=== PATIENT | female | born 1960 | race Two or more races ===

== ENCOUNTER → 2016-11-29 | Outpatient (CLI) | payer BC ==
[~2016-11-29] MED LIST: ASPI81TA4 PO; COLA50CA3 PO; GASTROGRAFIN SOLUTION 30ML (Q9963) As Ordered ONE; ISOVUE-370 76% 100ML VIAL (Q9967) As Ordered ONE; PERC7.5T12 PO
--- NOTE | 2016-11-29 17:23 | REP ---
CT abdomen and pelvis with IV contrast. History: Left lower quadrant abdominal pain. Comparison CT study: February 21, 2013. CT contrast dose: 100 ml of intravenous Isovue 370. CT findings: Preliminary digital grievance and appeals specialist radiograph demonstrates a normal bowel gas pattern and a staghorn calculus in the region of the left kidney. The lung bases are clear. There is no evidence of pleural effusion or ascites. The liver is markedly hypodense consistent with fairly advanced fatty infiltration of the liver. This is similar to the prior CT study, perhaps more pronounced. The gallbladder contains small calcified gallstones in the dependent portion. There are several calcifications in the head of the pancreas and the tail of the pancreas consistent with previous pancreatitis. This is unchanged as well. No pancreatic mass or cyst. No adrenal lesion is seen on either side. The right kidney enhances normally and is morphologically intact. No hydronephrosis or right renal calculus is seen. The left kidney shows rather marked cortical scarring and overall atrophy. It measures 9.3 cm in length. There is moderate to marked intrarenal hydronephrosis due to a staghorn calculus measuring 2.8 cm in greatest diameter. This calculus appears to be at least partially obstructing the ureteropelvic junction. There is some thickening and enhancement of the ureteral wall below the calculus in the proximal ureter. This may reflect pyelitis. There are other intrarenal calculi within the dilated intrarenal collecting system. These include a 1 cm calculus in the lower pole collecting system and several smaller calculi. These findings are similar to the prior CT study. No bladder, uterine or ovarian abnormality is seen. The patient is status post ventral hernia repair and there is a seroma cavity along the anterior abdominal wall below the level of the umbilicus. This is decreased in size when compared with the prior study from February 21, 2013. It currently measures 4.8 cm medial to lateral by 2.9 cm anterior to posterior by 6.6 cm cranial to caudal. No abdominal wall defect is seen. Impression: 1. Marked diffuse fatty infiltration of the liver. 2. Cholelithiasis. 3. Pancreatic calcifications consistent with chronic pancreatitis. 4. Atrophic, scarred left kidney containing multiple calculi including a 2.8 cm staghorn calculus partially obstructing the renal pelvis on the left. There is enhancement and slight thickening of the ureteral wall below this consistent with pyelitis. 5. Postop seroma anterior abdominal wall, decreased in size compared to the 2013 prior study. Signed by Petr Almaguer MD 11/30/2016 02:12 P
== END ==
LOC: M RAD 14:40
PROVIDERS: ATTEND Surgery
DX: K76.0 Fatty (change of) liver, not elsewhere classified (principal); K80.20 Calculus of gallbladder without cholecystitis without obstruction; N20.0 Calculus of kidney
CPT/HCPCS: 74177; Q9963; Q9967

== ENCOUNTER → 2016-12-21 | Outpatient (REF) | payer BC ==
[~2016-12-21] MED LIST changes: -GASTROGRAFIN SOLUTION 30ML (Q9963) As Ordered ONE; -ISOVUE-370 76% 100ML VIAL (Q9967) As Ordered ONE
[2016-12-21 20:36] LABS: CALCIUM OXALATE CRYSTALS LARGE; YEAST LIKE CELL URINE AUTO SMALL
== END ==
LOC: M SMT 16:55
PROVIDERS: ATTEND Nurse Practitioner Women's Health
DX: N20.0 Calculus of kidney (principal)

== ENCOUNTER → 2016-12-21 | Outpatient (CLI) | payer BC ==
[~2016-12-21] MED LIST changes: +LIDOCAINE 1% MDV 20ML VIAL As Ordered ONE
--- NOTE | 2016-12-21 15:48 | REP ---
ULTRASOUND GUIDED SEROMA DRAIN: The procedure was performed under the direct supervision of Dr. Almaguer. The patient has a history of a 4.8 x 2.9 x 6.6 cm anterior abdominal wall seroma seen on the previous CAT scan dated 12/10/2016. The risks and benefits of the procedure were explained to the patient and informed consent was obtained. The abdominal seroma was localized using ultrasound guidance. The skin was prepped and draped in a sterile fashion. 1% Xylocaine was used as a local anesthetic. Using ultrasound guidance an attempt was made to advance an 8-Bahraini SKATER APDL Catheter into the seroma, however, it could not be advanced beyond the rind of the seroma. The catheter was removed and a 5-Bahraini SKATER Centesis Catheter was inserted. 5 mL of reddish-brown fluid was withdrawn and sent to the lab. The patient tolerated the procedure well and there were no immediate complications. After the appropriate amount of monitored convalescence the patient was discharged from the department. Reviewed by STEPHANIE Antonio 12/21/2016 04:04 PEdited and Signed by Petr Almaguer MD 12/21/2016 05:16 P
== END ==
LOC: M RADPRO 08:18
PROVIDERS: ATTEND Surgery
DX: L76.34 Postprocedural seroma of skin and subcutaneous tissue following other procedure (principal); R10.814 Left lower quadrant abdominal tenderness; Z88.7 Allergy status to serum and vaccine; Z88.8 Allergy status to other drugs, medicaments and biological substances; Z79.899 Other long term (current) drug therapy

== ENCOUNTER → 2016-12-28 | Outpatient (CLI) | payer BC ==
[~2016-12-28] MED LIST changes: +FUROSEMIDE 20 MG/2 ML VIAL (J1940) As Ordered ONE; -LIDOCAINE 1% MDV 20ML VIAL As Ordered ONE
--- NOTE | 2016-12-28 15:29 | REP ---
NUCLEAR RENAL SCINTIGRAPHY WITH DIFFERENTIAL FLOW AND FUNCTION ANALYSIS AND POST-LASIX WASHOUT VENOGRAPHY: HISTORY: Staghorn calculus. Atrophic kidney. Hydronephrosis with obstruction. The patient reports left flank pain. COMPARISON: CT study, November 29, 2016. TECHNIQUE: 8.7 mCi technetium 99m MAG-3 is injected, and posterior flow and excretory phase images are acquired. Renal cortical regions of interest are drawn, and time activity curves are plotted for renal function analysis. 20 mg of intravenous Lasix is given and post-Lasix washout venography is performed bilaterally. SCINTIGRAPHIC FINDINGS: Posterior flow study shows delayed appearance of radiotracer in the atrophic left kidney. Excretory phase images show symmetric visualization of the renal collecting system bilaterally. There is, however, evidence of moderate hydronephrosis in the atrophic left kidney. The left ureter is labeled indicating that there is no evidence of complete blockage. Right ureter is labeled as well. Pre- and postvoid bladder images show persistent dilated collecting system uptake in the left kidney. Differential function analysis shows asymmetric renal cortical counts with 18% of overall renal cortical counts accumulated in the left kidney and 82% in the right kidney. [id number] activity is normal bilaterally at 3 minutes on the left and 2 minutes on the right. Time to half-max activity is normal bilaterally at 8.9 minutes on the left and 6.3 minutes on the right. Post-Lasix venography shows time to half-max Lasix activity at 13.5 minutes on the left and 12 minutes on the right. IMPRESSION: Asymmetric kidneys with atrophy and hydronephrosis on the left. Post-Lasix washout shows fairly good washout indicating lack of complete obstruction. Signed by Petr Almaguer MD 12/28/2016 05:30 P
== END ==
LOC: M RAD 09:49
PROVIDERS: ATTEND Nurse Practitioner Women's Health
DX: N20.0 Calculus of kidney (principal)
CPT/HCPCS: 78708; A9562; J1940

== ENCOUNTER → 2017-02-07 | Outpatient (CLI) | payer BC ==
[~2017-02-07] MED LIST changes: +DYMI137S; -FUROSEMIDE 20 MG/2 ML VIAL (J1940) As Ordered ONE; +GLUCPOW24 PO; +METO-398 PO; +MULTCAP11 PO; +VITAPOW41 PO
[2017-02-07 11:05] LABS: MEAN CORPUSCULAR HEMOGLOBIN 29.9 pg (27.0-33.0); MEAN CORPUSCULAR HGB CONC 33.7 g/dl (32.0-36.5); MEAN CORPUSCULAR VOLUME 88.8 fl (80.0-96.0); PLATELET COUNT, AUTOMATED 337 10^3/uL (150-450); WHITE BLOOD COUNT 7.6 10^3/uL (4.0-10.0)
--- NOTE | 2017-02-07 11:16 | REP ---
TWO VIEW CHEST: COMPARISON: 01/23/2014. There is no evidence of acute infiltrate. No pleural effusion is seen. The heart is normal in size. The mediastinal silhouette is unremarkable. The visualized osseous structures are intact. There are degenerative changes of the spine. IMPRESSION: No acute pulmonary disease. Signed by Michael Raymundo MD 02/07/2017 12:41 P
[2017-02-07 11:40] LABS: INR 0.86
[2017-02-07 12:24] LABS: ANION GAP 6 MEQ/L (8-16); BLOOD UREA NITROGEN 10 MG/DL (7-18); CALCIUM LEVEL 9.9 MG/DL (8.5-10.1); CARBON DIOXIDE LEVEL 30 MEQ/L (21-32); CHLORIDE LEVEL 101 MEQ/L (98-107); CREATININE FOR GFR 0.75 MG/DL (0.55-1.02); GLOMERULAR FILTRATION RATE > 60.0 (>51); GLUCOSE, FASTING 164 MG/DL (70-105); POTASSIUM SERUM 4.4 MEQ/L (3.5-5.1); SODIUM LEVEL 137 MEQ/L (136-145)
--- NOTE | 2017-02-07 21:13 | ECGEPIP ---
Stationary ECG Study [facility] Test Date: 2017-02-07 Pat Name: PATRICK HAYNES Department: Room: - Gender: F Perfume Compounder: [facility] : 1960 Requested By: CHAN Kirby Order Number: [id number] Reading MD: Michael Yusuf Measurements Intervals [place] Rate: 70 P: 13 WA: 163 QRS: -34 QRSD: 100 T: 3 QT: 356 QTc: 386 Interpretive Statements Normal sinus rhythm Left axis deviation Incomplete right bundle branch block Nonspecific T wave abnormality Probable pulmonary disease No significant change when compared to prior tracing of 01/23/2014 Electronically Signed On 02-07-2017 21:12:58 EST by Michael Yusuf
== END ==
LOC: M LAB 10:10
PROVIDERS: ATTEND Urology
DX: Z01.818 Encounter for other preprocedural examination (principal); N26.1 Atrophy of kidney (terminal)

== ENCOUNTER 2017-02-22 06:05 | Inpatient (IN) | payer BC ==
[~2017-02-22] VITALS: Ht 162.6 cm; Wt 85.0 kg
[2017-02-22] VITALS (7 sets, daily range): BP systolic 98–138; BP diastolic 53–78
[2017-02-22] MEDS: CIPROFLOXACIN 500 MG TAB PO SCH ×2 (06:00→17:08)
[2017-02-22] MEDS ORDERED: LIDOCAINE 1% MDV 20ML VIAL SQ PRN (06:15)
[2017-02-22] MEDS ORDERED: LR 1,000 ML IV SCH ×2 (06:15→11:30)
[2017-02-22] MEDS ORDERED: MIDAZOLAM INJ 2 MG/2 ML VIAL (J2250) As Ordered ONE (07:08)
[2017-02-22] MEDS ORDERED: fentaNYL 100 MCG/2 ML INJECTION (J3010) As Ordered ONE (07:08)
[2017-02-22] MEDS ORDERED: SCOPOLAMINE 1.5 MG TRANSDERMAL As Ordered ONE (07:13)
[2017-02-22] MEDS ORDERED: SCOPOLAMINE 1.5 MG TRANSDERMAL TOP ONE (07:30)
[2017-02-22] MEDS ORDERED: ROCURONIUM BROMIDE 50 MG/5 ML VIAL As Ordered ONE (08:20)
[2017-02-22] MEDS ORDERED: HYDROmorphone HCL 2 MG/ML 1ML VIAL (J1170) As Ordered ONE ×2 (08:32→10:37)
[2017-02-22] MEDS ORDERED: PHENYLephrine HCL 500 MCG/5 ML (100MCG/ML) SYRINGE (J2370) As Ordered ONE ×2 (08:45→10:18)
[2017-02-22] MEDS ORDERED: KETOROLAC 60 MG/2 ML VIAL (J1885) As Ordered ONE (08:45)
[2017-02-22] MEDS ORDERED: ONDANSETRON 4MG/2ML VIAL (J2405) As Ordered ONE (08:45)
[2017-02-22] MEDS ORDERED: LIDOCAINE 2% INJ 100 MG/5 ML SDV (FOR ANES.) As Ordered ONE (08:45)
[2017-02-22] MEDS ORDERED: ePHEDrine SULFATE 25 MG/5 ML(5MG/ML) SYRINGE As Ordered ONE (08:45)
[2017-02-22] MEDS ORDERED: PROPOFOL 200 MG/20 ML VIAL As Ordered ONE ×2 (08:45→10:05)
[2017-02-22] MEDS ORDERED: dexameTHASONE 4 MG/ML 1ML VIAL (J1100) As Ordered ONE (08:45)
[2017-02-22] MEDS ORDERED: SUGAMMADEX SODIUM 500 MG/5 ML VIAL (BRIDION) As Ordered ONE (10:18)
[2017-02-22] MEDS ORDERED: oxyCODONE 5MG TAB PO PRN (11:30)
[2017-02-22] MEDS ORDERED: HYDROmorphone HCL 1 MG/ML SYRINGE (J1170) IV PRN (11:30)
[2017-02-22] MEDS ORDERED: PERCOCET 5MG/325MG TAB PO PRN (11:30)
[2017-02-22] MEDS ORDERED: MORPHINE 4 MG/ML 1ML SYRINGE IV PRN (11:30)
[2017-02-22] MEDS ORDERED: fentaNYL 100 MCG/2 ML INJECTION (J3010) IV PRN (11:30)
[2017-02-22] MEDS ORDERED: ONDANSETRON 4MG/2ML VIAL (J2405) IV PRN (11:30)
[2017-02-22 11:35] LABS: MEAN CORPUSCULAR HEMOGLOBIN 30.2 pg (27.0-33.0); MEAN CORPUSCULAR HGB CONC 33.7 g/dl (32.0-36.5); MEAN CORPUSCULAR VOLUME 89.4 fl (80.0-96.0); PLATELET COUNT, AUTOMATED 246 10^3/uL (150-450); RED CELL DISTRIBUTION WIDTH 11.9 % (11.5-14.5); WHITE BLOOD COUNT 10.4 10^3/uL (4.0-10.0)
[2017-02-22 12:07] LABS: ANION GAP 5 MEQ/L (8-16); BLOOD UREA NITROGEN 15 MG/DL (7-18); CALCIUM LEVEL 8.5 MG/DL (8.5-10.1); CARBON DIOXIDE LEVEL 28 MEQ/L (21-32); CHLORIDE LEVEL 104 MEQ/L (98-107); CREATININE FOR GFR 0.83 MG/DL (0.55-1.02); GLOMERULAR FILTRATION RATE > 60.0 (>51); GLUCOSE, FASTING 250 MG/DL (70-105); POTASSIUM SERUM 4.7 MEQ/L (3.5-5.1); SODIUM LEVEL 137 MEQ/L (136-145)
[2017-02-22] MEDS: ONDANSETRON 4MG/2ML VIAL (J2405) IV PRN (13:16)
[2017-02-22] MEDS ORDERED: ACETAMINOPHEN 650MG ER TAB (TYLENOL ARTHRITIS) PO SCH (14:00)
[2017-02-22] MEDS ORDERED: ACETAMINOPHEN 325 MG TAB As Ordered ONE (14:12)
[2017-02-22] MEDS: PANTOPRAZOLE 40MG INJ (PROTONIX) (C9113) IV SCH (17:07)
[2017-02-22] MEDS: KETOROLAC 30 MG/ML VIAL (J1885) IV SCH (17:08)
[2017-02-22] MEDS: KCL 20MEQ IN D5/0.45NS 1000ML 1,000 ML IV SCH ×2 (17:09→22:24)
--- NOTE | 2017-02-22 18:39 | RO ---
DATE OF PROCEDURE: 02/22/2017 PREPROCEDURE DIAGNOSIS: Left symptomatic atrophic kidney. POSTPROCEDURE DIAGNOSIS: Left symptomatic atrophic kidney. PROCEDURE: Robotic-assisted left total nephrectomy. SURGEON: Brian Alvarado MD INSPECTOR FLOOR: Macy Valdez ANESTHESIA: General. FINDINGS: Left symptomatic atrophic kidney plus staghorn. COMPLICATIONS: None. ESTIMATED BLOOD LOSS: 10 mL. HISTORY OF THE PRESENT ILLNESS: A 56-year-old female patient who has a left atrophic kidney with a left staghorn, symptomatic. For this reason, the patient has consented for a robotic-assisted left total nephrectomy. DESCRIPTION OF PROCEDURE: In a patient under general anesthesia in decubito lateral position with the right side down and the left side up, with the patient secured to the bed with a beanbag and straps, with a Kraus catheter draining the bladder, #16-Albanian Kraus with a 10 mL balloon, we started by prepping and draping the area of concern, which included the entire genitalia and abdomen. We started by doing an incision in the midclavicular line at the level of the umbilicus, 4 cm away from the umbilicus more lateral, through this incision, transverse 2 cm incision in the skin, we opened the peritoneal cavity and introduced a 12 mm balloon trocar. Inflated the balloon trocar to 40 mL. Through this trocar, we insufflated the abdomen with CO2 at a maximum pressure of 15 and high flow. Under handheld robotic camera assistance, we placed the other trocars. One trocar subcostally in the midclavicular line, 8 cm away from the optic port, two other trocars in the left lower quadrant of the abdomen, one in the midclavicular line and the other one in the anterior axillary line. Between the midclavicular line trocar and the optic port, we placed a 15 mm medical staff assistant port for the Endo Catch. We then proceeded to dock the robot. On the left arm we used monopolar scissors, on the right arm we used bipolar PK and ProGrasp. We then proceeded to actually dissect the line of Toldt, dissect the adhesions also. We retracted the descending colon toward the midline. We dissected the gonadal vein and the ureter and with the third arm, we retracted the ureter and gonadal vein laterally. This exposed the hilum. We dissected the renal vein and the renal artery and with a GI stapler 60 mm times 2.5 mm, we secured the renal vein and artery in one staple line. We then proceeded to dissect the upper pole, dissected the adrenal away from the kidney and dissected the lateral pole with monopolar scissors. Once the kidney was completely dissected, with the Hem-o-loks, we clipped the gondal vein and also clipped the ureter times two and cut it in the middle. Once the kidney was completely mobilized, we placed it into a 15 mm Endo Catch bag. We then proceeded to secure hemostasis. There were no bleeding vessels. At that moment in time, we took the third arm out and we took out all the instruments, we undocked the robot, we took the optic port, took all the trocars out, connected the two incisions from the medical staff assistant port and the right [place] to 5 cm in length transverse incision and opened the wound and took out the kidney in an Endo Catch bag. We then closed the incision with PDS #1 starting from each angle in two layers and tying in the middle. We closed the skin incision with #4-0 Monocryls. We closed the optic port incision with #2-0 Vicryls in UR-6 needles times four the first layer, times four the second layer, we closed the skin on top of this one with #4-0 Monocryls in a running fashion, subcuticular stitches. We then placed Mastisol, Steri-Strips, Telfa and Tegaderm on top of each incision site, Kraus catheter remained in place. The patient will pass to recovery and then to the floor. Once she is tolerating a regular diet and ambulating very well, she will be discharged home. There were no complications. Left kidney was sent for permanent pathology analysis.
[2017-02-22] MEDS: METOPROLOL TART 25 MG TABLET PO SCH (21:00)
[2017-02-22] MEDS: ACETAMINOPHEN 650MG ER TAB (TYLENOL ARTHRITIS) PO SCH (21:59)
[2017-02-23] VITALS (8 sets, daily range): BP systolic 104–139; BP diastolic 57–79
[2017-02-23] MEDS: KETOROLAC 30 MG/ML VIAL (J1885) IV SCH ×3 (01:30→17:17)
[2017-02-23] MEDS: CIPROFLOXACIN 500 MG TAB PO SCH ×2 (05:38→17:17)
[2017-02-23] MEDS: ACETAMINOPHEN 650MG ER TAB (TYLENOL ARTHRITIS) PO SCH ×3 (05:38→20:52)
[2017-02-23 06:59] LABS: MEAN CORPUSCULAR HEMOGLOBIN 29.6 pg (27.0-33.0); MEAN CORPUSCULAR HGB CONC 33.1 g/dl (32.0-36.5); MEAN CORPUSCULAR VOLUME 89.4 fl (80.0-96.0); PLATELET COUNT, AUTOMATED 218 10^3/uL (150-450); RED CELL DISTRIBUTION WIDTH 12.1 % (11.5-14.5); WHITE BLOOD COUNT 7.9 10^3/uL (4.0-10.0)
[2017-02-23 07:12] LABS: ANION GAP 6 MEQ/L (8-16); BLOOD UREA NITROGEN 9 MG/DL (7-18); CALCIUM LEVEL 8.1 MG/DL (8.5-10.1); CARBON DIOXIDE LEVEL 27 MEQ/L (21-32); CHLORIDE LEVEL 107 MEQ/L (98-107); CREATININE FOR GFR 0.84 MG/DL (0.55-1.02); GLOMERULAR FILTRATION RATE > 60.0 (>51); GLUCOSE, FASTING 216 MG/DL (70-105); POTASSIUM SERUM 4.3 MEQ/L (3.5-5.1); SODIUM LEVEL 140 MEQ/L (136-145)
[2017-02-23] MEDS: KCL 20MEQ IN D5/0.45NS 1000ML 1,000 ML IV SCH ×2 (09:07→17:18)
[2017-02-23] MEDS: PANTOPRAZOLE 40MG INJ (PROTONIX) (C9113) IV SCH (09:07)
[2017-02-23] MEDS: METOPROLOL TART 25 MG TABLET PO SCH ×2 (09:09→20:53)
[2017-02-23] MEDS: ONDANSETRON 4MG/2ML VIAL (J2405) IV PRN (20:54)
[2017-02-24] MEDS: ONDANSETRON 4MG/2ML VIAL (J2405) IV PRN (02:10)
[2017-02-24] MEDS: KCL 20MEQ IN D5/0.45NS 1000ML 1,000 ML IV SCH (02:11)
[2017-02-24] MEDS: KETOROLAC 30 MG/ML VIAL (J1885) IV SCH ×2 (03:12→11:13)
[2017-02-24] MEDS: CIPROFLOXACIN 500 MG TAB PO SCH (05:43)
[2017-02-24] MEDS: ACETAMINOPHEN 650MG ER TAB (TYLENOL ARTHRITIS) PO SCH (05:43)
[2017-02-24 06:00] VITALS: BP 140/72
[2017-02-24 06:39] LABS: MEAN CORPUSCULAR HEMOGLOBIN 29.9 pg (27.0-33.0); MEAN CORPUSCULAR HGB CONC 32.9 g/dl (32.0-36.5); MEAN CORPUSCULAR VOLUME 90.8 fl (80.0-96.0); PLATELET COUNT, AUTOMATED 189 10^3/uL (150-450); RED CELL DISTRIBUTION WIDTH 12.2 % (11.5-14.5); WHITE BLOOD COUNT 7.2 10^3/uL (4.0-10.0)
[2017-02-24 06:57] LABS: ANION GAP 8 MEQ/L (8-16); BLOOD UREA NITROGEN 10 MG/DL (7-18); CALCIUM LEVEL 8.5 MG/DL (8.5-10.1); CARBON DIOXIDE LEVEL 23 MEQ/L (21-32); CHLORIDE LEVEL 108 MEQ/L (98-107); GLOMERULAR FILTRATION RATE > 60.0 (>51); GLUCOSE, FASTING 210 MG/DL (70-105); POTASSIUM SERUM 4.4 MEQ/L (3.5-5.1); SODIUM LEVEL 139 MEQ/L (136-145)
[2017-02-24 08:04] VITALS: BP 140/78
[2017-02-24 08:06] VITALS: BP 140/78
[2017-02-24] MEDS: PANTOPRAZOLE 40MG INJ (PROTONIX) (C9113) IV SCH (08:35)
[2017-02-24] MEDS: METOPROLOL TART 25 MG TABLET PO SCH (08:36)
[2017-02-24] MEDS ORDERED: TYLE650T35 PO (10:36)
[2017-02-24] MEDS ORDERED: CIPR500T3 PO (10:37)
--- NOTE | 2017-02-24 17:06 | DSES ---
DATE OF ADMISSION: 02/22/2017 DATE OF DISCHARGE: 02/24/2017 ADMISSION DIAGNOSIS: Left atrophic kidney with a staghorn. DISCHARGE DIAGNOSIS: Left atrophic kidney with a staghorn. ADMITTING SURGEON: Dr. Brian Alvarado DISCHARGING SURGEON: Dr. Brian Alvarado HISTORY OF PRESENT ILLNESS: This is a 56-year-old female patient who has left flank pain, atrophic kidney, who has had multiple recurrent stone formations. She has a staghorn now in place and her function in that kidney is very poor. For this reason, she had decided for a robotic-assisted left nephrectomy. She had this surgery on 02/22/2017. After this procedure she was admitted to the hospital. HOSPITALIZATION COURSE: The patient did very well. By postoperative day #1 she was tolerating clear liquids. Her Kraus catheter was draining clear urine. For this reason, we discontinued the Kraus catheter on postoperative day #1. By postoperative day #2 she was ambulating very well, tolerating a regular diet. Her pain was controlled with by mouth pain medication, Toradol. She was passing gas with minimal abdominal. No nausea. No vomiting. For this reason she requested to go home, and we agreed upon this. The patient will go home with the following medications: Tylenol extended release 650 mg, one tablet by mouth every 8 hours by mouth as needed for pain. She will go home with ciprofloxacin 500 mg, one tablet by mouth twice a day for 10 days. She will followup at [facility] in about a week. There were no complications during surgery or hospitalization. She may shower in 3 days. She cannot carry heavy weightlifting above 20 pounds.
== END 2017-02-24 12:35 | disposition home or self-care (01) | DRG 443 ==
LOC: M OR 06:05 → M MSPAV 16:00
PROVIDERS: ADMIT Urology; ATTEND Urology
PROC: 8E0W4CZ Robotic Assisted Procedure of Trunk Region, Percutaneous Endoscopic Approach (ICD-10-PCS; 2017-02-22)
PROC: 0TT14ZZ Resection of Left Kidney, Percutaneous Endoscopic Approach (ICD-10-PCS; principal; 2017-02-22 07:30)
DX: N20.0 Calculus of kidney (principal); N26.1 Atrophy of kidney (terminal)

== ENCOUNTER → 2017-03-15 | Outpatient (REF) | payer BC ==
[~2017-03-15] MED LIST changes: +CIPR500T3 PO; +TYLE650T35 PO
[2017-03-15 12:50] LABS: MEAN CORPUSCULAR HEMOGLOBIN 29.1 pg (27.0-33.0); MEAN CORPUSCULAR HGB CONC 32.9 g/dl (32.0-36.5); MEAN CORPUSCULAR VOLUME 88.6 fl (80.0-96.0); PLATELET COUNT, AUTOMATED 325 10^3/uL (150-450); RED CELL DISTRIBUTION WIDTH 11.9 % (11.5-14.5); WHITE BLOOD COUNT 6.8 10^3/uL (4.0-10.0)
[2017-03-15 13:45] LABS: ANION GAP 7 MEQ/L (8-16); BLOOD UREA NITROGEN 13 MG/DL (7-18); CALCIUM LEVEL 9.3 MG/DL (8.5-10.1); CARBON DIOXIDE LEVEL 30 MEQ/L (21-32); CHLORIDE LEVEL 102 MEQ/L (98-107); CREATININE FOR GFR 0.76 MG/DL (0.55-1.02); GLOMERULAR FILTRATION RATE > 60.0 (>51); GLUCOSE, FASTING 203 MG/DL (70-105); POTASSIUM SERUM 4.2 MEQ/L (3.5-5.1); SODIUM LEVEL 139 MEQ/L (136-145)
== END ==
LOC: M SFHCADAM 10:26
PROVIDERS: ATTEND Urology
DX: N26.1 Atrophy of kidney (terminal) (principal)

== ENCOUNTER 2017-03-21 00:44 | Emergency (ER) | payer BC | END 2017-03-21 03:16 | disposition left against medical advice (07) | LOC: M ED 00:44 | DX: Z71.1 Person with feared health complaint in whom no diagnosis is made (principal); Z53.21 Procedure and treatment not carried out due to patient leaving prior to being seen by health care provider ==

== ENCOUNTER → 2017-03-29 | Outpatient (REF) | payer BC ==
[2017-03-29 21:44] LABS: ANION GAP 7 MEQ/L (8-16); BLOOD UREA NITROGEN 10 MG/DL (7-18); CALCIUM LEVEL 9.3 MG/DL (8.5-10.1); CARBON DIOXIDE LEVEL 29 MEQ/L (21-32); CHLORIDE LEVEL 103 MEQ/L (98-107); CREATININE FOR GFR 0.88 MG/DL (0.55-1.02); GLOMERULAR FILTRATION RATE > 60.0 (>51); GLUCOSE, FASTING 187 MG/DL (70-105); POTASSIUM SERUM 4.3 MEQ/L (3.5-5.1); SODIUM LEVEL 139 MEQ/L (136-145)
== END ==
LOC: M SMT 19:50
DX: Z90.5 Acquired absence of kidney (principal)
CPT/HCPCS: 80048

== ENCOUNTER → 2017-04-05 | Outpatient (CLI) | payer BC ==
[~2017-04-05] MED LIST changes: -ASPI81TA4 PO; -CIPR500T3 PO; -COLA50CA3 PO; -DYMI137S; -GLUCPOW24 PO; +ISOVUE-370 76% 100ML VIAL (Q9967) As Ordered; -METO-398 PO; -MULTCAP11 PO; -PERC7.5T12 PO; -TYLE650T35 PO; -VITAPOW41 PO
== END ==
LOC: M RAD 07:46
DX: Z90.5 Acquired absence of kidney (principal); K80.00 Calculus of gallbladder with acute cholecystitis without obstruction; K44.9 Diaphragmatic hernia without obstruction or gangrene; K57.90 Diverticulosis of intestine, part unspecified, without perforation or abscess without bleeding
CPT/HCPCS: Q9967

== ENCOUNTER → 2017-07-22 | Outpatient (REF) | payer BC ==
[2017-07-22 11:42] LABS: HEMATOCRIT 45.3 % (36.0-47.0); HEMOGLOBIN 15.1 g/dl (12.0-15.5); MEAN CORPUSCULAR HEMOGLOBIN 29.7 pg (27.0-33.0); MEAN CORPUSCULAR HGB CONC 33.3 g/dl (32.0-36.5); MEAN CORPUSCULAR VOLUME 89.2 fl (80.0-96.0); PLATELET COUNT, AUTOMATED 283 10^3/uL (150-450); RED BLOOD COUNT 5.08 10^6/uL (4.00-5.40); RED CELL DISTRIBUTION WIDTH 12.2 % (11.5-14.5); WHITE BLOOD COUNT 5.2 10^3/uL (4.0-10.0)
[2017-07-22 12:03] LABS: ANION GAP 6 MEQ/L (8-16); BLOOD UREA NITROGEN 11 MG/DL (7-18); CALCIUM LEVEL 9.5 MG/DL (8.5-10.1); CARBON DIOXIDE LEVEL 29 MEQ/L (21-32); CHLORIDE LEVEL 103 MEQ/L (98-107); CREATININE FOR GFR 0.88 MG/DL (0.55-1.30); GLOMERULAR FILTRATION RATE > 60.0 (>51); GLUCOSE, FASTING 266 MG/DL (70-100); POTASSIUM SERUM 4.7 MEQ/L (3.5-5.1); SODIUM LEVEL 138 MEQ/L (136-145)
== END ==
LOC: M LAB REF 11:25
DX: N26.1 Atrophy of kidney (terminal) (principal)
CPT/HCPCS: 80048

== ENCOUNTER → 2017-12-01 | Outpatient (REF) | payer BC ==
[2017-12-01 10:33] LABS: HEMATOCRIT 49.7 % (36.0-47.0); HEMOGLOBIN 16.4 g/dl (12.0-15.5); MEAN CORPUSCULAR HEMOGLOBIN 29.9 pg (27.0-33.0); MEAN CORPUSCULAR VOLUME 90.5 fl (80.0-96.0); PLATELET COUNT, AUTOMATED 267 10^3/uL (150-450); RED BLOOD COUNT 5.49 10^6/uL (4.00-5.40); WHITE BLOOD COUNT 5.7 10^3/uL (4.0-10.0)
[2017-12-01 11:07] LABS: ESTIMATED AVERAGE GLUCOSE 263 MG/DL (60-110); HEMOGLOBIN A1c 10.8 %
[2017-12-01 11:32] LABS: ALBUMIN 3.9 GM/DL (3.2-5.2); ALBUMIN/GLOBULIN RATIO 0.95 (1.00-1.93); ALKALINE PHOSPHATASE 139 U/L (45-117); ALT/SGPT 54 U/L (12-78); ANION GAP 7 MEQ/L (8-16); AST/SGOT 20 U/L (7-37); BILIRUBIN,TOTAL 0.5 MG/DL (0.2-1.0); BLOOD UREA NITROGEN 10 MG/DL (7-18); CALCIUM LEVEL 9.1 MG/DL (8.5-10.1); CARBON DIOXIDE LEVEL 27 MEQ/L (21-32); CHLORIDE LEVEL 105 MEQ/L (98-107); CHOLESTEROL LEVEL 239 MG/DL (<200); CHOLESTEROL RISK RATIO 6.459 (<5); CREATININE FOR GFR 0.84 MG/DL (0.55-1.30); GLOMERULAR FILTRATION RATE > 60.0 (>51); GLUCOSE, FASTING 266 MG/DL (70-100); HDL CHOLESTEROL 37 MG/DL (>40); LDL CHOLESTEROL 148 MG/DL (<100); NON-HDL-C 202 MG/DL; POTASSIUM SERUM 4.4 MEQ/L (3.5-5.1); SODIUM LEVEL 139 MEQ/L (136-145); TRIGLYCERIDES LEVEL 271 MG/DL (<150)
[2017-12-01 14:37] LABS: TOTAL 25(OH) VITAMIN D 22.6 NG/ML (30.0-100.0)
== END ==
LOC: M LAB REF 10:05
DX: I10 Essential (primary) hypertension (principal); E11.9 Type 2 diabetes mellitus without complications
CPT/HCPCS: 84443

== ENCOUNTER → 2018-08-04 | Outpatient (REF) | payer BC ==
[~2018-08-04] MED LIST changes: +ASPI81TA4 PO; +CALC600T60 PO; +CIPR500T3 PO; +COLA50CA3 PO; +D 50CAP2 PO; +DYMI137S; +GLUCPOW24 PO; -ISOVUE-370 76% 100ML VIAL (Q9967) As Ordered; +METF500T13 PO; +METO1TAB32 PO; +METO200T28 PO; +MULTCAP11 PO; +NO ITAB PO; +OMEP40CA2 PO; +PERC7.5T12 PO; +QC F0.52 PO; +TYLE650T35 PO; +VITAPOW41 PO
[2018-08-04 11:54] LABS: BASO % 0.5 % (0.0-1.0); EOS # 0.1 10^3/uL (0.0-0.50); EOS % 1.2 % (0.0-3.0); HEMATOCRIT 47.1 % (36.0-47.0); HEMOGLOBIN 15.6 g/dl (12.0-15.5); LYMPH # 2.3 10^3/uL (1.5-4.5); LYMPH % 41.1 % (24.0-44.0); MEAN CORPUSCULAR HEMOGLOBIN 30.5 pg (27.0-33.0); MEAN CORPUSCULAR HGB CONC 33.1 g/dl (32.0-36.5); MONO # 0.5 10^3/uL (0.0-0.8); MONO % 7.9 % (0.0-5.0); NEUTROPHILS # 2.8 10^3/uL (1.8-7.7); NEUTROPHILS % 48.9 % (36.0-66.0); PLATELET COUNT, AUTOMATED 264 10^3/uL (150-450); RED BLOOD COUNT 5.12 10^6/uL (4.00-5.40); WHITE BLOOD COUNT 5.7 10^3/uL (4.0-10.0)
[2018-08-04 12:14] LABS: ALBUMIN 3.9 GM/DL (3.2-5.2); ALT/SGPT 112 U/L (12-78); AMYLASE 45 U/L (25-115); BILIRUBIN,DIRECT 0.1 MG/DL (0.0-0.2); BILIRUBIN,TOTAL 0.5 MG/DL (0.2-1.0); BLOOD UREA NITROGEN 11 MG/DL (7-18); CREATININE FOR GFR 0.76 MG/DL (0.55-1.30); FOLATE > 24.0 NG/ML (>5.4); GLOMERULAR FILTRATION RATE > 60.0 (>51); LIPASE 341 U/L (73-393); TOTAL PROTEIN 8.2 GM/DL (6.4-8.2); VITAMIN B12 LEVEL 841 PG/ML (247-911)
[2018-08-04 12:36] LABS: H PYLORI QUALITATIVE IgG NEGATIVE (NEGATIVE)
[2018-08-08 08:06] LABS: IgA SERUM (part of Subclasses) 364 mg/dL (87-352); TISSUE TRANSGLUTAMINASE IgA <2 U/mL (0-3)
== END ==
LOC: M LAB REF 11:26
PROVIDERS: ATTEND Internal Medicine Gastroenterology
DX: R10.815 Periumbilic abdominal tenderness (principal)

== ENCOUNTER → 2018-08-18 | Outpatient (CLI) | payer BC ==
--- NOTE | 2018-08-18 09:21 | REP ---
Right upper quadrant sonography: History: Abdomen pain and abnormal liver tests. Evaluate liver gallbladder, bile duct and pancreas. Comparison CT study April 05, 2017. Sonographic findings: Scanning through the right upper quadrant of the abdomen demonstrates multiple mobile calculi in the gallbladder lumen. The common bile duct is mildly prominent at 0.8 cm. No pericholecystic fluid or gallbladder wall thickening is seen. The liver is very echodense and poorly insonated consistent with advanced fatty infiltration. This correlates with the CT findings. The liver parenchyma is not well evaluated sonographically. Liver is felt to be enlarged. Midclavicular craniocaudal diameter is 22.4 cm by ultrasound. Limited views of the pancreas show no abnormality. There is no evidence of ascites. The right kidney is unremarkable measuring 12.1 x 8.3 x 6.5 cm. Impression: Significant fatty infiltration of the liver. The liver appears enlarged with craniocaudal dimension of 22.4 cm in the midclavicular line. Multiple small gallstones are seen in the gallbladder. The common bile duct is slightly prominent at 0.8 cm. Electronically Signed by Petr Almaguer MD 08/18/2018 03:53 P
== END ==
LOC: M RAD 06:28
PROVIDERS: ATTEND Internal Medicine Gastroenterology
DX: R10.13 Epigastric pain (principal); K76.0 Fatty (change of) liver, not elsewhere classified; K80.00 Calculus of gallbladder with acute cholecystitis without obstruction

== ENCOUNTER 2018-08-25 09:03 | Day surgery (SDC) | payer BC ==
[~2018-08-25] VITALS: Ht 162.6 cm; Wt 83.5 kg
[~2018-08-25 09:03] MED LIST changes: +NS 1,000 ML IV ONE
[2018-08-25] MEDS ORDERED: PROPOFOL 200 MG/20 ML VIAL As Ordered ONE ×2 (10:51→11:38)
[2018-08-25] MEDS ORDERED: LIDOCAINE 2% INJ 100 MG/5 ML SDV (FOR ANES.) As Ordered ONE (10:51)
[2018-08-25] MEDS ORDERED: ONDANSETRON 4MG/2ML VIAL (J2405) As Ordered ONE (11:03)
--- NOTE | 2018-08-25 12:04 | ROOR ---
Patient Name: Malu Lerma Procedure Date: 08/25/2018 11:02 AM Date of : 1960 Age: 57 Room: [facility] Gender: Female Note Status: Finalized Procedure: Upper GI endoscopy Indications: Epigastric abdominal pain, Dyspepsia Providers: Solomon Kauffman MD Referring MD: DAFNE LEON MD Requesting Provider: Medicines: Monitored Anesthesia Care Complications: No immediate complications. Procedure: Pre-Anesthesia Assessment: - Prior to the procedure, a History and Physical was performed, and patient medications and allergies were reviewed. The patient is competent. The risks and benefits of the procedure and the sedation options and risks were discussed with the patient. All questions were answered and informed consent was obtained. Patient identification and proposed procedure were verified by the physician, the nurse and the anesthesiologist in the procedure room. Mental Status Examination: alert and oriented. Airway Examination: normal oropharyngeal airway and neck mobility. Respiratory Examination: clear to auscultation. CV Examination: normal. Prophylactic Antibiotics: The patient does not require prophylactic antibiotics. Prior Anticoagulants: The patient has taken no previous anticoagulant or antiplatelet agents. ASA Grade Assessment: II - A patient with mild systemic disease. After reviewing the risks and benefits, the patient was deemed in satisfactory condition to undergo the procedure. The anesthesia plan was to use monitored anesthesia care (MAC). Immediately prior to administration of medications, the patient was re-assessed for adequacy to receive sedatives. The heart rate, respiratory rate, oxygen saturations, blood pressure, adequacy of pulmonary ventilation, and response to care were monitored throughout the procedure. The physical status of the patient was re-assessed after the procedure. The Endoscope was introduced through the mouth, and advanced to the second part of duodenum. The upper GI endoscopy was accomplished without difficulty. The patient tolerated the procedure well. Findings: The Z-line was regular and was found 40 cm from the incisors. Scattered moderate inflammation characterized by erythema, friability, granularity and linear erosions was found in the gastric body and in the gastric antrum. Biopsies were taken with a cold forceps for histology. Biopsies were taken with a cold forceps for Helicobacter pylori testing. Verification of patient identification for the specimen was done by the physician and nurse using the patient's name, date and medical record number. Estimated blood loss was minimal. The duodenal bulb and second portion of the duodenum were normal. Biopsies for histology were taken with a cold forceps for evaluation of celiac disease. A non-bleeding diverticulum was found in the third portion of the duodenum. Impression: - Z-line regular, 40 cm from the incisors. - Gastritis. Biopsied. - Normal duodenal bulb and second portion of the duodenum. Biopsied. - Non-bleeding duodenal diverticulum. Recommendation: - Patient has a contact number available for emergencies. The signs and symptoms of potential delayed complications were discussed with the patient. Return to normal activities tomorrow. Written discharge instructions were provided to the patient. - High fiber diet. - Continue present medications. - Await pathology results. - Telephone GI clinic for pathology results in 1 week. - Return to primary care physician. Solomon Kauffman MD Solomon Kauffman MD 08/25/2018 12:03:43 PM Electronically signed by Solomon Kauffman MD Number of Addenda: 0 Note Initiated On: 08/25/2018 11:02 AM Estimated Blood Loss: Estimated blood loss was minimal.
--- NOTE | 2018-08-25 12:10 | ROOR ---
Patient Name: Malu Lerma Procedure Date: 08/25/2018 11:03 AM Date of : 1960 Age: 57 Room: [facility] Gender: Female Note Status: Finalized Procedure: Colonoscopy Indications: Screening for colorectal malignant neoplasm Providers: Solomon Kauffman MD Referring MD: DAFNE LEON MD Requesting Provider: Medicines: Monitored Anesthesia Care Complications: No immediate complications. Procedure: Pre-Anesthesia Assessment: - Prior to the procedure, a History and Physical was performed, and patient medications and allergies were reviewed. The patient is competent. The risks and benefits of the procedure and the sedation options and risks were discussed with the patient. All questions were answered and informed consent was obtained. Patient identification and proposed procedure were verified by the physician, the nurse and the anesthesiologist in the procedure room. Mental Status Examination: alert and oriented. Airway Examination: normal oropharyngeal airway and neck mobility. Respiratory Examination: clear to auscultation. CV Examination: normal. Prophylactic Antibiotics: The patient does not require prophylactic antibiotics. Prior Anticoagulants: The patient has taken no previous anticoagulant or antiplatelet agents. ASA Grade Assessment: II - A patient with mild systemic disease. After reviewing the risks and benefits, the patient was deemed in satisfactory condition to undergo the procedure. The anesthesia plan was to use monitored anesthesia care (MAC). Immediately prior to administration of medications, the patient was re-assessed for adequacy to receive sedatives. The heart rate, respiratory rate, oxygen saturations, blood pressure, adequacy of pulmonary ventilation, and response to care were monitored throughout the procedure. The physical status of the patient was re-assessed after the procedure. The Colonoscope was introduced through the anus and advanced to the terminal ileum, with identification of the appendiceal orifice and IC valve. The colonoscopy was technically difficult and complex due to restricted mobility of the colon and a tortuous colon. Successful completion of the procedure was aided by changing the patient to a supine position and straightening and shortening the scope to obtain bowel loop reduction. The patient tolerated the procedure well. The quality of the bowel preparation was good. The terminal ileum, ileocecal valve, appendiceal orifice, and rectum were photographed. Scope insertion time was 8 minutes. Scope withdrawal time was 10 minutes. The total duration of the procedure was 20 minutes. Findings: The perianal and digital rectal examinations were normal. The terminal ileum appeared normal. A 8 mm polyp was found in the ileocecal valve. The polyp was sessile. The polyp was removed with a cold snare. Resection and retrieval were complete. Verification of patient identification for the specimen was done by the physician and nurse using the patient's name, date and medical record number. Estimated blood loss was minimal. Patchy mild inflammation characterized by erythema and granularity was found in the ascending colon and in the cecum. Biopsies were taken with a cold forceps for histology. Four sessile polyps were found in the recto-sigmoid colon. The polyps were 3 to 5 mm in size. These polyps were removed with a cold biopsy forceps. Resection and retrieval were complete. Multiple small and large-mouthed diverticula were found from sigmoid to transverse colon. There was narrowing of the colon in association with the diverticular opening. Erythema was seen in association with the diverticular opening. There was no evidence of diverticular bleeding. Non-bleeding external and internal hemorrhoids were found during retroflexion. The hemorrhoids were large. Impression: - The examined portion of the ileum was normal. - One 8 mm polyp at the ileocecal valve, removed with a cold snare. Resected and retrieved. - Patchy mild inflammation was found in the ascending colon and in the cecum. Biopsied. - Four 3 to 5 mm polyps at the recto-sigmoid colon, removed with a cold biopsy forceps. Resected and retrieved. - Severe diverticulosis from sigmoid to transverse colon. There was narrowing of the colon in association with the diverticular opening. Erythema was seen in association with the diverticular opening. There was no evidence of diverticular bleeding. - Non-bleeding external and internal hemorrhoids. Recommendation: - Patient has a contact number available for emergencies. The signs and symptoms of potential delayed complications were discussed with the patient. Return to normal activities tomorrow. Written discharge instructions were provided to the patient. - High fiber diet. - Continue present medications. - Await pathology results. - Repeat colonoscopy in 5-10 years for surveillance based on pathology results. - Based on the biopsy results you will receive a phone call from GI clinic in 2-3 weeks to review the pathology results AND/OR your results will be faxed to your Primary care physician. - Return to primary care physician. Solomon Kauffman MD Solomon Kauffman MD 08/25/2018 12:10:29 PM Electronically signed by Solomon Kuaffman MD Number of Addenda: 0 Note Initiated On: 08/25/2018 11:03 AM Estimated Blood Loss: Estimated blood loss was minimal.
[2018-08-25 12:20] VITALS: BP 135/72
== END 2018-08-25 12:44 | disposition home or self-care (01) ==
LOC: M OPP 09:03
PROVIDERS: ATTEND Internal Medicine Gastroenterology
DX: Z12.11 Encounter for screening for malignant neoplasm of colon (principal); K64.8 Other hemorrhoids; D12.0 Benign neoplasm of cecum; K29.70 Gastritis, unspecified, without bleeding; D12.7 Benign neoplasm of rectosigmoid junction; R10.13 Epigastric pain; K57.10 Diverticulosis of small intestine without perforation or abscess without bleeding; Z79.84 Long term (current) use of oral hypoglycemic drugs; Z79.899 Other long term (current) drug therapy; Z87.891 Personal history of nicotine dependence
CPT/HCPCS: 43239; 45380; 45385; 88305; J2405

== ENCOUNTER → 2018-09-14 | Outpatient (CLI) | payer BC ==
[~2018-09-14] MED LIST changes: -NS 1,000 ML IV ONE
--- NOTE | 2018-09-14 14:03 | REP ---
MRCP examination: Without contrast study. History: Right upper quadrant pain abnormal liver studies. MRCP protocol. Comparison sonography August 18, 2018. Comparison CT study April 05, 2017. Technique: Axial and coronal T2-weighted scans are included. MRCP exam is acquired and maximal intensity projection images are generated and viewed rotationally. MRCP findings: Hepatomegaly is again noted. No focal hepatic or splenic lesion is seen. No pancreatic ductal dilation is observed. There is a small cyst in the pancreatic head measuring 6 mm. The common bile duct measures 7.5 mm in greatest diameter on today's images. The gallbladder is rather distended measuring 13.3 cm in greatest diameter. There is a small oval-shaped filling defect in the mid common bile duct segment 5 mm in greatest diameter consistent with a nonobstructive choledocholith. This is observed on maximal intensity projection images as well as source coronal scans, page 47 out of 60 series 501. Intrahepatic bile ducts are unremarkable. No stricture is appreciated. Impression: Suspect choledocholithiasis with a single small nonobstructive mid common bile duct stone. The gallbladder is distended. The common bile duct is borderline in size. The liver is enlarged. Electronically Signed by Petr Almaguer MD 09/14/2018 02:27 P
== END ==
LOC: M RAD 07:04
PROVIDERS: ATTEND Internal Medicine Gastroenterology
DX: R10.11 Right upper quadrant pain (principal); R94.5 Abnormal results of liver function studies; K83.8 Other specified diseases of biliary tract

== ENCOUNTER 2018-10-04 11:29 | Day surgery (SDC) | payer BC ==
[~2018-10-04] VITALS: Ht 162.6 cm; Wt 83.4 kg
[~2018-10-04 11:29] MED LIST changes: +GABA-845 PO; +NS 1,000 ML IV ONE
[2018-10-04] MEDS ORDERED: SCOPOLAMINE 1MG TRANSDERMAL PATCH As Ordered ONE (12:47)
[2018-10-04] MEDS ORDERED: SCOPOLAMINE 1MG TRANSDERMAL PATCH TOP ONE (13:00)
[2018-10-04] MEDS ORDERED: ROCURONIUM BROMIDE 50 MG/5 ML VIAL As Ordered ONE (13:30)
[2018-10-04] MEDS ORDERED: PROPOFOL 200 MG/20 ML VIAL As Ordered ONE (13:30)
[2018-10-04] MEDS ORDERED: LIDOCAINE 2% INJ 100 MG/5 ML SDV (FOR ANES.) As Ordered ONE (13:30)
[2018-10-04] MEDS ORDERED: MIDAZOLAM INJ 2 MG/2 ML VIAL (J2250) As Ordered ONE (13:31)
[2018-10-04] MEDS ORDERED: fentaNYL 100 MCG/2 ML INJECTION (J3010) As Ordered ONE (13:31)
[2018-10-04] MEDS ORDERED: ISOVUE-300 61% 50ML VIAL (Q9967) As Ordered ONE (13:34)
[2018-10-04] MEDS ORDERED: PHENYLephrine HCL 500 MCG/5 ML (100MCG/ML) SYRINGE (J2370) As Ordered ONE ×2 (14:24→14:44)
[2018-10-04] MEDS ORDERED: SUGAMMADEX SODIUM 500 MG/5 ML VIAL (BRIDION) As Ordered ONE (14:31)
[2018-10-04] MEDS ORDERED: ONDANSETRON 4MG/2ML VIAL (J2405) As Ordered ONE (14:31)
[2018-10-04] MEDS ORDERED: KETOROLAC 60 MG/2 ML VIAL (J1885) As Ordered ONE (14:31)
--- NOTE | 2018-10-04 15:28 | ROOR ---
Patient Name: Malu Lerma Procedure Date: 10/04/2018 1:34 PM Date of : 1960 Age: 57 Room: [facility] Gender: Female Note Status: Finalized Procedure: ERCP Indications: Bile duct stone(s) Providers: Solomon Kauffman MD Referring MD: 1. No Referring Physician 1. No Referring Physician, Admin. Requesting Provider: Medicines: Monitored Anesthesia Care Complications: No immediate complications. Procedure: Pre-Anesthesia Assessment: - Prior to the procedure, a History and Physical was performed, and patient medications and allergies were reviewed. The patient is competent. The risks and benefits of the procedure and the sedation options and risks were discussed with the patient. All questions were answered and informed consent was obtained. Patient identification and proposed procedure were verified by the physician, the nurse and the anesthesiologist in the procedure room. Mental Status Examination: alert and oriented. Airway Examination: normal oropharyngeal airway and neck mobility. Respiratory Examination: clear to auscultation. CV Examination: normal. Prophylactic Antibiotics: The patient does not require prophylactic antibiotics. Prior Anticoagulants: The patient has taken no previous anticoagulant or antiplatelet agents. ASA Grade Assessment: III - A patient with severe systemic disease. After reviewing the risks and benefits, the patient was deemed in satisfactory condition to undergo the procedure. The anesthesia plan was to use monitored anesthesia care (MAC). Immediately prior to administration of medications, the patient was re-assessed for adequacy to receive sedatives. The heart rate, respiratory rate, oxygen saturations, blood pressure, adequacy of pulmonary ventilation, and response to care were monitored throughout the procedure. The physical status of the patient was re-assessed after the procedure. The Duodenoscope was introduced through the mouth, and advanced to the duodenum and used to inject contrast into the bile duct. The ERCP was accomplished without difficulty. The patient tolerated the procedure well. Findings: The custom tailor film was normal. The esophagus was successfully intubated under direct vision. The scope was advanced to a normal major papilla in the descending duodenum without detailed examination of the pharynx, larynx and associated structures, and upper GI tract. The upper GI tract was grossly normal. A straight Roadrunner wire was passed into the biliary tree. The short-nosed traction sphincterotome was passed over the guidewire and the bile duct was then deeply cannulated. Contrast was injected. I personally interpreted the bile duct images. Ductal flow of contrast was adequate. Image quality was adequate. Contrast extended to the entire biliary tree. The lower third of the main bile duct contained filling defect(s) thought to be a stone. Biliary sphincterotomy was made with a monofilament traction (standard) sphincterotome using ERBE electrocautery. There was no post-sphincterotomy bleeding. The biliary tree was swept with a 9 mm balloon starting at the bifurcation. Sludge was swept from the duct. Two stones were removed. No stones remained. Occlusion cholangiogram at the end of the procedure did not show any residual filling defects. Pancreatic duct was neither cannulated nor opacified. Impression: - A filling defect consistent with a stone was seen on the cholangiogram. - Choledocholithiasis was found. Complete removal was accomplished by biliary sphincterotomy and balloon extraction. - A biliary sphincterotomy was performed. - The biliary tree was swept. Recommendation: - Avoid aspirin and nonsteroidal anti-inflammatory medicines. - The patient will be observed post-procedure, until all discharge criteria are met. - Patient has a contact number available for emergencies. The signs and symptoms of potential delayed complications were discussed with the patient. Return to normal activities tomorrow. Written discharge instructions were provided to the patient. - Clear liquid diet for 1 day, then advance as tolerated to resume previous diet. - Continue present medications. - Observe patient's clinical course. - Telephone endoscopist if symptomatic today. - Refer to a surgeon as previously scheduled. - Return to GI clinic in 2 weeks. - Return to primary care physician. Solomon Kauffman MD Solomon Kauffman MD 10/04/2018 3:28:22 PM Electronically signed by Solomon Kauffman MD Number of Addenda: 0 Note Initiated On: 10/04/2018 1:34 PM Estimated Blood Loss: Estimated blood loss: none.
[2018-10-04] MEDS ORDERED: ONDANSETRON 4MG/2ML VIAL (J2405) IV PRN (16:00)
[2018-10-04] MEDS ORDERED: LR 1,000 ML IV SCH (16:00)
[2018-10-04] MEDS ORDERED: LACTATED RINGER'S 1000 ML IV ONE (16:00)
[2018-10-04] MEDS ORDERED: PERCOCET 5MG/325MG TAB PO PRN (16:00)
[2018-10-04] MEDS ORDERED: fentaNYL 100 MCG/2 ML INJECTION (J3010) IV PRN (16:00)
[2018-10-04] MEDS ORDERED: HYDROMORPHONE HCL 0.5 MG/ 0.5 ML SYRINGE (J1170 PER 1) IV PRN (16:00)
--- NOTE | 2018-10-04 16:58 | REP ---
ERCP: 41 views. History: Endoscopic retrograde cholangiogram. 1 minute 15 seconds of fluoroscopy time is reported. Findings: A sequence of 41 last image hold fluoroscopically obtained spot radiographs of the right upper quadrant document common bile duct cannulation, contrast injection, balloon catheter manipulation. Electronically Signed by Petr Almaguer MD 10/04/2018 06:49 P
[2018-10-04 17:25] VITALS: BP 146/73
[2018-10-05] MEDS ORDERED: NEUR300C PO (04:58)
[2018-10-05] MEDS ORDERED: VITMTA PO (04:58)
[2018-10-05] MEDS ORDERED: METO25TA4 PO (04:58)
== END 2018-10-04 17:31 | disposition home or self-care (01) ==
LOC: M SDC 11:29
PROVIDERS: ATTEND Internal Medicine Gastroenterology
DX: K80.50 Calculus of bile duct without cholangitis or cholecystitis without obstruction (principal); R93.2 Abnormal findings on diagnostic imaging of liver and biliary tract; E11.9 Type 2 diabetes mellitus without complications; I10 Essential (primary) hypertension; Z79.84 Long term (current) use of oral hypoglycemic drugs; Z79.899 Other long term (current) drug therapy; K21.9 Gastro-esophageal reflux disease without esophagitis; Z88.7 Allergy status to serum and vaccine
CPT/HCPCS: 43262; 43264; 76000; C1887; J1885; J2250; J2370; J2405; J3010; Q9967

== ENCOUNTER 2018-10-04 23:22 | Inpatient (IN) | payer BC ==
[~2018-10-04] VITALS: Ht 162.6 cm; Wt 80.6 kg
[~2018-10-04 23:22] MED LIST changes: -NS 1,000 ML IV ONE
[2018-10-05] VITALS (16 sets, daily range): BP systolic 108–145; BP diastolic 62–86
[2018-10-05 00:16] LABS: BASO # 0.1 10^3/uL (0.0-0.2); BASO % 0.8 % (0.0-1.0); EOS % 0.1 % (0.0-3.0); HEMATOCRIT 45.1 % (36.0-47.0); HEMOGLOBIN 15.5 g/dl (12.0-15.5); LYMPH # 0.3 10^3/uL (1.5-4.5); LYMPH % 3.2 % (24.0-44.0); MEAN CORPUSCULAR HEMOGLOBIN 30.9 pg (27.0-33.0); MEAN CORPUSCULAR HGB CONC 34.4 g/dl (32.0-36.5); MONO # 0.1 10^3/uL (0.0-0.8); MONO % 1.3 % (0.0-5.0); NEUTROPHILS # 7.3 10^3/uL (1.8-7.7); PLATELET COUNT, AUTOMATED 173 10^3/uL (150-450); RED BLOOD COUNT 5.01 10^6/uL (4.00-5.40); WHITE BLOOD COUNT 7.8 10^3/uL (4.0-10.0)
[2018-10-05] MEDS ORDERED: ACETAMINOPHEN 325 MG TAB PO ONE (00:30)
[2018-10-05 00:38] LABS: ALBUMIN 3.2 GM/DL (3.2-5.2); BILIRUBIN,DIRECT 2.3 MG/DL (0.0-0.2); BILIRUBIN,TOTAL 2.8 MG/DL (0.2-1.0); CALCIUM LEVEL 9.1 MG/DL (8.5-10.1); CREATININE FOR GFR 1.03 MG/DL (0.55-1.30); POTASSIUM SERUM 3.5 MEQ/L (3.5-5.1); TOTAL PROTEIN 6.3 GM/DL (6.4-8.2)
[2018-10-05] MEDS ORDERED: ONDANSETRON 4MG/2ML VIAL (J2405) As Ordered ONE ×2 (00:43→16:53)
[2018-10-05] MEDS ORDERED: ONDANSETRON 4MG/2ML VIAL (J2405) IV ONE ×2 (00:45→17:00)
[2018-10-05] MEDS ORDERED: DILUENT IV ONE (01:00)
[2018-10-05] MEDS ORDERED: NS 1,000 ML IV ONE (01:00)
[2018-10-05] MEDS ORDERED: NS IV ONE (01:00)
[2018-10-05] MEDS ORDERED: ERTAPENEM SODIUM 1 GM in NS MINI-BAG PLUS 50 ML IV ONE (01:00)
[2018-10-05] MEDS ORDERED: ISOVUE-370 76% 100ML VIAL (Q9967) As Ordered ONE (01:13)
[2018-10-05] MEDS ORDERED: MORPHINE 4 MG/ML 1ML VIAL/SYRINGE (J2270) IV ONE (01:15)
--- NOTE | 2018-10-05 03:56 | REPVR ---
EXAM: CT Abdomen and Pelvis With Contrast EXAM DATE/TIME: 10/05/2018 1:26 AM CLINICAL HISTORY: 57 years old, female; Abdominal pain; Generalized; Additional Info: epigastric pain S/P ERCP TECHNIQUE: Imaging protocol: Axial computed tomography images of the abdomen and pelvis with intravenous contrast. Coronal and sagittal reformatted images were created and reviewed. Radiation optimization: All CT scans at this facility use at least one of these dose optimization techniques: automated exposure control; mA and/or kV adjustment per patient size (includes targeted exams where dose is matched to clinical indication); or iterative reconstruction. Contrast material: ISOVUE 370; Contrast volume: 100 ml; Contrast route: IV; COMPARISON: CT ABD PELVIS W/O FOL BY WIT 04/05/2017 8:06 AM FINDINGS: Mediastinum: Diffuse thickening of the distal esophagus. Liver: Hepatomegaly. Fatty infiltration of the liver. Gallbladder and bile ducts: Severe pneumobilia. No gallbladder wall thickening. Gas in the gallbladder. Small gallstones in the gallbladder. CBD measures 8 mm in diameter. Pancreas: Normal. No ductal dilation. Spleen: Normal. No splenomegaly. Adrenals: Normal. No mass. Kidneys and ureters: No right hydronephrosis. No masses. Status post left nephrectomy. Stomach and bowel: No abnormal bowel dilatation. Moderate stool in the colon. There are collapsed and thickened segments of colon involving the transverse colon and left colon. Negative for colonic diverticulitis. Appendix: Appendix is normal. Intraperitoneal space: Normal. No free air. No significant fluid collection. Vasculature: Mild atherosclerotic disease. No aortic aneurysm. Lymph nodes: Normal. No enlarged lymph nodes. Bladder: Unremarkable as visualized. Reproductive: Uterus is normal. Bones/joints: Moderate degenerative spine. No acute fracture. Soft tissues: Seroma in the deep subcutaneous tissue in the lower midline ventral abdominal wall measuring 1.5 x 4.5 x 6.8 cm. IMPRESSION: 1. There are collapsed and thickened segments of colon involving the transverse colon and left colon. Suspicious for colitis. 2. No bowel perforation. 3. Severe pneumobilia. Consistent with recent ERCP. 4. Cholelithiasis without cholecystitis. 5. Diffuse thickening of the distal esophagus. Suspicious for esophagitis. Unchanged from prior. 6. Seroma in the deep subcutaneous tissue in the lower midline ventral abdominal wall. Decreased from prior. 7. Additional findings as described. Electronically signed by: Uma De Luna On 10/05/2018 03:55:53 AM
[2018-10-05] MEDS ORDERED: DEXTROSE 50% 50 ML SYRINGE IV PRN (04:45)
[2018-10-05] MEDS ORDERED: GLUCAGON FOR INJ 1 MG VIAL (J1610) SC PRN (04:45)
[2018-10-05] MEDS ORDERED: GLUCOSE 4 GM CHEW TABLET PO PRN (04:45)
[2018-10-05] MEDS: NS 1,000 ML IV SCH ×3 (04:48→20:33)
--- NOTE | 2018-10-05 04:52 | HPEPDOC ---
General Date of Admission 10/05/18 Date of Service: Oct 05, 2018 Attending Physician: NAT PEREZ MD Chief Complaint The patient is a 57-year-old female admitted with a reason for visit of Abd Pain . Source: Patient Exam Limitations: No limitations Timing/Duration: Day(s) Severity: Severe Associated Symptoms: Fever, Malaise, Nausea, Vomiting History of Present Illness 57 years old white female who just had a ERCP done. Comes in by EMS with chief complaints of weakness, abdominal pain, nausea, vomiting and fever. Denies shortness of breath, chest pain, syncope or weakness of any extremity. Abdominal pain is epigastric in nature, sharp, nonradiating, associated with nausea, vomiting, present since yesterday after the ERCP, not relieved with any medication, but is progressively getting worse and spontaneously. Home Medications Scheduled Calcium Carbonate (Calcium) 600 Mg Tablet, 1,200 MG PO DAILY, (Reported) Cholecalciferol (Vitamin D3) (Vitamin D3) 5,000 Unit Capsule, 5,000 UNIT PO DAILY, (Reported) Gabapentin (Gabapentin) 400 Mg Capsule, 300 MG PO BID, (Reported) Metformin HCl (Metformin HCl) 500 Mg Tablet, 500 MG PO TID, (Reported) Metoprolol Succinate (Metoprolol Succinate) 200 Mg Tab, 25 MG PO BID, (Reported) Multivitamin with Minerals (Multiple Vitamin) 1 Each Tablet, 1 TAB PO DAILY, (Reported) Omeprazole (Omeprazole) 40 Mg Capsule.dr, 40 MG PO DAILY, (Reported) Psyllium Husk (Fiber) 0.52 Gm Capsule, 2 TBS PO DAILY, (Reported) Allergies Coded Allergies: tetanus immune globulin (Verified Adverse Reaction, Mild, redness, 10/04/18) Past Medical History Medical History Type 2 diabetes, gallstones status post ERCP Surgical History Unlikely a hernia repair 2. Start skipping 2, lithotripsy, kidney stone removal, left knee arthroplasty, nephrectomy, left side Family History Significant Family History: No pertinent family hx Social History * Smoker: Denies Alcohol: Denies Drugs: denies A-FIB/CHADSVASC A-FIB History Current/History of A-Fib/PAF?: No Review of Systems Constitutional: Reports: Chills, Fever, Malaise, Fatigue Eyes: Denies: Pain, Vision change, Conjunctivae inflammation, Eyelid inflammation, Redness, Other ENT: Denies: Head Aches, Ear Pain, Dysphagia, Sinus Congestion, Post Nasal Drip, Sore Throat, Epistaxis, Other Symptoms Skin: Denies: Rash, Lesions, Jaundice, Bruising, Itching, Dry, Breakdown, Nail Changes, Other Pulmonary: Denies: Dyspnea, Cough, Pleuritic Chest Pain, Other Symptoms Cardiovascular: Denies: Chest Pain, Palpitations, Orthopnea, Paroxysmal Noc. Dyspnea, Edema, Lt Headedness, Other Symptoms Gastrointestinal: Reports: Nausea, Vomiting, Abdominal Pain Genitourinary: Denies: Dysuria, Frequency, Incontinence, Hematuria, Retention, Other Symptoms Hematologic: Denies: Bruising, Bleeding Excessively, Petecchia, Purpura, Enlarged Lymph Nodes, Other Hematologic Endocrine: Denies: Polydipsia, Polyphagia, Polyuria, Heat Intolerance, Cold Intolerance, Other Endocrine Sx Musculoskeletal: Denies: Neck Pain, Back Pain, Shoulder Pain, Arm Pain, Hand Pain, Leg Pain, Foot Pain, Joint Pain, Muscle Pain, Spasms, Other Symptoms Neurological: Denies: Weakness, Numbness, Incoordination, Change in speech, Confusion, Seizures, Other Symptoms Psych: Denies: Mood Normal, Anxiety, Depression, Memory Issues, Thoughts of Self Harm, Anger, Thoughts of Harming Other, Other Psych Physical Examination General Exam: Positive: Alert, Cooperative Eye Exam: Positive: PERRLA, Conjunctiva & lids normal ENT Exam: Positive: Atraumatic, Mucous membr. moist/pink Neck Exam: Positive: Supple Chest Exam: Positive: Clear to auscultation, Normal air movement Heart Exam: Positive: Rate Normal, Normal S1, Normal S2 Abdomen Exam: Positive: BS Hypoactive, Soft, Tenderness (. Positive tenderness at the epigastric area and on the right upper quadrant) Extremity Exam: Positive: Normal pulses Skin Exam: Positive: Nl turgor and temperature Neuro Exam: Positive: Normal Speech, Strength at 5/5 X4 ext, Sensation Intact Psych Exam: Positive: Mental status NL, Oriented x 3 Vital Signs Vital Signs Date Time Temp Pulse Resp B/P (MAP) Pulse Ox O2 Delivery O2 Flow Rate FiO2 10/05/18 03:57 93 18 93/54 (67) 94 Nasal Cannula 2.0 10/05/18 02:18 100.3 Laboratory Data Labs 24H Laboratory Tests 2 10/05/18 00:05: Immature Granulocyte % (Auto) 0.6, White Blood Count 7.8, Red Blood Count 5.01, Hemoglobin 15.5, Hematocrit 45.1, Mean Corpuscular Volume 90.0, Mean Corpuscular Hemoglobin 30.9, Mean Corpuscular Hemoglobin Concent 34.4, Red Cell Distribution Width 11.9, Platelet Count 173, Neutrophils (%) (Auto) 94.0H, Lymphocytes (%) (Auto) 3.2L, Monocytes (%) (Auto) 1.3, Eosinophils (%) (Auto) 0.1, Basophils (%) (Auto) 0.8, Neutrophils # (Auto) 7.3, Lymphocytes # (Auto) 0.3L, Monocytes # (Auto) 0.1, Eosinophils # (Auto) 0.0, Basophils # (Auto) 0.1, Nucleated Red Blood Cells % (auto) 0.0, Anion Gap 13, Glomerular Filtration Rate 59.0, Calcium Level 9.1, Aspartate Amino Transf (AST/SGOT) 284H, Alanine Aminotransferase (ALT/SGPT) 254H, Alkaline Phosphatase 133H, Total Bilirubin 2.8H, Direct Bilirubin 2.3H, Total Protein 6.3L, Albumin 3.2, Albumin/Globulin Ratio 1.03, Lipase 490H 10/05/18 00:06: Lactic Acid Level 4.7*H 10/05/18 01:21: Urine Color STEPHANIE, Urine Appearance HAZY, Urine pH 5.0, Urine Specific [place] 1.012, Urine Protein NEGATIVE, Urine Glucose (UA) NEGATIVE, Urine Ketones NEGATIVE, Urine Blood 1+H, Urine Nitrite NEGATIVE, Urine Bilirubin NEGATIVE, Urine Urobilinogen 0.2, Urine Leukocyte Esterase NEGATIVE, Urine WBC (Auto) 3, Urine RBC (Auto) 2, Urine Hyaline Casts (Auto) 0, Urine Bacteria (Auto) 2+H, Urine Squamous Epithelial Cells 8, Urine Transitional Epithelial Cells <1, Urine Sperm (Auto) CBC/BMP Laboratory Tests 10/05/18 00:05 Red Blood Count 5.01, Mean Corpuscular Volume 90.0, Mean Corpuscular Hemoglobin 30.9, Mean Corpuscular Hemoglobin Concent 34.4, Red Cell Distribution Width 11.9, Neutrophils (%) (Auto) 94.0 H, Lymphocytes (%) (Auto) 3.2 L, Monocytes (%) (Auto) 1.3, Eosinophils (%) (Auto) 0.1, Basophils (%) (Auto) 0.8, Neutrophils # (Auto) 7.3, Lymphocytes # (Auto) 0.3 L, Monocytes # (Auto) 0.1, Eosinophils # (Auto) 0.0, Basophils # (Auto) 0.1 Microbiology Microbiology 10/05/18 Blood Culture, Received Pending 10/05/18 Blood Culture, Received Pending Problems (1) Pancreatitis Status: Acute Problem Text: Most likely procedure induced pancreatitis. His lipase was slightly high Nothing by mouth Pain management with morphine sulfate Zofran when necessary for nausea, vomiting IV fluid normal saline 150 mL per hour 6 AM laboratory work has been ordered Dr. Mock was called from ED and will see the patient today Nothing by mouth Activity as tolerated DVT prophylaxis with SCDs (2) Cholangitis Status: Acute Problem Text: As the possibility of cholangitis as the LFTs are slightly elevated including alkaline phosphatase Patient did receive Invanz in ED and I will continue the same Repeat level work including CBC, CMP 4 6 AM has been ordered Further recommendation as per GI Plan / VTE VTE Prophylaxis Ordered?: Yes NAT PEREZ MD Oct 05, 2018 04:51
[2018-10-05 04:57] LABS: HEMATOCRIT 39.5 % (36.0-47.0); MEAN CORPUSCULAR HEMOGLOBIN 30.7 pg (27.0-33.0); MEAN CORPUSCULAR HGB CONC 33.4 g/dl (32.0-36.5); MEAN CORPUSCULAR VOLUME 91.9 fl (80.0-96.0); PLATELET COUNT, AUTOMATED 176 10^3/uL (150-450); WHITE BLOOD COUNT 11.6 10^3/uL (4.0-10.0)
[2018-10-05] MEDS ORDERED: METO25TA4 PO (04:58)
[2018-10-05] MEDS ORDERED: VITMTA PO (04:58)
[2018-10-05] MEDS ORDERED: NEUR300C PO (04:58)
[2018-10-05 05:04] LABS: HEMOGLOBIN 13.2 g/dl (12.0-15.5)
[2018-10-05] MEDS ORDERED: NS 500 ML IV ONE (05:15)
[2018-10-05 05:19] LABS: ALBUMIN 2.6 GM/DL (3.2-5.2); BILIRUBIN,TOTAL 2.6 MG/DL (0.2-1.0); CALCIUM LEVEL 7.8 MG/DL (8.5-10.1); CREATININE FOR GFR 1.03 MG/DL (0.55-1.30); POTASSIUM SERUM 3.3 MEQ/L (3.5-5.1); TOTAL PROTEIN 5.6 GM/DL (6.4-8.2)
[2018-10-05] MEDS: MORPHINE 4 MG/ML 1ML VIAL/SYRINGE (J2270) IV PRN ×3 (05:42→21:22)
[2018-10-05] MEDS: HumaLOG INSULIN (NovoLOG) PER UNIT SC SCH ×4 (07:30→20:34)
[2018-10-05] MEDS ORDERED: NS 1,000 ML IV PRN (09:15)
[2018-10-05 09:29] LABS: BASO # 0.1 10^3/uL (0.0-0.2); BASO % 0.4 % (0.0-1.0); HEMATOCRIT 39.5 % (36.0-47.0); LYMPH # 0.9 10^3/uL (1.5-4.5); LYMPH % 7.1 % (24.0-44.0); MEAN CORPUSCULAR HEMOGLOBIN 31.2 pg (27.0-33.0); MEAN CORPUSCULAR HGB CONC 32.9 g/dl (32.0-36.5); MEAN CORPUSCULAR VOLUME 94.7 fl (80.0-96.0); MONO # 0.5 10^3/uL (0.0-0.8); MONO % 3.7 % (0.0-5.0); NEUTROPHILS # 10.9 10^3/uL (1.8-7.7); NEUTROPHILS % 88.2 % (36.0-66.0); PLATELET COUNT, AUTOMATED 169 10^3/uL (150-450); RED BLOOD COUNT 4.17 10^6/uL (4.00-5.40); WHITE BLOOD COUNT 12.4 10^3/uL (4.0-10.0)
[2018-10-05] MEDS: KCL 10MEQ/100ML SWI (KRUN) 10 MEQ in APPROPRIATE DILUENT 1 EA IV SCH ×2 (09:38→13:56)
[2018-10-05 09:54] LABS: ALBUMIN 2.6 GM/DL (3.2-5.2); ALT/SGPT 318 U/L (12-78); AMYLASE 52 U/L (25-115); BILIRUBIN,DIRECT 2.1 MG/DL (0.0-0.2); BILIRUBIN,TOTAL 2.4 MG/DL (0.2-1.0); BLOOD UREA NITROGEN 10 MG/DL (7-18); CREATININE FOR GFR 0.98 MG/DL (0.55-1.30); GLOMERULAR FILTRATION RATE > 60.0 (>51); LIPASE 423 U/L (73-393); TOTAL PROTEIN 5.1 GM/DL (6.4-8.2)
[2018-10-05] MEDS: ONDANSETRON 4MG/2ML VIAL (J2405) IV PRN ×2 (11:31→21:20)
[2018-10-05 11:38] LABS: APPEARANCE, URINE HAZY (CLEAR); BACTERIA, URINE AUTO 1+ (NEGATIVE); BILIRUBIN, URINE AUTO NEGATIVE (NEGATIVE); BLOOD, URINE BLOOD NEGATIVE (NEGATIVE); COLOR, URINE AMBER (YELLOW); GLUCOSE, URINE (UA) AUTO NEGATIVE (NEGATIVE); KETONE, URINE AUTO NEGATIVE (NEGATIVE); LEUKOCYTE ESTERASE, URINE AUTO NEGATIVE (NEGATIVE); MUCUS, URINE SMALL (NEGATIVE); NITRITE, URINE AUTO NEGATIVE (NEGATIVE); PROTEIN, URINE AUTO NEGATIVE (NEGATIVE); RBC, URINE AUTO 2 /HPF (0-3); SPECIFIC GRAVITY URINE AUTO 1.013 (1.002-1.035); SQUAMOUS EPITHELIAL CELL UR AU 8 /HPF (0-6); UROBILINOGEN, URINE AUTO 0.2 mg/dL (0.0-2.0); WBC, URINE AUTO 3 /HPF (0-3)
--- NOTE | 2018-10-05 13:42 | IPNPDOC ---
Text Note Date of Service The patient was seen on 10/05/18. NOTE S: patient transferred from [facility] to PCU because of hypotension, probable s epsis and gram neg vick bacteremia. Currently on ertepenem. She had ERCP yesterday. Currently patient states feels weak, increased abdomen pain and had MRCP performed (results pending). SHe has received 3-4 liter IVF for her blood pressure and currently on presentation to ICU overflow it is 136/80. patient states has gained 10 pounds in past 24 hours. states no CP, no SOB +flatus but no stool today. O: Vitals as below General: ill appearing, slightly diaphoretic, AAOx3 HRRR with soft murmur LCTA no W/R/R Ext: no edema Abdomen: RUQ and epigastric tenderness, + bowel sounds. guarding but no rigidity A/P: 1) Sepsis with cholangitis (doubt pancreatitis) GI consulted. case discussed with Dr Kauffman. MRCP pending and may need possible biduct stenting. BC + for GNR; on Ertepenem. Repeat BC tomorrow AM and when negative order PICC ID consulted serial lactic acid IVF - NS bolus for hypotension 2) elevated liver function test secondary to #1 3) Hypokalemia - IV replacement; tele 4) diabetes - not on custodial insulin, without hyperglycemia. - hold metformen. NPO. check BS and cover with SSI 5) HTN - metoprolol on hold due to hypotension. watch for rebound tachycardia. VS,Fishbone, I+O VS, Fishbone, I+O Laboratory Tests 10/05/18 00:05 Red Blood Count 5.01, Mean Corpuscular Volume 90.0, Mean Corpuscular Hemoglobin 30.9, Mean Corpuscular Hemoglobin Concent 34.4, Red Cell Distribution Width 11.9, Neutrophils (%) (Auto) 94.0 H, Lymphocytes (%) (Auto) 3.2 L, Monocytes (%) (Auto) 1.3, Eosinophils (%) (Auto) 0.1, Basophils (%) (Auto) 0.8, Neutrophils # (Auto) 7.3, Lymphocytes # (Auto) 0.3 L, Monocytes # (Auto) 0.1, Eosinophils # (Auto) 0.0, Basophils # (Auto) 0.1 10/05/18 04:46 Red Blood Count 4.30, Mean Corpuscular Volume 91.9, Mean Corpuscular Hemoglobin 30.7, Mean Corpuscular Hemoglobin Concent 33.4, Red Cell Distribution Width 12.0, Calcium Level 7.8 L, Aspartate Amino Transf (AST/SGOT) 272 H, Alanine Aminotransferase (ALT/SGPT) 260 H, Alkaline Phosphatase 94, Total Bilirubin 2.6 H, Total Protein 5.6 L, Albumin 2.6 L 10/05/18 08:44 Red Blood Count 4.17, Mean Corpuscular Volume 94.7, Mean Corpuscular Hemoglobin 31.2, Mean Corpuscular Hemoglobin Concent 32.9, Red Cell Distribution Width 12.2, Neutrophils (%) (Auto) 88.2 H, Lymphocytes (%) (Auto) 7.1 L, Monocytes (%) (Auto) 3.7, Eosinophils (%) (Auto) 0.0, Basophils (%) (Auto) 0.4, Neutrophils # (Auto) 10.9 H, Lymphocytes # (Auto) 0.9 L, Monocytes # (Auto) 0.5, Eosinophils # (Auto) 0.0, Basophils # (Auto) 0.1 Vital Signs Date Time Temp Pulse Resp B/P (MAP) Pulse Ox O2 Delivery O2 Flow Rate FiO2 10/05/18 07:45 97.4 83 17 108/64 (79) 98 2.0 10/05/18 07:15 Room Air I&O- Last 24 Hours up to 6 AM 10/05/18 06:00 Intake Total 3040 ml Balance 3040 ml ABHAY PADRON DO Oct 05, 2018 11:20
[2018-10-05 13:57] LABS: BASO % 0.3 % (0.0-1.0); EOS % 0.2 % (0.0-3.0); HEMATOCRIT 39.6 % (36.0-47.0); LYMPH # 1.3 10^3/uL (1.5-4.5); LYMPH % 11.1 % (24.0-44.0); MEAN CORPUSCULAR HEMOGLOBIN 29.8 pg (27.0-33.0); MEAN CORPUSCULAR HGB CONC 32.8 g/dl (32.0-36.5); MEAN CORPUSCULAR VOLUME 90.8 fl (80.0-96.0); MONO # 0.6 10^3/uL (0.0-0.8); NEUTROPHILS # 9.7 10^3/uL (1.8-7.7); PLATELET COUNT, AUTOMATED 176 10^3/uL (150-450); RED BLOOD COUNT 4.36 10^6/uL (4.00-5.40); WHITE BLOOD COUNT 11.7 10^3/uL (4.0-10.0)
--- NOTE | 2018-10-05 14:18 | REP ---
MRCP: MRCP exam is accomplished utilizing multiple heavily T2-weighted sequences in the axial and coronal planes with MIP reconstruction images. Comparison is made with a prior study 09/14/[address] 10/05/2018. Liver again noted to be enlarged. There is diffuse periportal edema. There is mild intrahepatic biliary dilatation centrally. The common bile duct is mildly dilated at 9 mm. This has slightly increased in diameter compared to the prior MRCP exam. Distally in the common bile duct, there is vague hypointensity, which may represent sludge. There is a suggestion of a possible 5-6 mm calculus in the distal common. Pancreatic duct is not dilated. Gallbladder demonstrates multiple subcentimeter stones. The gallbladder is significantly distended and there is diffuse gallbladder wall edema. There is a tiny amount of perihepatic fluid. IMPRESSION: Distended gallbladder increased in size since the prior study with diffuse gallbladder wall edema. Multiple small subcentimeter stones in the gallbladder. I cannot exclude cholecystitis. Mild intrahepatic and extrahepatic biliary dilatation, common bile duct measures 9 mm maximally and has increased in diameter compared to the prior MRCP exam. Possible small amount of sludge and possible 5-6 mm stone in the distal common bile duct. No pancreatic duct dilation. Tiny amount of perihepatic fluid. Diffuse periportal edema with hepatomegaly. Electronically Signed by Michael Raymundo MD 10/08/2018 07:16 P
[2018-10-05 14:26] LABS: ALBUMIN 2.7 GM/DL (3.2-5.2); BILIRUBIN,DIRECT 2.5 MG/DL (0.0-0.2); BILIRUBIN,TOTAL 2.9 MG/DL (0.2-1.0); TOTAL PROTEIN 5.5 GM/DL (6.4-8.2)
--- NOTE | 2018-10-05 14:48 | CR.PDOC ---
General Date of Consultation: Oct 05, 2018 Referring Provider: NAT PEREZ MD Attending Physician: MIAN HOUSTON MD Consultation Primary physician/ hospitalist: Dr. Perez. Reason for consult: suspected cholangitis. HPI: 57-year-old female patient with HTN, DM type 2 ( Last Hba1c 10.8 in Nov 2017), left side nephrectomy for chronic renal stones and infection, multiple ventral abdominal surgeries ( for hernia x 3) , NAFLD with hepatomegaly, underwent ERCP for CBD stone removal on 10/04/2018, presented to ER for acute worsening epigastric abdominal pain with nausea and vomiting and fever, which started around 7 PM yesterday. Patient reports the symptoms were getting worse, so she presented to ER. Patient was noted to have documented fever with tachycardia and borderline blood pressure with slightly elevated bilirubin with transaminitis. Patient since in [facility], was started on antibiotics, as needed pain medication, and is continued to have abdominal pain, with nausea, fever improved. Patient is AAO x 3. Patient also reported dark urine. Denies flank pain, cough or chest pain. Patient able to pass gas but last bowel movement was yesterday morning. Pertinent negative GI symptoms: Patient denies hematemesis, melena or hematochezia. Review of Systems: GI: as stated above CVS: No chest pain, No palpitations, No leg swelling. RS: No Shortness of breath, No Wheezing, no cough GLUING CREW LEADER: No dizziness, No motor weakness, No sensory problems Hematology: No bruising, No gum bleeding, Musculoskeletal: No joint pain, ambulating well. Skin: No rash : Dark urine without burning sensation ENT: No ear discharge/ pain, No dysphagia. Eyes: No photophobia. Home medications: reviewed. Antithrombotic agents - None Medical h/o: As above. Surgical h/o: None on abdomen. Social h/o: Alcohol- Social , tobacco- Denies , IVDA/ drugs- None . Family h/o of GI cancers -noncontributory Prior Endoscopies: --- EGD and Colonoscopy - in 08/25/2018 -- in [facility] by tn -- Regular Z line, moderate gastritis, normal duodenum. 1 duodenal diverticulum. Biopsies negative for H. pylori, celiac disease. Colonoscopy showed 8 mm tubular adenoma polyp at IC valve, for small hyperplastic polyps in rectosigmoid, severe diverticulosis (sigmoid to transverse colon), and hemorrhoids. Prior GI evaluation: Follows with me in GI clinic. Exam: Vitals: reviewed General: Alert and oriented x 3, not in distress HEENT: NO pallor, no icterus. Normal oropharynx, NO cervical lymph nodes. Chest: symmetric with bilateral clear air entry, CVS: S1, S2 heard, normal, no murmurs . Abdomen: non-distended, prior surgical scars, soft, epigastric and right upper quadrant tenderness, no palpable masses, sluggish bowel sounds heard. Rectal exam: Patient refused / Deferred at this time in view of scheduled colonoscopy. Extremities: no pedal edema, pulses palpable. GLUING CREW LEADER: no focal motor or sensory deficits. Moves all extremities Skin: no rash. Labs: reviewed. Imaging tests: reviewed with radiologist. 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 - Esophageal wall thickening - present in past CT scan as well -- likely from reflux disease. Recommendations: - Patient educated about the test results, possible differential diagnoses and All questions answered. - IV antibiotics for suspected Cholangitis, - NPO and IV hydration -- give adequate hydration and monitor for Intake and out put strictly. - Trend of labs and urgent MRCP to evaluate the CBD further. - Based on the MRCP and Clinical course will schedule for another ERCP. - The procedure, indications, risks (bleeding, perforation, infection, hypotension, respiratory depression, allergy, need for endotracheal intubation, surgery, colostomy, cardiac arrest, even ), benefits, limitations (e.g., missing a lesion), and all other alternatives (including no intervention) were explained to the patient who understood and agreed for the procedure. Addendum: -- MRCP results and follow up liver panel and CBC are reviewed. ID is consulted by primary team for antibiotic management. -- In view of the worsening bilirubin and MRCP results, discussed with patient about the need for repeat ERCP with CBD stent placement. Patient is educated about the indications, risks, benefits and alternatives(including no procedure). All questions answered. Patient is scheduled for urgent repeat ERCP today. -- Follow up procedure note for post-procedure recommendations. Plan of care discussed with patient and primary team. Patient verbalized understanding and agreed with the plan. Laboratory Data CBC/BMP Laboratory Tests 10/05/18 00:05 Red Blood Count 5.01, Mean Corpuscular Volume 90.0, Mean Corpuscular Hemoglobin 30.9, Mean Corpuscular Hemoglobin Concent 34.4, Red Cell Distribution Width 11.9, Neutrophils (%) (Auto) 94.0 H, Lymphocytes (%) (Auto) 3.2 L, Monocytes (%) (Auto) 1.3, Eosinophils (%) (Auto) 0.1, Basophils (%) (Auto) 0.8, Neutrophils # (Auto) 7.3, Lymphocytes # (Auto) 0.3 L, Monocytes # (Auto) 0.1, Eosinophils # (Auto) 0.0, Basophils # (Auto) 0.1 10/05/18 04:46 Red Blood Count 4.30, Mean Corpuscular Volume 91.9, Mean Corpuscular Hemoglobin 30.7, Mean Corpuscular Hemoglobin Concent 33.4, Red Cell Distribution Width 12.0, Calcium Level 7.8 L, Aspartate Amino Transf (AST/SGOT) 272 H, Alanine Aminotransferase (ALT/SGPT) 260 H, Alkaline Phosphatase 94, Total Bilirubin 2.6 H, Total Protein 5.6 L, Albumin 2.6 L 10/05/18 08:44 Red Blood Count 4.17, Mean Corpuscular Volume 94.7, Mean Corpuscular Hemoglobin 31.2, Mean Corpuscular Hemoglobin Concent 32.9, Red Cell Distribution Width 12.2, Neutrophils (%) (Auto) 88.2 H, Lymphocytes (%) (Auto) 7.1 L, Monocytes (%) (Auto) 3.7, Eosinophils (%) (Auto) 0.0, Basophils (%) (Auto) 0.4, Neutrophils # (Auto) 10.9 H, Lymphocytes # (Auto) 0.9 L, Monocytes # (Auto) 0.5, Eosinophils # (Auto) 0.0, Basophils # (Auto) 0.1 10/05/18 13:43 Red Blood Count 4.36, Mean Corpuscular Volume 90.8, Mean Corpuscular Hemoglobin 29.8, Mean Corpuscular Hemoglobin Concent 32.8, Red Cell Distribution Width 12.4, Neutrophils (%) (Auto) 83.0 H, Lymphocytes (%) (Auto) 11.1 L, Monocytes (%) (Auto) 5.0, Eosinophils (%) (Auto) 0.2, Basophils (%) (Auto) 0.3, Neutrophils # (Auto) 9.7 H, Lymphocytes # (Auto) 1.3 L, Monocytes # (Auto) 0.6, Eosinophils # (Auto) 0.0, Basophils # (Auto) 0.0 Allergies Coded Allergies: tetanus immune globulin (Verified Adverse Reaction, Mild, redness, 10/04/18) Home Medications Scheduled Calcium Carbonate (Calcium) 600 Mg Tablet, 1,200 MG PO DAILY, (Reported) Cholecalciferol (Vitamin D3) (Vitamin D3) 5,000 Unit Capsule, 5,000 UNIT PO DAILY, (Reported) Gabapentin (Neurontin) 300 Mg Capsule, 300 MG PO BID, (Reported) Metformin HCl (Metformin HCl) 500 Mg Tablet, 500 MG PO TID, (Reported) ON HOLD UNTIL TUESDAY BECAUSE OF CONTRAST DYE Metoprolol Tartrate (Metoprolol Tartrate) 25 Mg Tablet, 25 MG PO BID, (Reported) Multivitamins (Thera M Plus Tablet) 1 Each Tablet, 1 TAB PO DAILY, (Reported) Omeprazole (Omeprazole) 40 Mg Capsule., 40 MG PO DAILY, (Reported) MIAN HOUSTON MD Oct 05, 2018 14:48
[2018-10-05] MEDS ORDERED: ISOVUE-300 61% 50ML VIAL (Q9967) As Ordered ONE (16:52)
[2018-10-05] MEDS ORDERED: PROPOFOL 200 MG/20 ML VIAL As Ordered ONE (16:53)
[2018-10-05] MEDS ORDERED: LIDOCAINE 2% INJ 100 MG/5 ML SDV (FOR ANES.) As Ordered ONE (16:54)
[2018-10-05] MEDS ORDERED: dexameTHASONE 4 MG/ML 1ML VIAL (J1100) As Ordered ONE (16:54)
[2018-10-05] MEDS ORDERED: ROCURONIUM BROMIDE 50 MG/5 ML VIAL As Ordered ONE (16:54)
[2018-10-05] MEDS ORDERED: fentaNYL 100 MCG/2 ML INJECTION (J3010) As Ordered ONE (16:55)
[2018-10-05] MEDS ORDERED: MIDAZOLAM INJ 2 MG/2 ML VIAL (J2250) As Ordered ONE (16:55)
[2018-10-05] MEDS ORDERED: METOCLOPRAMIDE INJ 10MG/2ML VIAL (J2765) As Ordered ONE (17:00)
--- NOTE | 2018-10-05 18:24 | ROOR ---
Patient Name: Malu Lerma Procedure Date: 10/05/2018 5:02 PM Date of : 1960 Age: 57 Room: Main OR Gender: Female Note Status: Finalized Procedure: ERCP Indications: Suspected ascending cholangitis Providers: Solomon Kauffman MD Referring MD: Lashell Jiménez Do Requesting Provider: Medicines: General Anesthesia Complications: No immediate complications. Procedure: Pre-Anesthesia Assessment: - Prior to the procedure, a History and Physical was performed, and patient medications and allergies were reviewed. The patient is competent. The risks and benefits of the procedure and the sedation options and risks were discussed with the patient. All questions were answered and informed consent was obtained. Patient identification and proposed procedure were verified by the physician, the nurse and the anesthesiologist in the procedure room. Mental Status Examination: alert and oriented. Airway Examination: normal oropharyngeal airway and neck mobility. Respiratory Examination: clear to auscultation. CV Examination: normal. Prophylactic Antibiotics: The patient does not require prophylactic antibiotics. Prior Anticoagulants: The patient has taken no previous anticoagulant or antiplatelet agents. ASA Grade Assessment: III - A patient with severe systemic disease. After reviewing the risks and benefits, the patient was deemed in satisfactory condition to undergo the procedure. The anesthesia plan was to use general anesthesia. Immediately prior to administration of medications, the patient was re-assessed for adequacy to receive sedatives. The heart rate, respiratory rate, oxygen saturations, blood pressure, adequacy of pulmonary ventilation, and response to care were monitored throughout the procedure. The physical status of the patient was re-assessed after the procedure. The Duodenoscope was introduced through the mouth, and advanced to the duodenum and used to inject contrast into the bile duct. The ERCP was accomplished without difficulty. The patient tolerated the procedure well. Findings: The freight booker film was normal. The scope was advanced to a normal major papilla in the descending duodenum. Examination of the pharynx, larynx and associated structures, and upper GI tract was normal. Pus was emerging from the major papilla. A biliary sphincterotomy had been performed. The sphincterotomy appeared open. A 0.035 inch x 260 cm straight Hydra Jagwire was passed into the biliary tree. The short-nosed traction sphincterotome was passed over the guidewire and the bile duct was then deeply cannulated. Contrast was injected. I personally interpreted the bile duct images. Ductal flow of contrast was adequate. Image quality was adequate. Contrast extended to the main bile duct. The main bile duct was diffusely dilated. The largest diameter was 9 mm. One 10 Fr by 7 cm plastic stent with a single external flap and a single internal flap was placed into the common bile duct. Bile and pus flowed through the stent. The stent was in good position. Impression: - Pus was seen in the major papilla. - Prior biliary sphincterotomy appeared open. - The entire main bile duct was dilated. - One plastic stent was placed into the common bile duct. Recommendation: - The patient will be observed post-procedure, until all discharge criteria are met. - Return patient to ICU for ongoing care. - Clear liquid diet for 1 day, then advance as tolerated to full liquid diet. - Use broad spectrum antibiotics for now and follow ID recommendations for adjusting antibiotics and complete entire course.. - Repeat ERCP in 6 weeks to remove stent. - Return to GI clinic in 2 weeks. - Refer to a surgeon as previously scheduled. - Return to primary care physician. Solomon Kauffman MD Solomon Kauffman MD 10/05/2018 6:24:08 PM Electronically signed by Solomon Kauffman MD Number of Addenda: 0 Note Initiated On: 10/05/2018 5:02 PM Estimated Blood Loss: Estimated blood loss: none.
[2018-10-05] MEDS ORDERED: PHENYLephrine HCL 500 MCG/5 ML (100MCG/ML) SYRINGE (J2370) As Ordered ONE (18:26)
[2018-10-05] MEDS ORDERED: fentaNYL 100 MCG/2 ML INJECTION (J3010) IV PRN (18:30)
[2018-10-05] MEDS ORDERED: ONDANSETRON 4MG/2ML VIAL (J2405) IV PRN (18:30)
[2018-10-05] MEDS ORDERED: MORPHINE 10 MG/ML 1ML VIAL (J2270) IV PRN (18:30)
[2018-10-05] MEDS ORDERED: LR 1,000 ML IV SCH (18:30)
--- NOTE | 2018-10-05 18:31 | REP ---
ERCP: 19 views. History: Common bile duct stones versus blood clot versus cholangitis or pancreatitis. 16 seconds of fluoroscopy time is reported. Comparison is made with ERCP images from October 04, 2018. Findings: A sequence of 19 last image hold fluoroscopically obtained spot radiographs of the right upper quadrant document endoscopic cannulation, contrast injection, and stent placement. Electronically Signed by Petr Almaguer MD 10/05/2018 07:28 P
[2018-10-05] MEDS ORDERED: FLEET ENEMA PR ONE (20:00)
[2018-10-05] MEDS ORDERED: MIRALAX *UNIT DOSE* 17GM PACKET PO PRN (20:30)
[2018-10-05] MEDS: MEROPENEM INJ 2 GM in NS 100 ML IV SCH (20:33)
[2018-10-05 22:22] LABS: BASO % 0.2 % (0.0-1.0); HEMATOCRIT 41.2 % (36.0-47.0); HEMOGLOBIN 13.5 g/dl (12.0-15.5); LYMPH # 0.5 10^3/uL (1.5-4.5); LYMPH % 4.5 % (24.0-44.0); MEAN CORPUSCULAR HEMOGLOBIN 30.8 pg (27.0-33.0); MEAN CORPUSCULAR HGB CONC 32.8 g/dl (32.0-36.5); MEAN CORPUSCULAR VOLUME 93.8 fl (80.0-96.0); MONO # 0.2 10^3/uL (0.0-0.8); NEUTROPHILS # 9.5 10^3/uL (1.8-7.7); NEUTROPHILS % 92.8 % (36.0-66.0); PLATELET COUNT, AUTOMATED 164 10^3/uL (150-450); RED BLOOD COUNT 4.39 10^6/uL (4.00-5.40); WHITE BLOOD COUNT 10.3 10^3/uL (4.0-10.0)
[2018-10-05 22:50] LABS: ALBUMIN 2.8 GM/DL (3.2-5.2); BILIRUBIN,TOTAL 3.8 MG/DL (0.2-1.0); TOTAL PROTEIN 6.3 GM/DL (6.4-8.2)
--- NOTE | 2018-10-05 23:16 | CR ---
DATE OF CONSULTATION: 10/05/2018 REFERRING PHYSICIAN: Hospitalist service. REASON FOR CONSULTATION: For evaluation of cholangitis and gram negative sepsis. 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 The patient started with abdominal pain for the past couple of months but it was intermittent and had progressively gotten worse. She had an ERCP done on 10/04 for common bile duct stone removal and then presented to emergency room for acute worsening of epigastric abdominal pain, nausea and vomiting and hypotension. The patient was noted to have elevated bilirubin with transaminitis. She was started on IV Invanz and is going back to the operating room with Dr. Kauffman for another ERCP. She is alert and oriented. She complains of dry mouth, dark urine. Denies flank pain, cough, shortness of breath. No chest pain. PAST MEDICAL HISTORY: Significant for hypertension, type 2 diabetes, HbA1c of 10.8, poorly controlled, left-sided nephrectomy for chronic renal stones, multiple ventral abdominal hernia surgeries times three, non-alcoholic fatty liver disease (NAFLD) with hepatomegaly and gallstones. PAST SURGICAL HISTORY Multiple ventral abdominal surgeries, nephrectomy for kidney stones. SOCIAL HISTORY Denies alcohol or drug use. History of social alcohol. She is . Her is at the bedside. LABORATORY DATA White count was 11.7, hemoglobin 13, hematocrit 39.6, platelets 176, 83% neutrophils, 11% lymphocytes, 5% monocytes. Sodium 141, potassium 3.3, chloride 109, bicarb 26, BUN 11, creatinine 1.03, glucose 177, calcium 7.8, total bilirubin 2.6, AST 272, ALT 260, alkaline phosphatase 94, albumin 2.6, lactic acid was 4.7, on 10/05 down to 3. Blood cultures two sets are growing gram negative rods. Urine culture is pending. IMAGING STUDIES: Abdominal MRI shows normal pancreas, liver with hepatomegaly and fatty infiltration, severe pneumobilia, no gallbladder wall thickening. Small gallstones in the gallbladder and the common bile duct measuring 8 mm in diameter, cholelithiasis without cholecystitis. Diffuse thickening of the distal esophagus, suspicious for esophagitis. PHYSICAL EXAMINATION: On physical exam she is a sick looking female in mild discomfort. Temperature was 102.6 at 11 last night. Currently 98.3, pulse 92, respirations 20, blood pressure 137/82, O2 sat 98% on room air. Heart: Normal S1, S2. No murmurs, rubs or gallops. Lungs are clear. No wheezes, rales or rhonchi. Abdomen: Diffusely tender. No guarding. Back: No CVA tenderness. Extremities: No edema. Oropharynx dry. Mild scleral icterus. IMPRESSION This is a 57-year-old female with known history of gallstones, progressive abdominal pain over the past couple months, had ERCP yesterday admitted with worsening abdominal pain and sepsis. She has gram-negative bacteremia. The patient had worsening symptoms after ERCP and sphincterotomy with imaging also suggestive of chronic calcific pancreatitis. The patient going back for another ERCP to rule out another CBD stone versus a clot versus cholangitis or pancreatitis as a complication of ERCP done yesterday. PLAN The patient is on IV ertapenem 1 gram daily which is appropriate coverage for gram-negative sepsis and gallbladder disease. That should cover gram negatives and anaerobes. Continue with current antibiotic. Will follow up once blood cultures are available. Dr. [facility] MEDICATIONS Invanz 1 gram IV every 24 daily, sliding scale insulin, Zofran as needed ALLERGIES: TETANUS IMMUNOGLOBULIN. Thank you for the consultation.
[2018-10-06] MEDS: NS 1,000 ML IV SCH ×3 (02:00→20:45)
[2018-10-06] MEDS ORDERED: ERTAPENEM SODIUM 1 GM in NS MINI-BAG PLUS 50 ML IV SCH (04:00)
[2018-10-06] MEDS: MEROPENEM INJ 2 GM in NS 100 ML IV SCH (04:00)
[2018-10-06 05:26] LABS: HEMATOCRIT 39.2 % (36.0-47.0); HEMOGLOBIN 12.7 g/dl (12.0-15.5); MEAN CORPUSCULAR HEMOGLOBIN 29.9 pg (27.0-33.0); MEAN CORPUSCULAR HGB CONC 32.4 g/dl (32.0-36.5); MEAN CORPUSCULAR VOLUME 92.2 fl (80.0-96.0); PLATELET COUNT, AUTOMATED 163 10^3/uL (150-450); RED BLOOD COUNT 4.25 10^6/uL (4.00-5.40); WHITE BLOOD COUNT 9.9 10^3/uL (4.0-10.0)
[2018-10-06 05:56] LABS: ALBUMIN 2.6 GM/DL (3.2-5.2); ALT/SGPT 377 U/L (12-78); BILIRUBIN,TOTAL 3.5 MG/DL (0.2-1.0); BLOOD UREA NITROGEN 9 MG/DL (7-18); CALCIUM LEVEL 8.2 MG/DL (8.5-10.1); CARBON DIOXIDE LEVEL 21 MEQ/L (21-32); CHLORIDE LEVEL 109 MEQ/L (98-107); CREATININE FOR GFR 0.73 MG/DL (0.55-1.30); GLOMERULAR FILTRATION RATE > 60.0 (>51); GLUCOSE, FASTING 221 MG/DL (70-100); MAGNESIUM LEVEL 1.8 MG/DL (1.8-2.4); POTASSIUM SERUM 4.3 MEQ/L (3.5-5.1); SODIUM LEVEL 140 MEQ/L (136-145); TOTAL PROTEIN 5.9 GM/DL (6.4-8.2)
[2018-10-06 08:00] VITALS: BP 133/62
--- NOTE | 2018-10-06 08:05 | IPNPDOC ---
Date Seen The patient was seen on 10/06/18. Progress Note Interval History: Patient underwent ERCP with CBD stent placement yesterday. Tolerated procedure well. Patient is noted with improvement in WBC, no further fever. Patient also reported improvement in abdominal pain. Patient is advanced on diet. Patient still reports mild epigastric pain. Exam: Vitals: afebrile, No tachycardiac. No tachypnea. Abdomen: Soft, Mild tenderness, improved from past. Chest: Bilateral clear air entry, Normal S1 and S2 Labs: Reviewed. Persistent elevated Transaminitis and Bilirubin levels. WBC normalized. Impression: -- Acute cholangitis with gram Negative bacteremia s/p ERCP with CBD stent placement. -- Abnormal liver tests -- could be from prior Cholangitis. Needs further evaluation. Recommendations: -- Clear liquid diet to be advanced to regular diabetic diet as tolerated. -- Serial Liver panel and CBC, to evaluate for clinical response. -- Continue IV antibiotics for now as per ID recommendations. -- Obtain US abdomen tomorrow to evaluate for gall bladder and Liver morphology, biliary tree.. -- IV hydration discontinued as tolerating oral diet. -- Strict monitoring of Intake and output. -- Follow blood culture results and update antibiotics based on culture results. -- will review with surgery after US abdomen depending on clinical course.. Plan of care discussed with patient and primary team. Patient verbalized understanding. VS, I&O, 24H, Fishbone Laboratory Data CBC/BMP Laboratory Tests 10/05/18 08:44 Red Blood Count 4.17, Mean Corpuscular Volume 94.7, Mean Corpuscular Hemoglobin 31.2, Mean Corpuscular Hemoglobin Concent 32.9, Red Cell Distribution Width 12.2, Neutrophils (%) (Auto) 88.2 H, Lymphocytes (%) (Auto) 7.1 L, Monocytes (%) (Auto) 3.7, Eosinophils (%) (Auto) 0.0, Basophils (%) (Auto) 0.4, Neutrophils # (Auto) 10.9 H, Lymphocytes # (Auto) 0.9 L, Monocytes # (Auto) 0.5, Eosinophils # (Auto) 0.0, Basophils # (Auto) 0.1 10/05/18 13:43 Red Blood Count 4.36, Mean Corpuscular Volume 90.8, Mean Corpuscular Hemoglobin 29.8, Mean Corpuscular Hemoglobin Concent 32.8, Red Cell Distribution Width 12.4, Neutrophils (%) (Auto) 83.0 H, Lymphocytes (%) (Auto) 11.1 L, Monocytes (%) (Auto) 5.0, Eosinophils (%) (Auto) 0.2, Basophils (%) (Auto) 0.3, Neutrop hils # (Auto) 9.7 H, Lymphocytes # (Auto) 1.3 L, Monocytes # (Auto) 0.6, Eosinophils # (Auto) 0.0, Basophils # (Auto) 0.0 10/05/18 22:05 Red Blood Count 4.39, Mean Corpuscular Volume 93.8, Mean Corpuscular Hemoglobin 30.8, Mean Corpuscular Hemoglobin Concent 32.8, Red Cell Distribution Width 12.4, Neutrophils (%) (Auto) 92.8 H, Lymphocytes (%) (Auto) 4.5 L, Monocytes (%) (Auto) 2.0, Eosinophils (%) (Auto) 0.0, Basophils (%) (Auto) 0.2, Neutrophils # (Auto) 9.5 H, Lymphocytes # (Auto) 0.5 L, Monocytes # (Auto) 0.2, Eosinophils # (Auto) 0.0, Basophils # (Auto) 0.0 10/06/18 04:56 Red Blood Count 4.25, Mean Corpuscular Volume 92.2, Mean Corpuscular Hemoglobin 29.9, Mean Corpuscular Hemoglobin Concent 32.4, Red Cell Distribution Width 12.4, Calcium Level 8.2 L, Aspartate Amino Transf (AST/SGOT) 265 H, Alanine Aminotransferase (ALT/SGPT) 377 H, Alkaline Phosphatase 85, Total Bilirubin 3.5 H, Total Protein 5.9 L, Albumin 2.6 L Microbiology Microbiology 10/06/18 Blood Culture, Received Pending 10/05/18 Blood Culture - Preliminary, Resulted 10/05/18 Blood Culture - Preliminary, Resulted 10/05/18 Urine Culture, Received Pending MIAN HOUSTON MD Oct 06, 2018 08:05
--- NOTE | 2018-10-06 08:52 | IPNPDOC ---
Text Note Date of Service The patient was seen on 10/06/18. NOTE S: patient states feels better today. minimal sharp abdomen pain, intermittent. no fever. no nausea, no vomiting. complains of frontal MCRAE and GERD. She is tolerating clear liquids O: Vitals as below General: pleasant, NAD AAOx3 HRRR LCTA no W/R/R Abdomen soft, RUQ/Epigastric tenderness but no guarding, no rebound, no rigidity Ext no edema A/P: 1) Sepsis with cholangitis (not pancreatitis) GI consulted. Stent placed on 10/05/18 ID consulted - resume ertepenem q24h starting at 1200 no further hypotension episodes (Sepsis resolved) 2) gram neg vick bacteremia - repeat BC today pending. if negative, consider PICC line; continue ertepenem 3) elevated liver function test secondary to #1 4) diabetes - not on retirement insulin, without hyperglycemia. - hold metformen. NPO. check BS and cover with SSI 5) HTN - resume metoprolol. watch for rebound tachycardia. 6) Hypokalemia - resolved; will d/c tele VS,Fishbone, I+O VS, Fishbone, I+O Laboratory Tests 10/05/18 13:43 Red Blood Count 4.36, Mean Corpuscular Volume 90.8, Mean Corpuscular Hemoglobin 29.8, Mean Corpuscular Hemoglobin Concent 32.8, Red Cell Distribution Width 12.4, Neutrophils (%) (Auto) 83.0 H, Lymphocytes (%) (Auto) 11.1 L, Monocytes (%) (Auto) 5.0, Eosinophils (%) (Auto) 0.2, Basophils (%) (Auto) 0.3, Neutrophils # (Auto) 9.7 H, Lymphocytes # (Auto) 1.3 L, Monocytes # (Auto) 0.6, Eosinophils # (Auto) 0.0, Basophils # (Auto) 0.0 10/05/18 22:05 Red Blood Count 4.39, Mean Corpuscular Volume 93.8, Mean Corpuscular Hemoglobin 30.8, Mean Corpuscular Hemoglobin Concent 32.8, Red Cell Distribution Width 12.4, Neutrophils (%) (Auto) 92.8 H, Lymphocytes (%) (Auto) 4.5 L, Monocytes (%) (Auto) 2.0, Eosinophils (%) (Auto) 0.0, Basophils (%) (Auto) 0.2, Neutrophils # (Auto) 9.5 H, Lymphocytes # (Auto) 0.5 L, Monocytes # (Auto) 0.2, Eosinophils # (Auto) 0.0, Basophils # (Auto) 0.0 10/06/18 04:56 Red Blood Count 4.25, Mean Corpuscular Volume 92.2, Mean Corpuscular Hemoglobin 29.9, Mean Corpuscular Hemoglobin Concent 32.4, Red Cell Distribution Width 12.4, Calcium Level 8.2 L, Aspartate Amino Transf (AST/SGOT) 265 H, Alanine Aminotransferase (ALT/SGPT) 377 H, Alkaline Phosphatase 85, Total Bilirubin 3.5 H, Total Protein 5.9 L, Albumin 2.6 L Vital Signs Date Time Temp Pulse Resp B/P (MAP) Pulse Ox O2 Delivery O2 Flow Rate FiO2 10/06/18 08:00 97.0 80 18 133/62 (85) 95 1.0 10/05/18 07:15 Room Air I&O- Last 24 Hours up to 6 AM 10/06/18 05:59 Intake Total 2605 ml Output Total 2150 ml Balance 455 ml ABHAY PADRON DO Oct 06, 2018 08:52
[2018-10-06] MEDS: HumaLOG INSULIN (NovoLOG) PER UNIT SC SCH ×4 (09:28→20:43)
[2018-10-06] MEDS: METOPROLOL TART 25 MG TABLET PO SCH ×2 (09:29→20:45)
[2018-10-06] MEDS: OMEPRAZOLE 20 MG CAP PO SCH (09:29)
[2018-10-06] MEDS: KETOROLAC 30 MG/ML VIAL (J1885) IV PRN ×3 (10:21→22:52)
[2018-10-06] MEDS: ONDANSETRON 4MG/2ML VIAL (J2405) IV PRN (10:21)
[2018-10-06 12:00] VITALS: BP 147/77
[2018-10-06 12:00] LABS: BASO % 0.2 % (0.0-1.0); EOS % 0.2 % (0.0-3.0); HEMATOCRIT 38.6 % (36.0-47.0); HEMOGLOBIN 12.9 g/dl (12.0-15.5); LYMPH # 1.4 10^3/uL (1.5-4.5); LYMPH % 14.8 % (24.0-44.0); MEAN CORPUSCULAR HEMOGLOBIN 31.1 pg (27.0-33.0); MEAN CORPUSCULAR HGB CONC 33.4 g/dl (32.0-36.5); MONO # 0.5 10^3/uL (0.0-0.8); MONO % 5.6 % (0.0-5.0); NEUTROPHILS # 7.4 10^3/uL (1.8-7.7); NEUTROPHILS % 78.7 % (36.0-66.0); PLATELET COUNT, AUTOMATED 153 10^3/uL (150-450); RED BLOOD COUNT 4.15 10^6/uL (4.00-5.40); WHITE BLOOD COUNT 9.5 10^3/uL (4.0-10.0)
[2018-10-06 12:38] LABS: ALBUMIN 2.6 GM/DL (3.2-5.2); BILIRUBIN,DIRECT 1.8 MG/DL (0.0-0.2); BILIRUBIN,TOTAL 2.3 MG/DL (0.2-1.0)
[2018-10-06] MEDS: ERTAPENEM SODIUM 1 GM in NS MINI-BAG PLUS 50 ML IV SCH (13:14)
[2018-10-06 16:00] VITALS: BP 150/60
[2018-10-06 19:08] LABS: BASO % 0.3 % (0.0-1.0); EOS # 0.1 10^3/uL (0.0-0.50); EOS % 0.7 % (0.0-3.0); HEMATOCRIT 38.1 % (36.0-47.0); HEMOGLOBIN 12.5 g/dl (12.0-15.5); LYMPH # 1.4 10^3/uL (1.5-4.5); LYMPH % 19.4 % (24.0-44.0); MEAN CORPUSCULAR HEMOGLOBIN 30.6 pg (27.0-33.0); MEAN CORPUSCULAR HGB CONC 32.8 g/dl (32.0-36.5); MEAN CORPUSCULAR VOLUME 93.2 fl (80.0-96.0); MONO # 0.3 10^3/uL (0.0-0.8); MONO % 4.1 % (0.0-5.0); NEUTROPHILS # 5.4 10^3/uL (1.8-7.7); NEUTROPHILS % 75.1 % (36.0-66.0); PLATELET COUNT, AUTOMATED 158 10^3/uL (150-450); RED BLOOD COUNT 4.09 10^6/uL (4.00-5.40); WHITE BLOOD COUNT 7.2 10^3/uL (4.0-10.0)
[2018-10-06 19:33] LABS: ALBUMIN 2.6 GM/DL (3.2-5.2); BILIRUBIN,DIRECT 1.5 MG/DL (0.0-0.2); TOTAL PROTEIN 5.5 GM/DL (6.4-8.2)
[2018-10-06 20:00] VITALS: BP 136/85
[2018-10-06 23:59] VITALS: BP 134/81
[2018-10-07] VITALS (8 sets, daily range): BP systolic 142–176; BP diastolic 74–104
[2018-10-07] MEDS: METOPROLOL TART 25 MG TABLET PO SCH ×2 (08:09→20:47)
[2018-10-07] MEDS: OMEPRAZOLE 20 MG CAP PO SCH (08:09)
[2018-10-07] MEDS: HumaLOG INSULIN (NovoLOG) PER UNIT SC SCH ×4 (08:10→20:43)
[2018-10-07 08:54] LABS: HEMATOCRIT 41.7 % (36.0-47.0); HEMOGLOBIN 13.7 g/dl (12.0-15.5); MEAN CORPUSCULAR HGB CONC 32.9 g/dl (32.0-36.5); MEAN CORPUSCULAR VOLUME 91.2 fl (80.0-96.0); PLATELET COUNT, AUTOMATED 186 10^3/uL (150-450); RED BLOOD COUNT 4.57 10^6/uL (4.00-5.40); WHITE BLOOD COUNT 6.4 10^3/uL (4.0-10.0)
[2018-10-07 09:13] LABS: ALBUMIN 2.7 GM/DL (3.2-5.2); ALT/SGPT 395 U/L (12-78); BILIRUBIN,DIRECT 1.5 MG/DL (0.0-0.2); BILIRUBIN,TOTAL 2.2 MG/DL (0.2-1.0); BLOOD UREA NITROGEN 10 MG/DL (7-18); CALCIUM LEVEL 8.5 MG/DL (8.5-10.1); CARBON DIOXIDE LEVEL 25 MEQ/L (21-32); CHLORIDE LEVEL 108 MEQ/L (98-107); CREATININE FOR GFR 0.82 MG/DL (0.55-1.30); GLOMERULAR FILTRATION RATE > 60.0 (>51); GLUCOSE, FASTING 236 MG/DL (70-100); POTASSIUM SERUM 4.1 MEQ/L (3.5-5.1); SODIUM LEVEL 139 MEQ/L (136-145)
[2018-10-07] MEDS: ONDANSETRON 4MG/2ML VIAL (J2405) IV PRN (10:02)
[2018-10-07] MEDS ORDERED: POTASSIUM CHLORIDE 10 MEQ SR TABLET PO ONE (11:00)
[2018-10-07] MEDS ORDERED: FUROSEMIDE 20 MG/2 ML VIAL (J1940) IV ONE (11:00)
--- NOTE | 2018-10-07 11:51 | REP ---
RIGHT UPPER QUADRANT ULTRASOUND: Real-time sonographic evaluation of the right upper quadrant performed. Gallbladder is markedly distended. It contains small stones and sludge. There appears to be gallbladder wall edema with small amount of surrounding pericholecystic fluid. Air is seen throughout the biliary tree. Common bile duct measures 7 mm. Biliary stent in the common bile duct is not visualized. Liver demonstrates hepatomegaly with a length in the midclavicular line 24.1 cm. There is diffuse fatty infiltration of the liver. Pancreas is not well seen due to overlying bowel gas. Right kidney demonstrates no hydronephrosis with normal size 14.4 cm in length. The study is due to patient body habitus and bowel gas. IMPRESSION: Markedly distended gallbladder contains sludge and small stones. There is gallbladder wall edema with mild pericholecystic fluid. Air throughout the biliary tree. Common bile duct measures 7 mm. There is hepatomegaly with diffuse fatty infiltration of the liver. Electronically Signed by Michael Raymundo MD 10/08/2018 09:22 P
[2018-10-07] MEDS: ERTAPENEM SODIUM 1 GM in NS MINI-BAG PLUS 50 ML IV SCH (12:17)
[2018-10-07] MEDS: MORPHINE 4 MG/ML 1ML VIAL/SYRINGE (J2270) IV PRN (12:18)
--- NOTE | 2018-10-07 12:27 | IPNPDOC ---
Text Note Date of Service The patient was seen on 10/07/18. NOTE S; patient states had GB US done this morning and caused more pain. states does not want opioids only toradol for pain. notified that patient only has 1 functioning kidney. Patient states increased weight gain (2 pounds since admission) and 14 pounds over past month. States feels it is fluid retention from IVs and is requesting diuretic. no fever. no N, no Vomiting, No CP, no SOB. still with RUQ abd pain. O: Vitals as below HRRR with murmur LCTA no W/R/R Ext: no ankle edema, slight hand/finger edema (non pitting) Abdomen: RUQ tenderness, NABS.soft. A/P: 1) Sepsis with cholangitis (not pancreatitis) GI consulted. Stent placed on 10/05/18 ID consulted -on ertepenem q24h; cultures show klebsiella - consider changing to levaquin PICC line present no further hypotension episodes (Sepsis resolved) Advance diet as per GI recommendation 2)Klebsiella bacteremia due to GI/Gallbladder source - on continue ertepenem 3) elevated liver function test secondary to #1 4) diabetes - not on long term insulin, without hyperglycemia. - hold metformen. check BS and cover with SSI. advance diet per GI 5) HTN - resume metoprolol. add one time low dose lasix and monitor 6) Hypokalemia - resolved; will d/c tele VS,Fishbone, I+O VS, Fishbone, I+O Laboratory Tests 10/06/18 11:50 Red Blood Count 4.15, Mean Corpuscular Volume 93.0, Mean Corpuscular Hemoglobin 31.1, Mean Corpuscular Hemoglobin Concent 33.4, Red Cell Distribution Width 12.2, Neutrophils (%) (Auto) 78.7 H, Lymphocytes (%) (Auto) 14.8 L, Monocytes (%) (Auto) 5.6 H, Eosinophils (%) (Auto) 0.2, Basophils (%) (Auto) 0.2, Neutrophils # (Auto) 7.4, Lymphocytes # (Auto) 1.4 L, Monocytes # (Auto) 0.5, Eosinophils # (Auto) 0.0, Basophils # (Auto) 0.0 10/06/18 18:45 Red Blood Count 4.09, Mean Corpuscular Volume 93.2, Mean Corpuscular Hemoglobin 30.6, Mean Corpuscular Hemoglobin Concent 32.8, Red Cell Distribution Width 12.3, Neutrophils (%) (Auto) 75.1 H, Lymphocytes (%) (Auto) 19.4 L, Monocytes (%) (Auto) 4.1, Eosinophils (%) (Auto) 0.7, Basophils (%) (Auto) 0.3, Neutrophils # (Auto) 5.4, Lymphocytes # (Auto) 1.4 L, Monocytes # (Auto) 0.3, Eosinophils # (Auto) 0.1, Basophils # (Auto) 0.0 10/07/18 08:26 Red Blood Count 4.57, Mean Corpuscular Volume 91.2, Mean Corpuscular Hemoglobin 30.0, Mean Corpuscular Hemoglobin Concent 32.9, Red Cell Distribution Width 12.4 Vital Signs Date Time Temp Pulse Resp B/P (MAP) Pulse Ox O2 Delivery O2 Flow Rate FiO2 10/07/18 08:09 87 164/86 10/07/18 08:00 97.6 18 97 1.0 10/05/18 07:15 Room Air I&O- Last 24 Hours up to 6 AM 10/07/18 05:59 Intake Total 2750 ml Output Total 1800 ml Balance 950 ml ABHAY PADRON DO Oct 07, 2018 09:58
[2018-10-07] MEDS: **hydrALAZINE** 10 MG TAB PO PRN (17:54)
[2018-10-07] MEDS: GABAPENTIN 300 MG CAP PO SCH (20:47)
[2018-10-08] VITALS (7 sets, daily range): BP systolic 135–179; BP diastolic 80–91
[2018-10-08] MEDS: **hydrALAZINE** 10 MG TAB PO PRN ×3 (04:41→21:16)
[2018-10-08] MEDS: ONDANSETRON 4MG/2ML VIAL (J2405) IV PRN ×2 (05:58→11:41)
[2018-10-08] MEDS: HumaLOG INSULIN (NovoLOG) PER UNIT SC SCH ×4 (07:30→21:00)
[2018-10-08 08:28] LABS: ALBUMIN 2.6 GM/DL (3.2-5.2); ALT/SGPT 267 U/L (12-78); BILIRUBIN,DIRECT 0.9 MG/DL (0.0-0.2); BILIRUBIN,TOTAL 1.4 MG/DL (0.2-1.0); BLOOD UREA NITROGEN 9 MG/DL (7-18); CALCIUM LEVEL 8.3 MG/DL (8.5-10.1); CARBON DIOXIDE LEVEL 27 MEQ/L (21-32); CHLORIDE LEVEL 107 MEQ/L (98-107); CREATININE FOR GFR 0.63 MG/DL (0.55-1.30); GLOMERULAR FILTRATION RATE > 60.0 (>51); GLUCOSE, FASTING 191 MG/DL (70-100); POTASSIUM SERUM 3.8 MEQ/L (3.5-5.1); SODIUM LEVEL 141 MEQ/L (136-145); TOTAL PROTEIN 5.5 GM/DL (6.4-8.2)
[2018-10-08] MEDS: OMEPRAZOLE 20 MG CAP PO SCH (09:07)
[2018-10-08] MEDS: GABAPENTIN 300 MG CAP PO SCH ×2 (09:07→21:16)
[2018-10-08] MEDS: METOPROLOL TART 25 MG TABLET PO SCH ×2 (09:09→21:16)
[2018-10-08] MEDS: ERTAPENEM SODIUM 1 GM in NS MINI-BAG PLUS 50 ML IV SCH (11:31)
--- NOTE | 2018-10-08 13:13 | IPNPDOC ---
Text Note Date of Service The patient was seen on 10/08/18. NOTE S: patient states still with abdomen pain but controlled. Is NPO for possible cholecystectomy today. at bedside. no N, no V, no CP, no SOB O: Vitals as below General: pleasant, mild distress, AAOx3 HRRR with murmur LCTA no W/R/R (pateint using IS) Ext: no edema Abdomen RUQ/epigastric tenderness, no guarding, no rigidity, no rebound A/P: 1) Sepsis (RESOLVED) with cholangitis (not pancreatitis) GI consulted. surgery consulted Stent placed on 10/05/18 ID consulted -on ertepenem q24h; cultures show klebsiella - consider changing to levaquin if okay with ID PICC line present no further hypotension episodes (Sepsis resolved) 2) Acute cholecystitis - surgery consutled and possible cholecystectomy today; NPO 3 )Klebsiella bacteremia due to GI/acute cholecystitis - on continue ertepenem, consider de-escalating antibiotics to levaquin. ID consulted 4) diabetes - not on mcc insulin, without hyperglycemia. - hold metformen. check BS and cover with SSI. 5) HTN -continue metoprolol; BP increased associated with pain, not poor BP control 6) Hypokalemia - resolved 7) elevated liver function test secondary to #1 and #2 - improving VS,Fishbone, I+O VS, Fishbone, I+O Laboratory Tests 10/08/18 07:50 Calcium Level 8.3 L, Aspartate Amino Transf (AST/SGOT) 102 H, Alanine Aminotransferase (ALT/SGPT) 267 H, Alkaline Phosphatase 125 H, Total Bilirubin 1.4 H, Direct Bilirubin 0.9 H, Total Protein 5.5 L, Albumin 2.6 L Vital Signs Date Time Temp Pulse Resp B/P (MAP) Pulse Ox O2 Delivery O2 Flow Rate FiO2 10/08/18 11:20 170/88 10/08/18 09:09 76 10/08/18 06:00 97.7 16 96 10/07/18 11:41 10/05/18 07:15 Room Air I&O- Last 24 Hours up to 6 AM 10/08/18 06:00 Intake Total 1190 ml Output Total 3700 ml Balance -2510 ml ABHAY PADRON DO Oct 08, 2018 11:42
[2018-10-09] VITALS (9 sets, daily range): BP systolic 145–169; BP diastolic 65–92
[2018-10-09 06:03] LABS: HEMATOCRIT 41.8 % (36.0-47.0); HEMOGLOBIN 13.8 g/dl (12.0-15.5); MEAN CORPUSCULAR VOLUME 90.9 fl (80.0-96.0); PLATELET COUNT, AUTOMATED 205 10^3/uL (150-450); WHITE BLOOD COUNT 5.2 10^3/uL (4.0-10.0)
[2018-10-09 06:40] LABS: ALBUMIN 2.8 GM/DL (3.2-5.2); ALT/SGPT 227 U/L (12-78); BILIRUBIN,TOTAL 1.4 MG/DL (0.2-1.0); BLOOD UREA NITROGEN 8 MG/DL (7-18); CALCIUM LEVEL 8.9 MG/DL (8.5-10.1); CARBON DIOXIDE LEVEL 27 MEQ/L (21-32); CHLORIDE LEVEL 104 MEQ/L (98-107); CREATININE FOR GFR 0.66 MG/DL (0.55-1.30); GLOMERULAR FILTRATION RATE > 60.0 (>51); GLUCOSE, FASTING 158 MG/DL (70-100); POTASSIUM SERUM 3.9 MEQ/L (3.5-5.1); SODIUM LEVEL 139 MEQ/L (136-145); TOTAL PROTEIN 6.7 GM/DL (6.4-8.2)
[2018-10-09] MEDS: HumaLOG INSULIN (NovoLOG) PER UNIT SC SCH ×4 (07:30→21:31)
[2018-10-09] MEDS: **hydrALAZINE** 10 MG TAB PO PRN (08:44)
[2018-10-09] MEDS: GABAPENTIN 300 MG CAP PO SCH ×2 (08:44→20:59)
[2018-10-09] MEDS: METOPROLOL TART 25 MG TABLET PO SCH ×2 (08:44→21:18)
[2018-10-09] MEDS: ONDANSETRON 4MG/2ML VIAL (J2405) IV PRN ×2 (08:44→12:57)
[2018-10-09] MEDS: OMEPRAZOLE 20 MG CAP PO SCH (08:44)
[2018-10-09] MEDS: ERTAPENEM SODIUM 1 GM in NS MINI-BAG PLUS 50 ML IV SCH (12:58)
[2018-10-09] MEDS ORDERED: LIDOCAINE 1% SDV INJ 30 ML VIAL As Ordered ONE (13:10)
[2018-10-09] MEDS ORDERED: BUPIVACAINE HCL 0.25% 30 ML VIAL As Ordered ONE (13:10)
--- NOTE | 2018-10-09 13:16 | CR.PDOC ---
General Surgery Consultation Date of Consultation 10/08/18 History and Physical CONSULT REPORT FOR: Dr. Kauffman (gastroenterology) REASON FOR CONSULTATION: possible cholecystitis, abnormal LFTs HISTORY OF PRESENT ILLNESS: Patient known to me and I have previoiusly evaluated her in the clinic for known presence of cholelithiasis and choledocholithiasis. She was previously scheduled to undergo laparoscopic cholecystectomy with me as an outpatient surgery following successful clearance of her common bile duct stones by ERCP. she unde rwent her first ERCP on October 04. From the reports there was no stones found at that time. She returned to the emergency room that night with increasing abdominal pain, fever or tachycardia noted to be hypotensive, suspected to have cholangitis. She improved from this with IV fluid hydration and antibiotics. She had a repeat ERCP for possibility that there were stones that were left over.Reports show no stones were found and the stent was left in place. After this patient remain stable but continues to complain of right-sided abdominal discomfort likewise her LFTs is not fully normalized yet. She has been afebrile. She has been hemodynamically stable. She is able to tolerate food though she has some increased discomfort with it. She has a repeat ultrasound was done. I was asked to see the patient with regards to possibility the patient has cholecystitis and whether she would be a candidate to have her gallbladder removed at this time that she is admitted. PAST MEDICAL HISTORY: 1. Diabetes 2. Kidney stones status post left nephrectomy. 3. Hypertension 4. Nonalcoholic fatty liver disease with hepatomegaly PAST SURGICAL HISTORY Multiple ventral abdominal surgeries, nephrectomy for kidney stones. PAST SURGICAL HISTORY: INCLUDES: 1. Multiple ventral hernia repairs 2. Robotic-assisted laparoscopic left nephrectomy 3. ERCP 2 PREVIOUS ANESTHESIA REACTIONS: ALLERGIES: Please see below. HOME MEDICATIONS: Please see below. REVIEW OF SYSTEMS: GENERAL: Patient history of fever after ERCP last week HEENT: Denies blurred vision and double vision. Denies ear symptoms. Denies ho arseness. NECK: Denies any neck pain. CARDIOVASCULAR: Denies chest pain and palpitations. SKIN: Denies rash. NEUROLOGIC: Denies headache, stroke and transient ischemic attack. PSYCHIATRIC: Denies anxiety and depression. ENDOCRINE: Diabetes on treatment not well controlled hemoglobin A1c still eleva ismael HEMATOLOGY/ONCOLOGY: Denies bleeding or clotting disorder. HEART: Denies any chest pains, palpitations, paroxysmal dyspnea, orthopnea. PULMONARY: Denies chronic cough, dyspnea and wheezing. GASTROINTESTINAL: Denies rectal bleeding, family history of colon cancer, constipation, diarrhea, dysphagia, heartburn and jaundice. GENITOURINARY: Denies dysuria, frequency, hematuria and nocturia. ENDOCRINE: Denies polydipsia, polyphagia, polyuria, heat or cold intolerance. INFECTIOUS: Patient admitted for suspicion for cholangitis following instillation patient to the biliary tree on antibiotics NUTRITION: Reports fair appetite. PHYSICAL EXAMINATION: VITALS SIGNS: Please see below. GENERAL APPEARANCE: Relatively comfortable. Patient is pleasant and cooperative. She does not look in stress. SKIN: Warm and dry. HEENT: Normocephalic, atraumatic. Stem palpebral conjunctiva, anicteric sclerae. Lips and mucosa appear moist. NECK: Supple, no thyromegaly. No obvious jugular venous distention. LUNGS: Clear to auscultation bilaterally. No wheezing appreciated. HEART: No chest wall abnormalities. Regular rate and rhythm with no murmurs appreciated. ABDOMEN: Abdomen is moderately rounded and protuberant specially that of her lower pannus. Her umbilicus is surgically missing. She appears to be mildly distended and slightly tympanitic to percussion. She has some mild tenderness on palpation at the right subcostal area no evidence of Ledesma sign. She is nontender in the other parts of the abdomen., soft, I see no evidence of recurrent or new herniations. EXTREMITIES: Extremities have no deformities. No edema identified ANCILLARIES: . LABORATORY DATA: Please see below. IMAGING STUDIES: . CT abdomen and pelvis (10/05/2018) 1. There are collapsed and thickened segments of colon involving the transverse colon and left colon. Suspicious for colitis. 2. No bowel perforation. 3. Severe pneumobilia. Consistent with recent ERCP. 4. Cholelithiasis without cholecystitis. 5. Diffuse thickening of the distal esophagus. Suspicious for esophagitis. Unchanged from prior. 6. Seroma in the deep subcutaneous tissue in the lower midline ventral abdominal wall. Decreased from prior. 7. Additional findings as described. MRCP (10/05/2018) Distended gallbladder increased in size since the prior study with diffuse gallbladder wall edema. Multiple small subcentimeter stones in the gallbladder. I cannot exclude cholecystitis. Mild intrahepatic and extrahepatic biliary dilatation, common bile duct measures 9 mm maximally and has increased in diameter compared to the prior MRCP exam. Possible small amount of sludge and possible 5-6 mm stone in the distal common bile duct. No pancreatic duct dilation. Tiny amount of perihepatic fluid. Diffuse periportal edema with hepatomegaly. Ultrasound gallbladder (10/07/2018) Markedly distended gallbladder contains sludge and small stones. There is gallbladder wall edema with mild pericholecystic fluid. Air throughout the biliary tree. Common bile duct measures 7 mm. There is hepatomegaly with diffuse fatty infiltration of the liver. IMPRESSION AND PLAN: Choledocholithiasis status post ERCP 2 with stent placement Cholelithiasis with chronic over acute cholecystitis Looks from the ultrasound the patient has a very distended gallbladder also some signs that she has some gallbladder wall thickening and edema consistent with cholecystitis. She also has air-fluid level which a think is iatrogenic from the recent ERCP and air insufflation. She continues to have some pain which I think probably is from the cholecystitis likewise from the gallbladder distention. She is being maintained on antibiotics and has been hemodynamically stable now. She still remains to have elevated LFTs including bilirubin, AST and ALT and [place] line phosphatase the seems to be trending down. Unlikely that this is from the gallbladder itself as I don't see the swelling or edema that significant. With regards to doing cholecystectomy at this time I don't think there is any contraindication this point that she is stable and there does not seem to be any persistent obstruction in the biliary tree downstream nor any evidence of pancreatitis after her ERCP. I think we can go ahead and schedule her for surgery though this might be tricky finding time in the operating room. I will communicate with the patient to be unable to do so. Vital Signs Vital Signs Date Time Temp Pulse Resp B/P (MAP) Pulse Ox O2 Delivery O2 Flow Rate FiO2 10/08/18 06:00 97.7 82 16 162/91 (114) 96 10/07/18 11:41 10/05/18 07:15 Room Air I&Os I&O- Last 24 Hours up to 6 AM 10/08/18 06:00 Intake Total 1190 ml Output Total 3700 ml Balance -2510 ml Laboratory Data Labs 24H Laboratory Tests 2 10/07/18 08:26: Nucleated Red Blood Cells % (auto) 0.0, Anion Gap 6L, Glomerular Filtration Rate > 60.0, Calcium Level 8.5, Aspartate Amino Transf (AST/SGOT) 188H, Alanine Aminotransferase (ALT/SGPT) 395H, Alkaline Phosphatase 129H, Total Bilirubin 2.2H, Direct Bilirubin 1.5H, Total Protein 6.0L, Albumin 2.7L, Albumin/Globulin Ratio 0.82L 10/07/18 12:07: Bedside Glucose (Misc Panel) 222H 10/07/18 17:17: Bedside Glucose (Misc Panel) 229H 10/07/18 20:38: Bedside Glucose (Misc Panel) 222H 10/08/18 06:09: Bedside Glucose (Misc Panel) 185H CBC/BMP Laboratory Tests 10/07/18 08:26 Red Blood Count 4.57, Mean Corpuscular Volume 91.2, Mean Corpuscular Hemoglobin 30.0, Mean Corpuscular Hemoglobin Concent 32.9, Red Cell Distribution Width 12.4 Microbiology Microbiology 10/06/18 Blood Culture - Preliminary, Resulted No Growth after 48 hours. All Specime... 10/05/18 Blood Culture - Final, Complete Klebsiella Oxytoca 10/05/18 Blood Culture - Final, Complete Klebsiella Oxytoca 10/05/18 Urine Culture - Final, Complete Staphylococcus Epidermidis Home Medications Scheduled Calcium Carbonate (Calcium) 600 Mg Tablet, 1,200 MG PO DAILY, (Reported) Cholecalciferol (Vitamin D3) (Vitamin D3) 5,000 Unit Capsule, 5,000 UNIT PO DAILY, (Reported) Gabapentin (Neurontin) 300 Mg Capsule, 300 MG PO BID, (Reported) Metformin HCl (Metformin HCl) 500 Mg Tablet, 500 MG PO TID, (Reported) ON HOLD UNTIL TUESDAY BECAUSE OF CONTRAST DYE Metoprolol Tartrate (Metoprolol Tartrate) 25 Mg Tablet, 25 MG PO BID, (Reported) Multivitamins (Thera M Plus Tablet) 1 Each Tablet, 1 TAB PO DAILY, (Reported) Omeprazole (Omeprazole) 40 Mg Capsule.dr, 40 MG PO DAILY, (Reported) Allergies Coded Allergies: tetanus immune globulin (Verified Adverse Reaction, Mild, redness, 10/04/18) ALLISON BOYKIN MD Oct 08, 2018 07:47
[2018-10-09] MEDS ORDERED: ONDANSETRON 4MG/2ML VIAL (J2405) As Ordered ONE ×2 (13:25→14:58)
[2018-10-09] MEDS ORDERED: fentaNYL 250 MCG/5 ML INJECTION (J3010) As Ordered ONE (13:25)
[2018-10-09] MEDS ORDERED: SUGAMMADEX SODIUM 500 MG/5 ML VIAL (BRIDION) As Ordered ONE (13:25)
[2018-10-09] MEDS ORDERED: LIDOCAINE 2% INJ 100 MG/5 ML SDV (FOR ANES.) As Ordered ONE (13:25)
[2018-10-09] MEDS ORDERED: PROPOFOL 200 MG/20 ML VIAL As Ordered ONE ×2 (13:25→15:30)
[2018-10-09] MEDS ORDERED: dexameTHASONE 4 MG/ML 1ML VIAL (J1100) As Ordered ONE (13:25)
[2018-10-09] MEDS ORDERED: MIDAZOLAM INJ 2 MG/2 ML VIAL (J2250) As Ordered ONE (13:25)
[2018-10-09] MEDS ORDERED: ROCURONIUM BROMIDE 50 MG/5 ML VIAL As Ordered ONE (13:25)
[2018-10-09] MEDS ORDERED: SCOPOLAMINE 1MG TRANSDERMAL PATCH As Ordered ONE (13:44)
[2018-10-09] MEDS ORDERED: KETOROLAC 60 MG/2 ML VIAL (J1885) As Ordered ONE (14:56)
[2018-10-09] MEDS ORDERED: METOCLOPRAMIDE INJ 10MG/2ML VIAL (J2765) As Ordered ONE (14:57)
[2018-10-09] MEDS ORDERED: METOCLOPRAMIDE INJ 10MG/2ML VIAL (J2765) IV PRN (17:00)
[2018-10-09] MEDS ORDERED: fentaNYL 100 MCG/2 ML INJECTION (J3010) IV PRN (17:00)
[2018-10-09] MEDS ORDERED: LR 1,000 ML IV SCH (17:00)
[2018-10-09] MEDS ORDERED: MEPERIDINE INJ 25 MG/ML VIAL (J2175) IV PRN (17:00)
[2018-10-09] MEDS ORDERED: PERCOCET 5MG/325MG TAB PO PRN (17:00)
[2018-10-09] MEDS ORDERED: ONDANSETRON 4MG/2ML VIAL (J2405) IV PRN (17:00)
[2018-10-09] MEDS: MULTIVITAMINS/MINERALS THERAP 1 TAB PO SCH (18:16)
[2018-10-09] MEDS: metFORMIN (GLUCOPHAGE) 500 MG TAB PO SCH (18:52)
[2018-10-09] MEDS ORDERED: POLYVINYL ALCOHOL OPHTH SOLN 15 ML(LIQUITEARS) OU PRN (19:00)
--- NOTE | 2018-10-09 19:04 | IPNPDOC ---
Text Note Date of Service The patient was seen on 10/09/18. NOTE S: patient had lap rae earlier this afternoon. States feels better. minimal pain. no N, no V; states dry eyes since leaving recovery room O: Vitals as below General:pleasant, NAD AAOx3 HEENT: WILDER/EOMI; left eye - no signs of foreign body HRRR LCTA Abdomen: soft, lap rae incision sites healing well, no drainage A/P: 1) Sepsis (RESOLVED)associated with cholangitis (not pancreatitis) GI consulted. surgery consulted Stent placed on 10/05/18 PICC line placed 10/06/18 Lap Rae on 10/09/18 ID consulted -on ertepenem q24h; cultures show klebsiella - consider changing to levaquin if okay with ID no further hypotension episodes (Sepsis resolved) 2) Acute cholecystitis - lap cholecystectomy 10/09/18 3 )Klebsiella bacteremia due to GI/acute cholecystitis - on continue ertepenem, consider de-escalating antibiotics to levaquin. ID consulted 4) diabetes - not on custodial insulin, without hyperglycemia. - hold metformen. check BS and cover with SSI. 5) HTN -continue metoprolol; BP increased associated with pain, not poor BP control 6) Hypokalemia - resolved 7) elevated liver function test secondary to #1 and #2 - improving Current Medications Dextrose (Dextrose 50%) 25 ml ASDIRECTED PRN IV SEE LABEL COMMENTS; Start 10/05/18 at 04:45 Ertapenem 1 gm/ Sodium Chloride 50 ml @ 100 mls/hr Q24H IV Last administered on 10/09/18at 12:58; Start 10/06/18 at 12:00 Gabapentin (Neurontin) 300 mg BID PO Last administered on 10/09/18at 08:44; Start 10/07/18 at 21:00 Glucagon (Glucagon) 1 mg ASDIRECTED PRN SC SEE LABEL COMMENTS; Start 10/05/18 at 04:45 Glucose (Glucose) 16 GM ASDIRECTED PRN PO SEE LABEL COMMENTS; Start 10/05/18 at 04:45 Hydralazine HCl (Apresoline) 10 mg Q6H PRN PO SBP above 160 Last administered on 10/09/18at 08:44; Start 10/07/18 at 17:30 Insulin Human Lispro (HumaLOG INSULIN) SEE PROTOCOL TABLE AC SC Last administered on 10/08/18 18:12; Start 10/05/18 at 07:30 Insulin Human Lispro (HumaLOG INSULIN) SEE PROTOCOL TABLE QHS SC ; Start 10/05/18 at 21:00 Metformin HCl (Glucophage) 500 mg WM PO Last administered on 10/09/18 18:52; Start 10/09/18 at 18:00 Metoprolol Tartrate (Lopressor) 25 mg BID PO Last administered on 10/09/18 08:44; Start 10/06/18 at 09:00 Morphine Sulfate (Morphine Sulfate Inj) 4 mg Q4HP PRN IV SEVERE PAIN (PS 8-10) Last administered on 10/07/18 12:18; Start 10/05/18 at 04:45 Multivitamins (Theragram-M) 1 tab DAILY PO ; Start 10/09/18 at 09:00 Omeprazole (PriLOSEC) 20 mg DAILY PO Last administered on 10/09/18 08:44; Start 10/06/18 at 09:00 Ondansetron HCl (ZOFRAN INJection) 4 mg Q4HP PRN IV NAUSEA OR VOMITING Last administered on 10/09/18 12:57; Start 10/05/18 at 04:45 Polyethylene Glycol (Miralax) 1 pkt DAILYPRN PRN PO CONSTIPATION Last administered on 10/05/18 20:34; Start 10/05/18 at 20:30 VS,Fishbone, I+O VS, Fishbone, I+O Laboratory Tests 10/09/18 05:37 Red Blood Count 4.60, Mean Corpuscular Volume 90.9, Mean Corpuscular Hemoglobin 30.0, Mean Corpuscular Hemoglobin Concent 33.0, Red Cell Distribution Width 12.1, Calcium Level 8.9, Aspartate Amino Transf (AST/SGOT) 75 H, Alanine Aminotransferase (ALT/SGPT) 227 H, Alkaline Phosphatase 140 H, Total Bilirubin 1.4 H, Total Protein 6.7 #, Albumin 2.8 L Vital Signs Date Time Temp Pulse Resp B/P (MAP) Pulse Ox O2 Delivery O2 Flow Rate FiO2 10/09/18 18:44 97.6 78 17 158/90 (112) 96 10/09/18 16:45 2 10/05/18 07:15 Room Air I&O- Last 24 Hours up to 6 AM 10/09/18 06:00 Intake Total 780 ml Output Total 3850 ml Balance -3070 ml ABHAY PADRON DO Oct 09, 2018 19:04
[2018-10-09 21:31] LABS: BASO # 0.1 10^3/uL (0.0-0.2); BASO % 0.5 % (0.0-1.0); EOS % 0.1 % (0.0-3.0); HEMATOCRIT 42.9 % (36.0-47.0); HEMOGLOBIN 14.2 g/dl (12.0-15.5); LYMPH % 9.8 % (24.0-44.0); MEAN CORPUSCULAR HEMOGLOBIN 29.8 pg (27.0-33.0); MEAN CORPUSCULAR HGB CONC 33.1 g/dl (32.0-36.5); MEAN CORPUSCULAR VOLUME 90.1 fl (80.0-96.0); MONO # 0.5 10^3/uL (0.0-0.8); MONO % 5.1 % (0.0-5.0); NEUTROPHILS # 8.1 10^3/uL (1.8-7.7); NEUTROPHILS % 83.1 % (36.0-66.0); PLATELET COUNT, AUTOMATED 216 10^3/uL (150-450); RED BLOOD COUNT 4.76 10^6/uL (4.00-5.40); WHITE BLOOD COUNT 9.7 10^3/uL (4.0-10.0)
[2018-10-09 22:02] LABS: BILIRUBIN,DIRECT 0.9 MG/DL (0.0-0.2); BILIRUBIN,TOTAL 1.2 MG/DL (0.2-1.0); TOTAL PROTEIN 6.6 GM/DL (6.4-8.2)
[2018-10-10] VITALS: BP 155/76
[2018-10-10 05:00] VITALS: BP 140/80
[2018-10-10 06:49] LABS: BASO % 0.3 % (0.0-1.0); EOS % 0.2 % (0.0-3.0); HEMATOCRIT 40.2 % (36.0-47.0); HEMOGLOBIN 13.1 g/dl (12.0-15.5); LYMPH # 2.4 10^3/uL (1.5-4.5); LYMPH % 27.6 % (24.0-44.0); MEAN CORPUSCULAR HEMOGLOBIN 29.2 pg (27.0-33.0); MEAN CORPUSCULAR HGB CONC 32.6 g/dl (32.0-36.5); MEAN CORPUSCULAR VOLUME 89.7 fl (80.0-96.0); MONO # 0.7 10^3/uL (0.0-0.8); MONO % 8.1 % (0.0-5.0); NEUTROPHILS # 5.5 10^3/uL (1.8-7.7); NEUTROPHILS % 62.6 % (36.0-66.0); PLATELET COUNT, AUTOMATED 236 10^3/uL (150-450); RED BLOOD COUNT 4.48 10^6/uL (4.00-5.40); WHITE BLOOD COUNT 8.8 10^3/uL (4.0-10.0)
[2018-10-10 07:07] LABS: ALBUMIN 2.7 GM/DL (3.2-5.2); ALT/SGPT 168 U/L (12-78); BILIRUBIN,TOTAL 1.1 MG/DL (0.2-1.0); BLOOD UREA NITROGEN 10 MG/DL (7-18); CALCIUM LEVEL 8.8 MG/DL (8.5-10.1); CARBON DIOXIDE LEVEL 28 MEQ/L (21-32); CHLORIDE LEVEL 104 MEQ/L (98-107); CREATININE FOR GFR 0.76 MG/DL (0.55-1.30); GLOMERULAR FILTRATION RATE > 60.0 (>51); GLUCOSE, FASTING 195 MG/DL (70-100); POTASSIUM SERUM 3.9 MEQ/L (3.5-5.1); SODIUM LEVEL 137 MEQ/L (136-145); TOTAL PROTEIN 6.4 GM/DL (6.4-8.2)
[2018-10-10] MEDS: HumaLOG INSULIN (NovoLOG) PER UNIT SC SCH ×2 (07:24→12:03)
[2018-10-10 08:00] VITALS: BP 133/68
--- NOTE | 2018-10-10 08:03 | ROOPDOC ---
[facility] Report Of Operation Report of Operation DATE OF PROCEDURE: 10/11/18 PREPROCEDURE DIAGNOSES: Acute Cholecystitis, h/o choledocholithiasis, cholangitis. POSTPROCEDURE DIAGNOSES: Acute over chronic cholecystitis. PROCEDURE: Laparoscopic Cholecystectomy, lysis of adhesions. SURGEON: Allison Arellano MD TUB RIDER: Gunner Smith [facility] ANESTHESIA: General Anesthesia. ESTIMATED BLOOD LOSS: Approximately 40 mL. COMPLICATIONS: none. REMARKS: 57 F admitted to the hospital following ERCP with an episode of cholangitis, s/p ERCP with stent placement with continued right upper quadrant discomfort from her distended gallbladder. PROCEDURE NOTE: distended gallbladder, thick walled, short cystic duct. multiple intraabdominal adhesions, presence of mesh noted from previous hernia repair.. DESCRIPTION OF PROCEDURE: . ALLISON ARELLANO MD Oct 10, 2018 08:03
[2018-10-10] MEDS: OMEPRAZOLE 20 MG CAP PO SCH (08:38)
[2018-10-10] MEDS: GABAPENTIN 300 MG CAP PO SCH (08:38)
[2018-10-10 08:39] VITALS: BP 133/68
[2018-10-10] MEDS: MULTIVITAMINS/MINERALS THERAP 1 TAB PO SCH (08:39)
[2018-10-10] MEDS: METOPROLOL TART 25 MG TABLET PO SCH (08:39)
[2018-10-10] MEDS: metFORMIN (GLUCOPHAGE) 500 MG TAB PO SCH ×2 (08:39→12:03)
[2018-10-10 12:00] VITALS: BP 132/76
[2018-10-10] MEDS: ERTAPENEM SODIUM 1 GM in NS MINI-BAG PLUS 50 ML IV SCH (12:03)
[2018-10-10] MEDS ORDERED: SM A10CA PO (13:38)
[2018-10-10] MEDS ORDERED: LEVA750T7 PO (13:38)
--- NOTE | 2018-10-10 14:48 | DS.PDOC ---
Discharge Summary General Date of Admission Oct 05, 2018 at 04:32 Date of Discharge 10/10/18 Specialist/Consultants Involve Dr. Kauffman of GI, Dr. Arellano of Gen Surg, Dr. Chase of ID Discharge Summary PROCEDURES PERFORMED DURING STAY: ERCP on 10/05/[address] Kauffman of GI, s/p cholecystectomy on 10/09/[address] Arellano ADMITTING/DISCHARGE DIAGNOSES: Cholangitis status post ERCP Acute cholecystitis status post cholecystectomy Klebsiella bacteremia secondary to above Elevated liver function tests secondary to above History of diabetes mellitus History of hypertension COMPLICATIONS/CHIEF COMPLAINT: Cholangitis, Pancreatitis. HISTORY OF PRESENT ILLNESS: . 57-year-old female with past medical history of diabetes, kidney stones status post left nephrectomy, hypertension, and nonalcoholic fatty liver disease presented to the ER with a chief complaint of nausea, vomiting, and abdominal pain. Of note, the patient underwent outpatient surgery for clearance of a common bile duct stone via ERCP on October 04. She returned to the ER the following day for the aforementioned complaints. She was found to have elevated liver function tests, and lactic acidosis. There was a high suspicion for cholangitis. She was given IV fluid hydration and antibiotics and taken for a repeat ERCP. The entire main bile duct was dilated and a plastic stent was placed. Since then, the patient's liver function tests have improved. However, the patient continued to have right upper quadrant discomfort and was found to have a distended gallbladder. The patient subsequently underwent laparoscopic cholecystectomy with lysis of adhesions with general surgery. At this time, the patient states that she is feeling much better. Her liver function tests continue to trend downward and she has tolerated a diet without any acute complaints. IV antibiotic therapy has been transition to by mouth Levaquin to be completed over the next 5 days as she was diagnosed with Klebsiella bacteremia. Infectious disease input has been appreciated. General surgery was in to see the patient this afternoon, and has cleared her for discharge. I have asked the patient to follow-up with general surgery and GI within 2 weeks. She is also to follow up with her PCP within 7 days for further management of her medical comorbidities. Lastly, I have counseled the patient to return to the ER for any acute emergency. DISCHARGE MEDICATIONS: Please see below. ALLERGIES: Please see below. PHYSICAL EXAMINATION ON DISCHARGE: VITAL SIGNS: Please see below. GENERAL: Awake, alert, in no acute distress HEENT: Normocephalic, atraumatic NECK: No JVD CARDIOVASCULAR EXAMINATION: Normal rate, normal S1, S2 RESPIRATORY EXAMINATION: Clear to auscultation bilaterally ABDOMINAL EXAMINATION: Soft, nontender, nondistended. Portals of entry from laparoscopic surgery noted to be clean dry and intact. EXTREMITIES: No erythema, no tenderness LABORATORY DATA: Please see below. IMAGING: EXAM: CT Abdomen and Pelvis With Contrast EXAM DATE/TIME: 10/05/2018 1:26 AM CLINICAL HISTORY: 57 years old, female; Abdominal pain; Generalized; Additional Info: epigastric pain S/P ERCP TECHNIQUE: Imaging protocol: Axial computed tomography images of the abdomen and pelvis with intravenous contrast. Coronal and sagittal reformatted images were created and reviewed. Radiation optimization: All CT scans at this facility use at least one of these dose optimization techniques: automated exposure control; mA and/or kV adjustment per patient size (includes targeted exams where dose is matched to clinical indication); or iterative reconstruction. Contrast material: ISOVUE 370; Contrast volume: 100 ml; Contrast route: IV; COMPARISON: CT ABD PELVIS W/O FOL BY WIT 04/05/2017 8:06 AM FINDINGS: Mediastinum: Diffuse thickening of the distal esophagus. Liver: Hepatomegaly. Fatty infiltration of the liver. Gallbladder and bile ducts: Severe pneumobilia. No gallbladder wall thickening. Gas in the gallbladder. Small gallstones in the gallbladder. CBD measures 8 mm in diameter. Pancreas: Normal. No ductal dilation. Spleen: Normal. No splenomegaly. Adrenals: Normal. No mass. Kidneys and ureters: No right hydronephrosis. No masses. Status post left nephrectomy. Stomach and bowel: No abnormal bowel dilatation. Moderate stool in the colon. There are collapsed and thickened segments of colon involving the transverse colon and left colon. Negative for colonic diverticulitis. Appendix: Appendix is normal. Intraperitoneal space: Normal. No free air. No significant fluid collection. Vasculature: Mild atherosclerotic disease. No aortic aneurysm. Lymph nodes: Normal. No enlarged lymph nodes. Bladder: Unremarkable as visualized. Reproductive: Uterus is normal. Bones/joints: Moderate degenerative spine. No acute fracture. Soft tissues: Seroma in the deep subcutaneous tissue in the lower midline ventral abdominal wall measuring 1.5 x 4.5 x 6.8 cm. IMPRESSION: 1. There are collapsed and thickened segments of colon involving the transverse colon and left colon. Suspicious for colitis. 2. No bowel perforation. 3. Severe pneumobilia. Consistent with recent ERCP. 4. Cholelithiasis without cholecystitis. 5. Diffuse thickening of the distal esophagus. Suspicious for esophagitis. Unchanged from prior. 6. Seroma in the deep subcutaneous tissue in the lower midline ventral abdominal wall. Decreased from prior. 7. Additional findings as described. MRCP: MRCP exam is accomplished utilizing multiple heavily T2-weighted sequences in the axial and coronal planes with MIP reconstruction images. Comparison is made with a prior study 09/14/[address] 10/05/2018. Liver again noted to be enlarged. There is diffuse periportal edema. There is mild intrahepatic biliary dilatation centrally. The common bile duct is mildly dilated at 9 mm. This has slightly increased in diameter compared to the prior MRCP exam. Distally in the common bile duct, there is vague hypointensity, which may represent sludge. There is a suggestion of a possible 5-6 mm calculus in the distal common. Pancreatic duct is not dilated. Gallbladder demonstrates multipl e subcentimeter stones. The gallbladder is significantly distended and there is diffuse gallbladder wall edema. There is a tiny amount of perihepatic fluid. IMPRESSION: Distended gallbladder increased in size since the prior study with diffuse gallbladder wall edema. Multiple small subcentimeter stones in the gallbladder. I cannot exclude cholecystitis. Mild intrahepatic and extrahepatic biliary dilatation, common bile duct measures 9 mm maximally and has increased in diameter compared to the prior MRCP exam. Possible small amount of sludge and possible 5-6 mm stone in the distal common bile duct. No pancreatic duct dilation. Tiny amount of perihepatic fluid. Diffuse periportal edema with hepatomegaly. ERCP: 19 views. History: Common bile duct stones versus blood clot versus cholangitis or pancreatitis. 16 seconds of fluoroscopy time is reported. Comparison is made with ERCP images from October 04, 2018. Findings: A sequence of 19 last image hold fluoroscopically obtained spot radiographs of the right upper quadrant document endoscopic cannulation, contrast injection, and stent placement. RIGHT UPPER QUADRANT ULTRASOUND: Real-time sonographic evaluation of the right upper quadrant performed. Gallbladder is markedly distended. It contains small stones and sludge. There appears to be gallbladder wall edema with small amount of surrounding pericholecystic fluid. Air is seen throughout the biliary tree. Common bile duct measures 7 mm. Biliary stent in the common bile duct is not visualized. Liver demonstrates hepatomegaly with a length in the midclavicular line 24.1 cm. There is diffuse fatty infiltration of the liver. Pancreas is not well seen due to overlying bowel gas. Right kidney demonstrates no hydronephrosis with normal size 14.4 cm in length. The study is due to patient body habitus and bowel gas. IMPRESSION: Markedly distended gallbladder contains sludge and small stones. There is gallbladder wall edema with mild pericholecystic fluid. Air throughout the biliary tree. Common bile duct measures 7 mm. There is hepatomegaly with diffuse fatty infiltration of the liver. Procedure: ERCP Indications: Suspected ascending cholangitis Providers: Solomon Kauffman MD Referring MD: Lashell Jiménez Do Requesting Provider: Medicines: General Anesthesia Complications: No immediate complications. Procedure: Pre-Anesthesia Assessment: - Prior to the procedure, a History and Physical was performed, and patient medications and allergies were reviewed. The patient is competent. The risks and benefits of the procedure and the sedation options and risks were discussed with the patient. All questions were answered and informed consent was obtained. Patient identification and proposed procedure were verified by the physician, the nurse and the anesthesiologist in the procedure room. Mental Status Examination: alert and oriented. Airway Examination: normal oropharyngeal airway and neck mobility. Respiratory Examination: clear to auscultation. CV Examination: normal. Prophylactic Antibiotics: The patient does not require prophylactic antibiotics. Prior Anticoagulants: The patient has taken no previous anticoagulant or antiplatelet agents. ASA Grade Assessment: III - A patient with severe systemic disease. After reviewing the risks and benefits, the patient was deemed in satisfactory condition to undergo the procedure. The anesthesia plan was to use general anesthesia. Immediately prior to administration of medications, the patient was re-assessed for adequacy to receive sedatives. The heart rate, respiratory rate, oxygen saturations, blood pressure, adequacy of pulmonary ventilation, and response to care were monitored throughout the procedure. The physical status of the patient was re-assessed after the procedure. The Duodenoscope was introduced through the mouth, and advanced to the duodenum and used to inject contrast into the bile duct. The ERCP was accomplished without difficulty. The patient tolerated the procedure well. Findings: The space physicist film was normal. The scope was advanced to a normal major papilla in the descending duodenum. Examination of the pharynx, larynx and associated structures, and upper GI tract was normal. Pus was emerging from the major papilla. A biliary sphincterotomy had been performed. The sphincterotomy appeared open. A 0.035 inch x 260 cm straight Hydra Jagwire was passed into the biliary tree. The short-nosed traction sphincterotome was passed over the guidewire and the bile duct was then deeply cannulated. Contrast was injected. I personally interpreted the bile duct images. Ductal flow of contrast was adequate. Image quality was adequate. Contrast extended to the main bile duct. The main bile duct was diffusely dilated. The largest diameter was 9 mm. One 10 Fr by 7 cm plastic stent with a single external flap and a single internal flap was placed into the common bile duct. Bile and pus flowed through the stent. The stent was in good position. Impression: - Pus was seen in the major papilla. - Prior biliary sphincterotomy appeared open. - The entire main bile duct was dilated. - One plastic stent was placed into the common bile duct. Recommendation: - The patient will be observed post-procedure, until all discharge criteria are met. - Return patient to ICU for ongoing care. - Clear liquid diet for 1 day, then advance as tolerated to full liquid diet. - Use broad spectrum antibiotics for now and follow ID recommendations for adjusting antibiotics and complete entire course.. - Repeat ERCP in 6 weeks to remove stent. - Return to GI clinic in 2 weeks. - Refer to a surgeon as previously scheduled. - Return to primary care physician. PROGNOSIS: Fair ACTIVITY: As tolerated. DIET: As tolerated DISCHARGE PLAN: DISPOSITION: . Home DISCHARGE INSTRUCTIONS: Follow-up with primary care physician within 7 days. Follow-up with GI and general surgery within 2 weeks. Complete antibiotic trial as prescribed. Return to the ER for any acute emergencies. DISCHARGE CONDITION: Stable. TIME SPENT ON DISCHARGE: Greater than 30 minutes. Vital Signs/I&Os Vital Signs Date Time Temp Pulse Resp B/P (MAP) Pulse Ox O2 Delivery O2 Flow Rate FiO2 10/10/18 12:00 98.9 87 17 132/76 (94) 97 10/09/18 16:45 2 10/05/18 07:15 Room Air I&O- Last 24 Hours up to 6 AM 10/10/18 06:00 Intake Total 1945 ml Output Total 2940 ml Balance -995 ml Laboratory Data Labs 24H Laboratory Tests 2 10/09/18 16:44: Bedside Glucose (Misc Panel) 181H 10/09/18 21:08: Immature Granulocyte % (Auto) 1.4, White Blood Count 9.7, Red Blood Count 4.76, Hemoglobin 14.2, Hematocrit 42.9, Mean Corpuscular Volume 90.1, Mean Corpuscular Hemoglobin 29.8, Mean Corpuscular Hemoglobin Concent 33.1, Red Cell Distribution Width 12.1, Platelet Count 216, Neutrophils (%) (Auto) 83.1H, Lymphocytes (%) (Auto) 9.8L, Monocytes (%) (Auto) 5.1H, Eosinophils (%) (Auto) 0.1, Basophils (%) (Auto) 0.5, Neutrophils # (Auto) 8.1H, Lymphocytes # (Auto) 1.0L, Monocytes # (Auto) 0.5, Eosinophils # (Auto) 0.0, Basophils # (Auto) 0.1, Nucleated Red Blood Cells % (auto) 0.0, Aspartate Amino Transf (AST/SGOT) 86H, Alanine Aminotransferase (ALT/SGPT) 221H, Alkaline Phosphatase 135H, Total Bilirubin 1.2H, Direct Bilirubin 0.9H, Total Protein 6.6, Albumin 3.0L, Albumin/Globulin Ratio 0.83L 10/09/18 21:22: Bedside Glucose (Misc Panel) 317H 10/10/18 06:16: Immature Granulocyte % (Auto) 1.2, White Blood Count 8.8, Red Blood Count 4.48, Hemoglobin 13.1, Hematocrit 40.2, Mean Corpuscular Volume 89.7, Mean Corpuscular Hemoglobin 29.2, Mean Corpuscular Hemoglobin Concent 32.6, Red Cell Distribution Width 12.1, Platelet Count 236, Neutrophils (%) (Auto) 62.6, Lymphocytes (%) (Auto) 27.6, Monocytes (%) (Auto) 8.1H, Eosinophils (%) (Auto) 0.2, Basophils (%) (Auto) 0.3, Neutrophils # (Auto) 5.5, Lymphocytes # (Auto) 2.4, Monocytes # (Auto) 0.7, Eosinophils # (Auto) 0.0, Basophils # (Auto) 0.0, Nucleated Red Blood Cells % (auto) 0.0, Aspartate Amino Transf (AST/SGOT) 50H, Alanine Aminotransferase (ALT/SGPT) 168H, Alkaline Phosphatase 109, Total Bilirubin 1.1H, Total Protein 6.4, Albumin 2.7L, Albumin/Globulin Ratio 0.73L, Anion Gap 5L, Glomerular Filtration Rate > 60.0, Blood Urea Nitrogen 10, Creatinine 0.76, Sodium Level 137, Potassium Level 3.9, Chloride Level 104, Carbon Dioxide Level 28, Calcium Level 8.8 10/10/18 11:23: Bedside Glucose (Misc Panel) 234H CBC/BMP Laboratory Tests 10/09/18 21:08 Red Blood Count 4.76, Mean Corpuscular Volume 90.1, Mean Corpuscular Hemoglobin 29.8, Mean Corpuscular Hemoglobin Concent 33.1, Red Cell Distribution Width 12.1, Neutrophils (%) (Auto) 83.1 H, Lymphocytes (%) (Auto) 9.8 L, Monocytes (%) (Auto) 5.1 H, Eosinophils (%) (Auto) 0.1, Basophils (%) (Auto) 0.5, Neutrophils # (Auto) 8.1 H, Lymphocytes # (Auto) 1.0 L, Monocytes # (Auto) 0.5, Eosinophils # (Auto) 0.0, Basophils # (Auto) 0.1 10/10/18 06:16 Red Blood Count 4.48, Mean Corpuscular Volume 89.7, Mean Corpuscular Hemoglobin 29.2, Mean Corpuscular Hemoglobin Concent 32.6, Red Cell Distribution Width 12.1, Neutrophils (%) (Auto) 62.6, Lymphocytes (%) (Auto) 27.6, Monocytes (%) (Auto) 8.1 H, Eosinophils (%) (Auto) 0.2, Basophils (%) (Auto) 0.3, Neutrophils # (Auto) 5.5, Lymphocytes # (Auto) 2.4, Monocytes # (Auto) 0.7, Eosinophils # ( Auto) 0.0, Basophils # (Auto) 0.0, Calcium Level 8.8, Aspartate Amino Transf (AST/SGOT) 50 H, Alanine Aminotransferase (ALT/SGPT) 168 H, Alkaline Phosphatase 109, Total Bilirubin 1.1 H, Total Protein 6.4, Albumin 2.7 L FSBS Laboratory Tests Test 10/09/18 16:44 10/09/18 21:22 10/10/18 11:23 Range/Units Bedside Glucose (Misc Panel) 181 317 234 70-105 MG/DL Microbiology Microbiology 10/06/18 Blood Culture - Preliminary, Resulted No Growth after 72 hours. All specime... 10/05/18 Blood Culture - Final, Complete Klebsiella Oxytoca 10/05/18 Blood Culture - Final, Complete Klebsiella Oxytoca 10/05/18 Urine Culture - Final, Complete Staphylococcus Epidermidis Discharge Medications Scheduled Calcium Carbonate (Calcium) 600 Mg Tablet, 1,200 MG PO DAILY, (Reported) Cholecalciferol (Vitamin D3) (Vitamin D3) 5,000 Unit Capsule, 5,000 UNIT PO DAILY, (Reported) Gabapentin (Neurontin) 300 Mg Capsule, 300 MG PO BID, (Reported) Lactobacillus Acidophilus (Acidophilus) 1 Each Capsule, 1 CAP PO DAILY Levofloxacin (Levaquin) 750 Mg Tablet, 1 TAB PO DAILY Metformin HCl (Metformin HCl) 500 Mg Tablet, 500 MG PO TID, (Reported) ON HOLD UNTIL TUESDAY BECAUSE OF CONTRAST DYE Metoprolol Tartrate (Metoprolol Tartrate) 25 Mg Tablet, 25 MG PO BID, (Reported) Multivitamins (Thera M Plus Tablet) 1 Each Tablet, 1 TAB PO DAILY, (Reported) Omeprazole (Omeprazole) 40 Mg Capsule.dr, 40 MG PO DAILY, (Reported) Allergies Coded Allergies: tetanus immune globulin (Verified Adverse Reaction, Mild, redness, 10/04/18) ANA TEMPLE MD Oct 10, 2018 14:48
--- NOTE | 2018-10-10 15:55 | IPN ---
DATE: 10/09/2018 Malu is doing much better. She had a laparoscopic cholecystectomy done this afternoon by Dr. Arellano. She has minimal pain. No fever or chills. She has been afebrile 24 hours after hospitalization. White count is 5.2, hemoglobin 13.8, hematocrit 41.8, platelets 205. Sodium 139, potassium 3.9, chloride 104, bicarbonate 27, BUN 8, creatinine 0.6, glucose 158, calcium 8.9. Bilirubin is 1.4 down from 2.3, AST 75 down from 251, ALT 227 down from 380. Blood cultures are positive for Klebsiella oxytoca, resistant only to ampicillin. MEDICATIONS: Intravenous (IV) Invanz 1 gram daily since 10/06/2018, currently day #4. IMPRESSION: 1. Acute ascending cholangitis with Klebsiella bacteremia, status post endoscopic retrograde cholangiopancreatography (ERCP), doing well on IV Invanz with improving liver function tests (LFTs) and defervescence. Follow up. 2. Repeat blood cultures done on 10/06/2018 were negative. 3. Gallstones with acute cholangitis, status post cholecystectomy. LFTs are improving. 4. Non-insulin dependent diabetes. Metformin was restarted. PLAN: Discontinue IV ertapenem tomorrow. Switch her to levofloxacin 500 mg by mouth daily for seven days to finish a 10-day course of antibiotic. Patient could be discharged home from an infectious disease standpoint in the next 24-48 hours if LFTs continue to improve.
== END 2018-10-10 15:10 | disposition home or self-care (01) | DRG 951 ==
LOC: M ED 23:22 → M ED INP 10-05 04:32 → M PED 10-05 07:35 → M ICU 10-05 12:43 → M PCU 10-05 21:56 → M MSPAV 10-08 05:38 → M PED 10-09 11:56
PROVIDERS: ADMIT Internal Medicine; ATTEND Internal Medicine
PROC: 0F798DZ Dilation of Common Bile Duct with Intraluminal Device, Via Natural or Artificial Opening Endoscopic (ICD-10-PCS; principal; 2018-10-05 16:00)
PROC: 0FT44ZZ Resection of Gallbladder, Percutaneous Endoscopic Approach (ICD-10-PCS; 2018-10-10)
DX: K91.89 Other postprocedural complications and disorders of digestive system (principal); A41.9 Sepsis, unspecified organism; K83.09 Other cholangitis; K76.0 Fatty (change of) liver, not elsewhere classified; E11.9 Type 2 diabetes mellitus without complications; I10 Essential (primary) hypertension; B96.1 Klebsiella pneumoniae [K. pneumoniae] as the cause of diseases classified elsewhere; Z79.899 Other long term (current) drug therapy; Z88.7 Allergy status to serum and vaccine; E87.6 Hypokalemia

== ENCOUNTER → 2018-10-15 | Outpatient (CLI) | payer BC ==
[~2018-10-15] MED LIST changes: +BACITAB PO; +CIPR-249 PO; +LEVA750T7 PO; +METO25TA4 PO; +NEUR300C PO; +PERC5TAB12 PO; +PERCOCET PO; +SENO8.6T10 PO; +SM A10CA PO; +VITMTA PO
[2018-10-15 08:37] LABS: BASO # 0.1 10^3/uL (0.0-0.2); BASO % 0.8 % (0.0-1.0); EOS # 0.1 10^3/uL (0.0-0.50); EOS % 1.9 % (0.0-3.0); HEMATOCRIT 45.1 % (36.0-47.0); HEMOGLOBIN 14.7 g/dl (12.0-15.5); LYMPH # 1.9 10^3/uL (1.5-4.5); LYMPH % 25.9 % (24.0-44.0); MEAN CORPUSCULAR HEMOGLOBIN 29.9 pg (27.0-33.0); MEAN CORPUSCULAR HGB CONC 32.6 g/dl (32.0-36.5); MEAN CORPUSCULAR VOLUME 91.9 fl (80.0-96.0); MONO # 0.5 10^3/uL (0.0-0.8); NEUTROPHILS # 4.7 10^3/uL (1.8-7.7); NEUTROPHILS % 63.5 % (36.0-66.0); PLATELET COUNT, AUTOMATED 381 10^3/uL (150-450); RED BLOOD COUNT 4.91 10^6/uL (4.00-5.40); WHITE BLOOD COUNT 7.4 10^3/uL (4.0-10.0)
[2018-10-15 08:47] LABS: INR 1.01
[2018-10-15 08:48] LABS: PARTIAL THROMBOPLASTIN TIME 31.2 SECONDS (25.0-38.4)
[2018-10-15 09:08] LABS: ALBUMIN 3.2 GM/DL (3.2-5.2); ALT/SGPT 52 U/L (12-78); BILIRUBIN,DIRECT 0.4 MG/DL (0.0-0.2); BILIRUBIN,TOTAL 0.9 MG/DL (0.2-1.0); BLOOD UREA NITROGEN 11 MG/DL (7-18); CREATININE FOR GFR 0.85 MG/DL (0.55-1.30); GLOMERULAR FILTRATION RATE > 60.0 (>51); TOTAL PROTEIN 7.6 GM/DL (6.4-8.2)
== END ==
LOC: M LAB 08:15
PROVIDERS: ATTEND Internal Medicine Gastroenterology
DX: K80.31 Calculus of bile duct with cholangitis, unspecified, with obstruction (principal)

== ENCOUNTER 2018-10-19 13:43 | Observation (INO) | payer BC ==
[~2018-10-19] VITALS: Ht 162.6 cm; Wt 78.9 kg
[~2018-10-19 13:43] MED LIST changes: -BACITAB PO; -CIPR-249 PO; +LIDOCAINE 1% MDV 20ML VIAL SQ PRN; +LIDOCAINE 2% INJ 100 MG/5 ML SDV (FOR ANES.) As Ordered ONE; +MIDAZOLAM INJ 2 MG/2 ML VIAL (J2250) As Ordered ONE; +NS 1,000 ML IV ONE; +ONDANSETRON 4MG/2ML VIAL (J2405) As Ordered ONE; -PERC5TAB12 PO; +PROPOFOL 200 MG/20 ML VIAL As Ordered ONE; +ROCURONIUM BROMIDE 50 MG/5 ML VIAL As Ordered ONE; -SENO8.6T10 PO; +dexameTHASONE 4 MG/ML 1ML VIAL (J1100) As Ordered ONE; +fentaNYL 100 MCG/2 ML INJECTION (J3010) As Ordered ONE
[2018-10-19] MEDS ORDERED: CONRAY-60 60% 50ML VIAL (Q9961) As Ordered ONE (13:48)
[2018-10-19] MEDS ORDERED: SCOPOLAMINE 1MG TRANSDERMAL PATCH As Ordered ONE (14:02)
[2018-10-19] MEDS ORDERED: LR 1,000 ML IV ONE (14:30)
[2018-10-19] MEDS ORDERED: SCOPOLAMINE 1MG TRANSDERMAL PATCH TOP ONE (14:30)
[2018-10-19] MEDS ORDERED: OXYMETAZOLINE NASAL SPRAY (AFRIN) As Ordered ONE (14:33)
[2018-10-19] MEDS ORDERED: LIDOCAINE W/EPINEPHRINE 1% 20ML VIAL As Ordered ONE (14:33)
[2018-10-19] MEDS ORDERED: METHYLENE BLUE 0.5% (5MG/ML) 10 ML AMP (PROVAYBLUE)(Q9968 PER 1MG) As Ordered ONE (14:33)
[2018-10-19] MEDS ORDERED: PIPERACILLIN/TAZOBACTAM SOD 3.375 GM in D5W MINI-BAG PLUS 50 ML IV ONE (15:00)
[2018-10-19] MEDS ORDERED: ZOSYN 3.375 GM VIAL (J2543) As Ordered ONE (15:06)
[2018-10-19] MEDS ORDERED: ISOVUE-300 61% 50ML VIAL (Q9967) As Ordered ONE (15:19)
[2018-10-19] MEDS ORDERED: PHENYLephrine HCL 500 MCG/5 ML (100MCG/ML) SYRINGE (J2370) As Ordered ONE ×2 (15:51→16:05)
[2018-10-19] MEDS ORDERED: SUGAMMADEX SODIUM 500 MG/5 ML VIAL (BRIDION) As Ordered ONE (15:52)
[2018-10-19] MEDS ORDERED: EPINEPHrine 1MG/10ML SYRINGE 1.5IN As Ordered ONE (16:05)
[2018-10-19] MEDS ORDERED: METOCLOPRAMIDE INJ 10MG/2ML VIAL (J2765) As Ordered ONE (16:35)
[2018-10-19] MEDS ORDERED: fentaNYL 100 MCG/2 ML INJECTION (J3010) As Ordered ONE (16:42)
[2018-10-19] MEDS: fentaNYL 100 MCG/2 ML INJECTION (J3010) IV PRN ×3 (16:43→16:52)
--- NOTE | 2018-10-19 16:56 | ROOR ---
Patient Name: Malu Lerma Procedure Date: 10/19/2018 3:19 PM Date of : 1960 Age: 57 Room: [facility] Gender: Female Note Status: Finalized Procedure: ERCP Indications: Evaluation and possible treatment of bile duct stone(s), Follow-up of ascending cholangitis Providers: Solomon Kauffman MD Referring MD: SAM LEON MD Requesting Provider: Medicines: Monitored Anesthesia Care Complications: No immediate complications. Procedure: Pre-Anesthesia Assessment: - Prior to the procedure, a History and Physical was performed, and patient medications and allergies were reviewed. The patient is competent. The risks and benefits of the procedure and the sedation options and risks were discussed with the patient. All questions were answered and informed consent was obtained. Patient identification and proposed procedure were verified by the physician, the nurse and the anesthesiologist in the procedure room. Mental Status Examination: alert and oriented. Airway Examination: normal oropharyngeal airway and neck mobility. Respiratory Examination: clear to auscultation. CV Examination: normal. Prophylactic Antibiotics: The patient does not require prophylactic antibiotics. Prior Anticoagulants: The patient has taken no previous anticoagulant or antiplatelet agents. ASA Grade Assessment: III - A patient with severe systemic disease. After reviewing the risks and benefits, the patient was deemed in satisfactory condition to undergo the procedure. The anesthesia plan was to use monitored anesthesia care (MAC). Immediately prior to administration of medications, the patient was re-assessed for adequacy to receive sedatives. The heart rate, respiratory rate, oxygen saturations, blood pressure, adequacy of pulmonary ventilation, and response to care were monitored throughout the procedure. The physical status of the patient was re-assessed after the procedure. The Duodenoscope was introduced through the mouth, and advanced to the duodenum and used to inject contrast into the bile duct. The ERCP was accomplished without difficulty. The patient tolerated the procedure well. Findings: A biliary stent was visible on the solution lead film. The esophagus was successfully intubated under direct vision. The scope was advanced from the mouth to the duodenum. The pharynx, larynx and associated structures, as well as the upper GI tract, were normal. One plastic stent originating in the biliary tree was emerging from the major papilla. The stent was visibly patent. A biliary sphincterotomy had been performed. The sphincterotomy appeared stenosed or narrowed. A straight Roadrunner wire was passed into the biliary tree. The short-nosed traction sphincterotome was passed over the guidewire and the bile duct was then deeply cannulated. Contrast was injected. I personally interpreted the bile duct images. Ductal flow of contrast was adequate. Image quality was adequate. Contrast extended to the entire biliary tree. The main bile duct was moderately dilated, secondary to a stricture. The largest diameter was 10 mm. Biliary sphincterotomy was made with a monofilament traction (standard) sphincterotome using ERBE electrocautery. There was no post-sphincterotomy bleeding. The biliary tree was swept with a 9 mm balloon starting at the bifurcation. Nothing was found. Noted small amount of ozzing of blood after balloon sweeps. Epinephrine 1ml (concentration 1in 10,000) injected to achieve hemostasis. One 10 mm by 6 cm covered metal stent was placed into the common bile duct. Bile flowed through the stent. The stent was in good position. Impression: - One visibly patent stent from the biliary tree was seen in the major papilla. - Prior biliary sphincterotomy appeared stenosed or narrowed. - The entire main bile duct was moderately dilated, secondary to suspected stone versus stricture at distal CBD.. - A biliary sphincterotomy was performed. - The biliary tree was swept and nothing was found except debris. - Noted minimal oozing of blood after ballon sweep, so Epinephrine is injected. Biliary brushing is not done due to Oozing of blood with balloon sweep. - One covered metal stent was placed into the common bile duct. - No bleeding at the end of the procedure. Recommendation: - Avoid aspirin and nonsteroidal anti-inflammatory medicines. - The patient will be observed post-procedure, until all discharge criteria are met. - Clear liquid diet for 1 day, then advance as tolerated to resume regular diet. - Continue present medications. - Return to endoscopist for stent removal at [facility] endoscopy in 3 months. - Return to primary care physician. Solomon Kauffman MD Solomon Kauffman MD 10/19/2018 4:56:07 PM Electronically signed by Solomon Kauffman MD Number of Addenda: 0 Note Initiated On: 10/19/2018 3:19 PM Estimated Blood Loss: Estimated blood loss was minimal.
[2018-10-19] MEDS ORDERED: LR 1,000 ML IV SCH (17:00)
[2018-10-19] MEDS ORDERED: METOCLOPRAMIDE INJ 10MG/2ML VIAL (J2765) IV PRN (17:00)
[2018-10-19] MEDS ORDERED: PROMETHAZINE INJ 25 MG/ML VIAL (J2550) IV PRN (17:00)
[2018-10-19] MEDS ORDERED: oxyCODONE 5MG TAB PO PRN (17:00)
--- NOTE | 2018-10-19 17:05 | REP ---
ERCP exam: Five views. History: ERCP. Comparison study October 05, 2018. Findings: A sequence of five last image hold fluoroscopically obtained spot radiographs of the right upper quadrant document common bile duct cannulation, balloon catheter manipulation, and wall stent placement. The previous common bile duct stent has been removed. 1 minute 35 seconds of fluoroscopy time is reported. Electronically Signed by Petr Almaguer MD 10/20/2018 09:40 A
--- NOTE | 2018-10-19 18:11 | IPNPDOC ---
Date Seen The patient was seen on 10/19/18. Progress Note Brief history: 57-year-old female patient with HTN, DM type 2 ( Last Hba1c 10.8 in Nov 2017), left side nephrectomy for chronic renal stones in past, multiple ventral abdominal surgeries ( for hernia x 3) , NAFLD with hepatomegaly, underwent ERCP for CBD stone removal on 10/04/2018, later had cholangitis and had repeat ERCP with plastic stent placement on 10/05/2018, treated with antibiotics, infection resolved and later had laparoscopic cholecystectomy on 10/09/2018. Patient was later seen in Gi clinic. As patient was post cholecystectomy, wanted to have the repeat ERCP with stent removal CBD evaluation today as outpatient procedure. Patient tolerated procedure well. ( detailed procedure report in separate operative note). Patient was given empiric dose of Zosyn. Patient denies any new symptoms. Patient due to prior h/o cholangitis is being admitted for observation overnight post procedure. Patient denies any new GI symptoms. . Review of Systems: GI: as stated above CVS: No chest pain, No palpitations, No leg swelling. RS: No Shortness of breath, No Wheezing, no cough SOFTWARE CONSULTANT: No dizziness, No motor weakness, No sensory problems Hematology: No bruising, No gum bleeding, Musculoskeletal: No joint pain, ambulating well. Skin: No rash : No burning sensation ENT: No ear discharge/ pain, No dysphagia. Eyes: No photophobia. Home medications: reviewed. Antithrombotic agents - None Medical h/o: As above. Surgical h/o: as above. Social h/o: Alcohol- Social , tobacco- Denies , IVDA/ drugs- None . Family h/o of GI cancers -noncontributory Prior Endoscopies: --- EGD and Colonoscopy - in 08/25/2018 -- in [facility] by pa -- Regular Z line, moderate gastritis, normal duodenum. 1 duodenal diverticulum. Biopsies negative for H. pylori, celiac disease. Colonoscopy showed 8 mm tubular adenoma polyp at IC valve, for small hyperplastic polyps in rectosigmoid, severe diverticulosis (sigmoid to transverse colon), and hemorrhoids. ERCPs- as above. Prior GI evaluation: Follows with me in GI clinic. Exam: Vitals: reviewed General: Alert and oriented x 3, not in distress HEENT: NO pallor, no icterus. Normal oropharynx, NO cervical lymph nodes. Chest: symmetric with bilateral clear air entry, CVS: S1, S2 heard, normal, no murmurs . Abdomen: non-distended, prior surgical scars, soft, epigastric and right upper quadrant tenderness, no palpable masses, Good bowel sounds heard. Rectal exam: Patient refused / Extremities: no pedal edema, pulses palpable. SOFTWARE CONSULTANT: no focal motor or sensory deficits. Moves all extremities Skin: no rash. Labs: None in this admission. Imaging tests: reviewed with radiologist. Impression: - history of cholangitis s/p ERCP on 10/04/2018, require CBD plastic stent placement on 10/05/2018, now had elective repeat ERCP for CBD evaluation -- concern for papillary stenosis vs Sludge in CBD. S/p Covere metal stent placement. Needs observation post procedure to monitor for CBC, fever and empiric antibiotics Recommendations: - Patient educated about the test results, possible differential diagnoses and All questions answered. - IV antibiotics for prophylactic purposes for today and can be discharge on short course of oral Antibiotic for 3-5 days.. - NPO and IV hydration -- give adequate hydration and monitor for Intake and output. - Labs -- CBC, BMP today and again tomorrow 5 AM. - Monitor for any new symptoms. - Please update GI if any change in status. Plan of care discussed with patient and primary team. Patient verbalized understanding and agreed with the plan. VS, I&O, 24H, Fishbone Vital Signs/I&O Vital Signs Date Time Temp Pulse Resp B/P (MAP) Pulse Ox O2 Delivery O2 Flow Rate FiO2 10/19/18 17:10 85 14 113/65 (81) 98 10/19/18 16:55 98.6 Laboratory Data 24H LABS Laboratory Tests 2 10/19/18 14:26: Bedside Glucose (Misc Panel) 166H MIAN HOUSTON MD Oct 19, 2018 18:11
[2018-10-19] MEDS ORDERED: NALOXONE INJ 0.4 MG/1 ML VIAL (J2310) IV PRN (18:30)
[2018-10-19] MEDS ORDERED: PERCOCET 5MG/325MG TAB PO PRN ×2 (18:30)
[2018-10-19] MEDS ORDERED: MORPHINE 4 MG/ML 1ML VIAL/SYRINGE (J2270) IV PRN (18:30)
[2018-10-19] MEDS ORDERED: GLUCAGON FOR INJ 1 MG VIAL (J1610) SC PRN (18:30)
[2018-10-19] MEDS ORDERED: DEXTROSE 50% 50 ML SYRINGE IV PRN (18:30)
[2018-10-19] MEDS ORDERED: GLUCOSE 4 GM CHEW TABLET PO PRN (18:30)
[2018-10-19 18:50] VITALS: BP 144/81
[2018-10-19 19:14] LABS: BASO % 0.5 % (0.0-1.0); EOS % 0.5 % (0.0-3.0); HEMATOCRIT 40.8 % (36.0-47.0); HEMOGLOBIN 13.5 g/dl (12.0-15.5); LYMPH # 1.2 10^3/uL (1.5-4.5); LYMPH % 20.6 % (24.0-44.0); MEAN CORPUSCULAR HEMOGLOBIN 29.6 pg (27.0-33.0); MEAN CORPUSCULAR HGB CONC 33.1 g/dl (32.0-36.5); MEAN CORPUSCULAR VOLUME 89.5 fl (80.0-96.0); MONO # 0.2 10^3/uL (0.0-0.8); MONO % 2.9 % (0.0-5.0); NEUTROPHILS # 4.5 10^3/uL (1.8-7.7); PLATELET COUNT, AUTOMATED 478 10^3/uL (150-450); RED BLOOD COUNT 4.56 10^6/uL (4.00-5.40); WHITE BLOOD COUNT 5.9 10^3/uL (4.0-10.0)
[2018-10-19 19:20] VITALS: BP 129/82
[2018-10-19 19:34] LABS: BLOOD UREA NITROGEN 9 MG/DL (7-18); CALCIUM LEVEL 9.2 MG/DL (8.5-10.1); CARBON DIOXIDE LEVEL 30 MEQ/L (21-32); CHLORIDE LEVEL 104 MEQ/L (98-107); CREATININE FOR GFR 0.77 MG/DL (0.55-1.30); GLOMERULAR FILTRATION RATE > 60.0 (>51); GLUCOSE, FASTING 205 MG/DL (70-100); POTASSIUM SERUM 4.4 MEQ/L (3.5-5.1); SODIUM LEVEL 139 MEQ/L (136-145)
--- NOTE | 2018-10-19 19:40 | HPE ---
DATE OF ADMISSION: 10/19/2018 DRAG OUT WORKER: Dr. Kauffman CHIEF COMPLAINT: Status post stent placement due to cholangitis. 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 History of cholangitis, status post stent placement, sepsis, hypertension, type 2 diabetes, left-sided nephrectomy for chronic renal stones, multiple ventral abdominal hernias times three, non-alcoholic fatty liver disease with hepatomegaly and cholelithiasis who presented to [facility] for removal of stent which was placed per Dr. Kauffman. Patient underwent sphincterotomy to remove the stent however, there appeared to be a stricture and another stent had been placed. GI wanted the patient to be monitored overnight due to prior history of sepsis with Klebsiella bacteremia due to cholangitis status post ERCP. Patient currently has no fever, no chills. She has no abdominal pain and had received fentanyl in the recovery room. The patient is to be admitted overnight for further monitoring, status post stent placement and sphincterotomy. PAST MEDICAL HISTORY: Cholangitis. Sepsis Klebsiella bacteremia secondary to cholangitis. History of diabetes and hypertension. Left nephrectomy. Non-alcoholic fatty liver disease. History of kidney stones, status post left nephrectomy. Multiple ventral abdominal hernia surgeries times three. PAST SURGICAL HISTORY: Cholecystectomy. Nephrectomy for kidney stones. Multiple ventral abdominal surgeries. HOME MEDICATIONS: Please see below. ALLERGIES: Please see below. SOCIAL HISTORY: Quit smoking 6 years ago. One beer occasionally. Previously smoked less than a pack per week for about 20 years, quit 6 years ago. 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 FAMILY HISTORY: Mother is 73 with hypothyroidism, father with hypertension, diabetes, age 78. Younger brother with diabetes. REVIEW OF SYSTEMS: Patient currently denies fever or chills, weight changes, sore throat, ear ache, ear discharge, chest pain, pressure, tightness, lightheadedness, dizziness, shortness of breath, cough. Denies any nausea or vomiting. Has slight pain in the abdomen, status post sphincterotomy and stent placement. No dysuria, urgency or frequency. No upper or lower extremity paresthesias, joint pains or muscles aches. No history of anxiety or depression in the past. All other systems negative. PHYSICAL EXAMINATION: Temperature 97.3, pulse 83 sinus, respiratory 17, blood pressure 127/68, 94% on room air. GENERAL: Patient is awake, alert, oriented times three. Answers questions appropriately. Anicteric sclera. No jaundice. No use of respiratory accessory muscles. Moist mucous membranes. No cervical lymphadenopathy or thyromegaly. No jugular venous distention or carotid bruits. LUNGS: Clear to auscultation. No wheezing, rales or rhonchi. Air entry is equal bilaterally. No use of respiratory accessory muscles. Trachea is midline. HEART: S1, S2, sinus rhythm. Nondisplaced point of maximal impulse. No carotid bruits noted. No abdominal bruits noted. ABDOMEN: Soft, slightly tender in epigastrium. No rebound, no guarding. Positive bowel sounds in four quadrants. No hepatosplenomegaly. EXTREMITIES: No cyanosis, clubbing or pitting edema. LABORATORY DATA: Pending. ASSESSMENT AND PLAN: This is a 57-year-old female with history of cholangitis, status post cholecystectomy, Klebsiella bacteremia, status post stent placement, ERCP and was treated with intravenous Invanz for ascending cholangitis with Klebsiella bacteremia, status post ERCP and status post cholecystectomy. Patient was changed over to Levaquin for 7 more days as outpatient for a 10 day course of antibiotics and was discharged home. IMPRESSION: 1. History of ascending cholangitis with Klebsiella bacteremia, status post ERCP with stent placement. Stent had been removed, however, there was a stricture and a second stent was placed. Management per primary team, currently on IV Zosyn renally dosed by pharmacy and admission overnight to rule out sepsis. The patient will be given IV fluids, advance diet as tolerated per GI to consistent carbohydrate. 2. Type 2 diabetes. Hold patient's metformin. Diet will be advanced per GI recommendations. Continue on sliding scale hypoglycemic protocol before food, at bedtime fingersticks and hypoglycemic protocol. 3. Hypertension. Continue on metoprolol. 4. Elevated liver function tests secondary to cholangitis. DISPOSITION: Discharge in the morning if stable overnight. DVT prophylaxis with compression stockings in light of recent sphincterotomy and increased risk of bleeding. Lovenox and heparin has not been started. MTDD
[2018-10-19] MEDS: MULTIVITAMINS/MINERALS THERAP 1 TAB PO SCH (19:45)
[2018-10-19 20:20] VITALS: BP 113/72
[2018-10-19] MEDS ORDERED: PIPERACILLIN/TAZOBACTAM SOD 4.5 GM in D5W MINI-BAG PLUS 50 ML IV SCH (21:00)
[2018-10-19] MEDS ORDERED: HumaLOG INSULIN (NovoLOG) PER UNIT SC SCH (21:00)
[2018-10-19] MEDS: GABAPENTIN 300 MG CAP PO SCH (21:01)
[2018-10-19] MEDS: METOPROLOL TART 25 MG TABLET PO SCH (21:02)
[2018-10-19 21:20] VITALS: BP 123/72
[2018-10-19] MEDS ORDERED: ONDANSETRON 4MG/2ML VIAL (J2405) IV PRN (21:30)
[2018-10-19] MEDS ORDERED: ACETAMINOPHEN TAB 650MG DOSE (2X325MG) PO PRN (21:30)
[2018-10-19 22:20] VITALS: BP 125/75
[2018-10-19] MEDS: PIPERACILLIN/TAZOBACTAM SOD 3.375 GM in D5W MINI-BAG PLUS 50 ML IV SCH (22:52)
[2018-10-19 23:20] VITALS: BP 119/74
[2018-10-20 02:00] VITALS: BP 121/72
[2018-10-20] MEDS: LR 1,000 ML IV SCH ×2 (02:39→03:45)
[2018-10-20] MEDS: PIPERACILLIN/TAZOBACTAM SOD 3.375 GM in D5W MINI-BAG PLUS 50 ML IV SCH ×2 (04:05→10:00)
[2018-10-20 05:29] LABS: BASO % 0.6 % (0.0-1.0); EOS % 0.3 % (0.0-3.0); HEMATOCRIT 39.2 % (36.0-47.0); HEMOGLOBIN 12.8 g/dl (12.0-15.5); LYMPH # 1.8 10^3/uL (1.5-4.5); LYMPH % 27.1 % (24.0-44.0); MEAN CORPUSCULAR HEMOGLOBIN 29.4 pg (27.0-33.0); MEAN CORPUSCULAR HGB CONC 32.7 g/dl (32.0-36.5); MEAN CORPUSCULAR VOLUME 89.9 fl (80.0-96.0); MONO # 0.4 10^3/uL (0.0-0.8); MONO % 5.7 % (0.0-5.0); NEUTROPHILS # 4.4 10^3/uL (1.8-7.7); NEUTROPHILS % 65.9 % (36.0-66.0); PLATELET COUNT, AUTOMATED 485 10^3/uL (150-450); RED BLOOD COUNT 4.36 10^6/uL (4.00-5.40); WHITE BLOOD COUNT 6.7 10^3/uL (4.0-10.0)
[2018-10-20 05:45] LABS: BLOOD UREA NITROGEN 9 MG/DL (7-18); GLOMERULAR FILTRATION RATE > 60.0 (>51)
[2018-10-20 05:51] LABS: BILIRUBIN,DIRECT 0.3 MG/DL (0.0-0.2); BILIRUBIN,TOTAL 0.4 MG/DL (0.2-1.0); TOTAL PROTEIN 6.6 GM/DL (6.4-8.2)
[2018-10-20 06:00] VITALS: BP 129/60
[2018-10-20] MEDS ORDERED: BACITAB PO (06:23)
[2018-10-20] MEDS ORDERED: CIPR-249 PO (06:23)
[2018-10-20] MEDS ORDERED: SENO8.6T10 PO (06:25)
[2018-10-20] MEDS ORDERED: PERC5TAB12 PO ×2 (06:25→06:27)
[2018-10-20] MEDS ORDERED: HumaLOG INSULIN (NovoLOG) PER UNIT SC SCH (07:30)
[2018-10-20] MEDS ORDERED: OMEPRAZOLE 20 MG CAP PO SCH (09:00)
[2018-10-20 09:27] VITALS: BP 124/64
[2018-10-20] MEDS: GABAPENTIN 300 MG CAP PO SCH (09:27)
[2018-10-20] MEDS: MULTIVITAMINS/MINERALS THERAP 1 TAB PO SCH (09:27)
[2018-10-20] MEDS: METOPROLOL TART 25 MG TABLET PO SCH (09:27)
[2018-10-20 10:00] VITALS: BP 128/83
--- NOTE | 2018-10-20 18:08 | DS.PDOC ---
Discharge Summary General Date of Admission Oct 19, 2018 at 17:23 Date of Discharge OCT 20, 2018 Discharge Summary THEATER PROJECTIONIST: DR KAUFFMAN DISCHARGE DIAGNOSES: history of cholangitis s/p ERCP on 10/04/2018, S/P CBD plastic stent placement on 10/05/2018, S/P 10/19/18 elective repeat ERCP for CBD evaluation - 10/19/18 papillary stenosis vs Sludge in CBD on ERCP 10/19/18 S/p Covere metal stent placement. DISCHARGE MEDICATIONS:PLS SEE BELOW DISCHARGE INSTRUCTIONS: CYNDEE KAUFFMAN IN 1 WK, PCP WITHIN 5 DAYS, DIET PER GI-FULL LIQUIDS HISTORY OF PRESENTING ILLNESS: This is a 57-year-old female with history of cholangitis, status post cholecystectomy, Klebsiella bacteremia, status post stent placement, ERCP and was treated with intravenous Invanz for ascending cholangitis with Klebsiella bacteremia, status post ERCP and status post cholecystectomy. Patient was changed over to Levaquin for 7 more days as outpatient for a 10 day course of antibiotics and was discharged home. HOSPITAL COURSE: History of ascending cholangitis with Klebsiella bacteremia, status post ERCP with stent placement. Stent had been removed, however, there was a stricture and a second stent was placed. history of cholangitis s/p ERCP on 10/04/2018, S/P CBD plastic stent placement on 10/05/2018, S/P 10/19/18 elective repeat ERCP for CBD evaluation - 10/19/18 papillary stenosis vs Sludge in CBD on ERCP 10/19/18 S/p Covere metal stent placement. given IV Zosynrenally dosed by pharmacy and admission overnight to rule out sepsis. The patient was given IV fluids, advance diet as tolerated per GI Type 2 diabetes. Hold patient's metformin. Diet will be advanced per GI recommendations. Continue on sliding scale hypoglycemic protocol before food, at bedtime fingersticks and hypoglycemic protocol. Hypertension. Continued on metoprolol. Elevated liver function tests secondary to cholangitis. LABORATORY DATA, MICROBIOLOGY, IMAGING STUDIES: PLS SEE BELOW PROCEDURES PERFORMED DURING STAY: rocedure: ERCP Indications: Evaluation and possible treatment of bile duct stone(s), Follow-up of ascending cholangitis Providers: Solomon Kauffman MD Referring MD: SAM LEON MD Requesting Provider: Medicines: Monitored Anesthesia Care Complications: No immediate complications. Procedure: Pre-Anesthesia Assessment: - Prior to the procedure, a History and Physical was performed, and patient medications and allergies were reviewed. The patient is competent. The risks and benefits of the procedure and the sedation options and risks were discussed with the patient. All questions were answered and informed consent was obtained. Patient identification and proposed procedure were verified by the physician, the nurse and the anesthesiologist in the procedure room. Mental Status Examination: alert and oriented. Airway Examination: normal oropharyngeal airway and neck mobility. Respiratory Examination: clear to auscultation. CV Examination: normal. Prophylactic Antibiotics: The patient does not require prophylactic antibiotics. Prior Anticoagulants: The patient has taken no previous anticoagulant or antiplatelet agents. ASA Grade Assessment: III - A patient with severe systemic disease. After reviewing the risks and benefits, the patient was deemed in satisfactory condition to undergo the procedure. The anesthesia plan was to use monitored anesthesia care (MAC). Immediately prior to administration of medications, the patient was re-assessed for adequacy to receive sedatives. The heart rate, respiratory rate, oxygen saturations, blood pressure, adequacy of pulmonary ventilation, and response to care were monitored throughout the procedure. The physical status of the patient was re-assessed after the procedure. The Duodenoscope was introduced through the mouth, and advanced to the duodenum and used to inject contrast into the bile duct. The ERCP was accomplished without difficulty. The patient tolerated the procedure well. Findings: A biliary stent was visible on the log yard manager film. The esophagus was successfully intubated under direct vision. The scope was advanced from the mouth to the duodenum. The pharynx, larynx and associated structures, as well as the upper GI tract, were normal. One plastic stent originating in the biliary tree was emerging from the major papilla. The stent was visibly patent. A biliary sphincterotomy had been performed. The sphincterotomy appeared stenosed or narrowed. A straight Roadrunner wire was passed into the biliary tree. The short-nosed traction sphincterotome was passed over the guidewire and the bile duct was then deeply cannulated. Contrast was injected. I personally interpreted the bile duct images. Ductal flow of contrast was adequate. Image quality was adequate. Contrast extended to the entire biliary tree. The main bile duct was moderately dilated, secondary to a stricture. The largest diameter was 10 mm. Biliary sphincterotomy was made with a monofilament traction (standard) sphincterotome using ERBE electrocautery. There was no post-sphincterotomy bleeding. The biliary tree was swept with a 9 mm balloon starting at the bifurcation. Nothing was found. Noted small amount of ozzing of blood after balloon sweeps. Epinephrine 1ml (concentration 1in 10,000) injected to achieve hemostasis. One 10 mm by 6 cm covered metal stent was placed into the common bile duct. Bile flowed through the stent. The stent was in good position. Impression: - One visibly patent stent from the biliary tree was seen in the major papilla. - Prior biliary sphincterotomy appeared stenosed or narrowed. - The entire main bile duct was moderately dilated, secondary to suspected stone versus stricture at distal CBD.. - A biliary sphincterotomy was performed. - The biliary tree was swept and nothing was found except debris. - Noted minimal oozing of blood after ballon sweep, so Epinephrine is injected. Biliary brushing is not done due to Oozing of blood with balloon sweep. - One covered metal stent was placed into the common bile duct. - No bleeding at the end of the procedure. Recommendation: - Avoid aspirin and nonsteroidal anti-inflammatory medicines. - The patient will be observed post-procedure, until all discharge criteria are met. - Clear liquid diet for 1 day, then advance as tolerated to resume regular diet. - Continue present medications. - Return to endoscopist for stent removal at [facility]GI endoscopy in 3 months. - Return to primary care physician. Solomon Kauffman MD Solomon Kauffman MD 10/19/2018 4:56:07 PM Electronically signed by Solomon Kauffman MD Number of Addenda: 0 Note Initiated On: 10/19/2018 3:19 PM Estimated Blood Loss: Estimated blood loss was minimal. DD: SOLOMON KAUFFMAN MD 10/19/18 1519 DT: MARLY 10/19/18 1519 DS: CASSY 10/19/18 1656 10/19/18 932 DS2: TIME SPENT ON DISCHARGE: 32 MINUTES Vital Signs/I&Os Vital Signs Date Time Temp Pulse Resp B/P (MAP) Pulse Ox O2 Delivery O2 Flow Rate FiO2 10/20/18 09:27 74 124/64 10/20/18 06:00 96.5 15 98 I&O- Last 24 Hours up to 6 AM 10/20/18 06:00 Intake Total 3090 ml Output Total 100 ml Balance 2990 ml Laboratory Data Labs 24H Laboratory Tests 2 10/19/18 14:26: Bedside Glucose (Misc Panel) 166H 10/19/18 18:57: Immature Granulocyte % (Auto) 0.5, White Blood Count 5.9, Red Blood Count 4.56, Hemoglobin 13.5, Hematocrit 40.8, Mean Corpuscular Volume 89.5, Mean Corpuscular Hemoglobin 29.6, Mean Corpuscular Hemoglobin Concent 33.1, Red Cell Distribution Width 11.5, Platelet Count 478H, Neutrophils (%) (Auto) 75.0H, Lymphocytes (%) (Auto) 20.6L, Monocytes (%) (Auto) 2.9, Eosinophils (%) (Auto) 0.5, Basophils (%) (Auto) 0.5, Neutrophils # (Auto) 4.5, Lymphocytes # (Auto) 1.2L, Monocytes # (Auto) 0.2, Eosinophils # (Auto) 0.0, Basophils # (Auto) 0.0, Nucleated Red Bloo d Cells % (auto) 0.0, Anion Gap 5L, Glomerular Filtration Rate > 60.0, Lactic Acid Level 1.3, Blood Urea Nitrogen 9, Creatinine 0.77, Sodium Level 139, Potassium Level 4.4, Chloride Level 104, Carbon Dioxide Level 30, Calcium Level 9.2 10/20/18 04:39: Immature Granulocyte % (Auto) 0.4, White Blood Count 6.7, Red Blood Count 4.36, Hemoglobin 12.8, Hematocrit 39.2, Mean Corpuscular Volume 89.9, Mean Corpuscular Hemoglobin 29.4, Mean Corpuscular Hemoglobin Concent 32.7, Red Cell Distribution Width 11.5, Platelet Count 485H, Neutrophils (%) (Auto) 65.9, Lymphocytes (%) (Auto) 27.1, Monocytes (%) (Auto) 5.7H, Eosinophils (%) (Auto) 0.3, Basophils (%) (Auto) 0.6, Neutrophils # (Auto) 4.4, Lymphocytes # (Auto) 1.8, Monocytes # (Auto) 0.4, Eosinophils # (Auto) 0.0, Basophils # (Auto) 0.0, Nucleated Red Blood Cells % (auto) 0.0, Glomerular Filtration Rate > 60.0, Aspartate Amino Transf (AST/SGOT) 21, Alanine Aminotransferase (ALT/SGPT) 52, Alkaline Phosphatase 110, Total Bilirubin 0.4, Direct Bilirubin 0.3H, Total Protein 6.6, Albumin 3.0L, Albumin/Globulin Ratio 0.83L 10/20/18 08:33: Bedside Glucose (Misc Panel) 208H CBC/BMP Laboratory Tests 10/19/18 18:57 Red Blood Count 4.56, Mean Corpuscular Volume 89.5, Mean Corpuscular Hemoglobin 29.6, Mean Corpuscular Hemoglobin Concent 33.1, Red Cell Distribution Width 11.5, Neutrophils (%) (Auto) 75.0 H, Lymphocytes (%) (Auto) 20.6 L, Monocytes (%) (Auto) 2.9, Eosinophils (%) (Auto) 0.5, Basophils (%) (Auto) 0.5, Neutrophils # (Auto) 4.5, Lymphocytes # (Auto) 1.2 L, Monocytes # (Auto) 0.2, Eosinophils # (Auto) 0.0, Basophils # (Auto) 0.0, Calcium Level 9.2 10/20/18 04:39 Red Blood Count 4.36, Mean Corpuscular Volume 89.9, Mean Corpuscular Hemoglobin 29.4, Mean Corpuscular Hemoglobin Concent 32.7, Red Cell Distribution Width 11.5, Neutrophils (%) (Auto) 65.9, Lymphocytes (%) (Auto) 27.1, Monocytes (%) (Auto) 5.7 H, Eosinophils (%) (Auto) 0.3, Basophils (%) (Auto) 0.6, Neutrophils # (Auto) 4.4, Lymphocytes # (Auto) 1.8, Monocytes # (Auto) 0.4, Eosinophils # (Auto) 0.0, Basophils # (Auto) 0.0 FSBS Laboratory Tests Test 10/19/18 14:26 10/20/18 08:33 Range/Units Bedside Glucose (Misc Panel) 166 208 70-105 MG/DL Discharge Medications Scheduled Calcium Carbonate (Calcium) 600 Mg Tablet, 1,200 MG PO DAILY, (Reported) Cholecalciferol (Vitamin D3) (Vitamin D3) 5,000 Unit Capsule, 5,000 UNIT PO DAILY, (Reported) Ciprofloxacin HCl (Cipro) 500 Mg Tablet, 500 MG PO BID Gabapentin (Neurontin) 300 Mg Capsule, 300 MG PO BID, (Reported) L.acidoph/L.bulg/B.bif/S.therm (Bacid Caplet) 1 Each Tablet, 1 TAB PO [facility] Lactobacillus Acidophilus (Acidophilus) 1 Each Capsule, 1 CAP PO DAILY Metformin HCl (Metformin HCl) 500 Mg Tablet, 500 MG PO TID, (Reported) ON HOLD UNTIL TUESDAY BECAUSE OF CONTRAST DYE Metoprolol Tartrate (Metoprolol Tartrate) 25 Mg Tablet, 25 MG PO BID, (Reported) Multivitamins (Thera M Plus Tablet) 1 Each Tablet, 1 TAB PO DAILY, (Reported) Omeprazole (Omeprazole) 40 Mg Capsule.dr, 40 MG PO DAILY, (Reported) Scheduled PRN Oxycodone HCl/Acetaminophen (Percocet 5-325 mg Tablet) 1 Each Tablet, 1-2 TAB PO Q4-6HP PRN for BOWEL CARE/CONSTIPATION Oxycodone/Acetaminophen (Oxycodone-Acetaminophen 5-325) 1 Each Tablet, 1 TAB PO BIDP PRN for PAIN, (Reported) Sennosides/Docusate Sodium (Senokot-S Tablet) 1 Each Tablet, 1 TAB PO BID PRN for BOWEL CARE/CONSTIPATION Allergies Coded Allergies: tetanus immune globulin (Verified Adverse Reaction, Mild, redness, 10/19/18) BOB VERAS MD Oct 20, 2018 10:35
== END 2018-10-20 11:08 | disposition home or self-care (01) ==
LOC: M SDC 13:43 → M ED INP 17:23 → M MSPAV 18:44
PROVIDERS: ADMIT Internal Medicine Gastroenterology; ATTEND General Practice
DX: K83.09 Other cholangitis (principal); Z96.89 Presence of other specified functional implants; K80.30 Calculus of bile duct with cholangitis, unspecified, without obstruction; K76.0 Fatty (change of) liver, not elsewhere classified; E11.9 Type 2 diabetes mellitus without complications; I10 Essential (primary) hypertension; Z87.891 Personal history of nicotine dependence; Z79.84 Long term (current) use of oral hypoglycemic drugs; R94.5 Abnormal results of liver function studies; K21.9 Gastro-esophageal reflux disease without esophagitis; Z88.7 Allergy status to serum and vaccine; Z79.899 Other long term (current) drug therapy
CPT/HCPCS: 36415; 43276; 74330; 80048; 80076; 82565; 83605; 84520; 85025; 86850; 86900; 86901; 96374; 97161; C1876; C1887; J1100; J2250; J2370; J2405; J2543; J2765; J3010; Q9967

== ENCOUNTER → 2018-11-15 | Outpatient (CLI) | payer BC ==
[~2018-11-15] MED LIST changes: +BACITAB PO; +CIPR-249 PO; -LIDOCAINE 1% MDV 20ML VIAL SQ PRN; -LIDOCAINE 2% INJ 100 MG/5 ML SDV (FOR ANES.) As Ordered ONE; -MIDAZOLAM INJ 2 MG/2 ML VIAL (J2250) As Ordered ONE; -NS 1,000 ML IV ONE; -ONDANSETRON 4MG/2ML VIAL (J2405) As Ordered ONE; +PERC5TAB12 PO; -PROPOFOL 200 MG/20 ML VIAL As Ordered ONE; -ROCURONIUM BROMIDE 50 MG/5 ML VIAL As Ordered ONE; +SENO8.6T10 PO; -dexameTHASONE 4 MG/ML 1ML VIAL (J1100) As Ordered ONE; -fentaNYL 100 MCG/2 ML INJECTION (J3010) As Ordered ONE
[2018-11-15 16:23] LABS: APPEARANCE, URINE CLEAR (CLEAR); BACTERIA, URINE AUTO 1+ (NEGATIVE); BILIRUBIN, URINE AUTO NEGATIVE (NEGATIVE); BLOOD, URINE BLOOD 1+ (NEGATIVE); COLOR, URINE YELLOW (YELLOW); GLUCOSE, URINE (UA) AUTO 2+ mg/dL (NEGATIVE); KETONE, URINE AUTO NEGATIVE (NEGATIVE); LEUKOCYTE ESTERASE, URINE AUTO NEGATIVE (NEGATIVE); NITRITE, URINE AUTO NEGATIVE (NEGATIVE); PROTEIN, URINE AUTO NEGATIVE (NEGATIVE); RBC, URINE AUTO 2 /HPF (0-3); SPECIFIC GRAVITY URINE AUTO 1.008 (1.002-1.035); SQUAMOUS EPITHELIAL CELL UR AU 0 /HPF (0-6); UROBILINOGEN, URINE AUTO 0.2 mg/dL (0.0-2.0); WBC, URINE AUTO 0 /HPF (0-3)
[2018-11-15 16:24] LABS: BASO % 0.5 % (0.0-1.0); EOS # 0.2 10^3/uL (0.0-0.50); EOS % 1.7 % (0.0-3.0); HEMATOCRIT 40.9 % (36.0-47.0); HEMOGLOBIN 13.6 g/dl (12.0-15.5); LYMPH # 2.2 10^3/uL (1.5-4.5); LYMPH % 25.4 % (24.0-44.0); MEAN CORPUSCULAR HGB CONC 33.3 g/dl (32.0-36.5); MEAN CORPUSCULAR VOLUME 90.3 fl (80.0-96.0); MONO # 0.7 10^3/uL (0.0-0.8); MONO % 7.7 % (0.0-5.0); NEUTROPHILS # 5.7 10^3/uL (1.8-7.7); NEUTROPHILS % 64.4 % (36.0-66.0); PLATELET COUNT, AUTOMATED 299 10^3/uL (150-450); RED BLOOD COUNT 4.53 10^6/uL (4.00-5.40); WHITE BLOOD COUNT 8.8 10^3/uL (4.0-10.0)
[2018-11-15 16:50] LABS: ALBUMIN 3.5 GM/DL (3.2-5.2); ALT/SGPT 61 U/L (12-78); BILIRUBIN,DIRECT 0.2 MG/DL (0.0-0.2); BILIRUBIN,TOTAL 0.6 MG/DL (0.2-1.0); BLOOD UREA NITROGEN 10 MG/DL (7-18); CALCIUM LEVEL 9.9 MG/DL (8.5-10.1); CARBON DIOXIDE LEVEL 27 MEQ/L (21-32); CHLORIDE LEVEL 99 MEQ/L (98-107); GLOMERULAR FILTRATION RATE > 60.0 (>51); GLUCOSE, FASTING 259 MG/DL (70-100); LIPASE 367 U/L (73-393); POTASSIUM SERUM 4.1 MEQ/L (3.5-5.1); SODIUM LEVEL 133 MEQ/L (136-145); TOTAL PROTEIN 7.3 GM/DL (6.4-8.2)
== END ==
LOC: M LAB 15:40
PROVIDERS: ATTEND Internal Medicine Gastroenterology
DX: R10.30 Lower abdominal pain, unspecified (principal)

== ENCOUNTER → 2018-12-25 | Outpatient (CLI) | payer BC ==
--- NOTE | 2018-12-25 11:17 | REP ---
Supine abdomen two views: The upper abdomen is excluded on both views. I suspect that the common biliary duct stent is excluded from the study. I would recommend a repeat study to include the upper abdomen and diaphragms. The visualized bowel gas pattern is normal. There are are surgical clips in the abdomen on the right and surgical clips in the pelvis. There is degenerative disc disease in the lumbar spine. Impression: No CBD stent is identified, however, there is possibly excluded at the superior film margins. Recommend repeat study to include the diaphragms. Electronically Signed by Michael Kenney MD 12/25/2018 11:07 A
== END ==
LOC: M RAD 10:45
PROVIDERS: ATTEND Internal Medicine Gastroenterology
DX: K80.50 Calculus of bile duct without cholangitis or cholecystitis without obstruction (principal)

== ENCOUNTER → 2019-01-01 | Outpatient (CLI) | payer BC ==
[~2019-01-01] MED LIST changes: -OMEP40CA2 PO; +OMEP40CA97 PO
--- NOTE | 2019-01-01 17:19 | REP ---
Two-view chest x-ray: 01/01/2019. Indication: Dyspnea. Comparison: 02/07/2017. Findings: The lungs are clear. Cardiac silhouette is normal. There is no pneumothorax or pleural effusion. Impression: No acute cardiopulmonary process. Electronically Signed by Sigifredo Fuentes DO 01/01/2019 05:10 P
== END ==
LOC: M RAD 15:23
PROVIDERS: ATTEND Family Medicine
DX: J18.9 Pneumonia, unspecified organism (principal)

== ENCOUNTER → 2019-01-30 | Outpatient (CLI) | payer BC ==
[2019-01-30 18:31] LABS: HEMOGLOBIN A1c 10.5 %
[2019-01-30 18:32] LABS: ALBUMIN 3.7 GM/DL (3.2-5.2); ALT/SGPT 36 U/L (12-78); BILIRUBIN,DIRECT 0.1 MG/DL (0.0-0.2); BILIRUBIN,TOTAL 0.4 MG/DL (0.2-1.0); FERRITIN 350 NG/ML (8-252); IRON (FE) 49 UG/DL (50-170); TOTAL IRON BINDING CAPACITY 306 UG/DL (250-450); TOTAL PROTEIN 7.8 GM/DL (6.4-8.2)
[2019-01-31 09:38] LABS: HEPATITIS B SURFACE ANTIBODY NEGATIVE (POSITIVE)
[2019-01-31 09:48] LABS: HEPATITIS B SURFACE ANTIGEN NEGATIVE (NEGATIVE)
== END ==
LOC: M LAB 16:35
PROVIDERS: ATTEND Internal Medicine Gastroenterology
DX: K80.31 Calculus of bile duct with cholangitis, unspecified, with obstruction (principal)

== ENCOUNTER 2019-02-21 08:15 | Emergency (ER) | payer OTHER, BC ==
[2019-02-21] MEDS ORDERED: NS 1,000 ML IV ONE (08:45)
[2019-02-21] MEDS ORDERED: MORPHINE 2 MG/ML 1ML VIAL (J2270) IV PRN (08:45)
[2019-02-21] MEDS ORDERED: ONDANSETRON 4MG/2ML VIAL (J2405) IV ONE (08:45)
[2019-02-21] MEDS ORDERED: ISOVUE-370 76% 100ML VIAL (Q9967) As Ordered ONE (08:48)
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
--- NOTE | 2019-02-21 09:45 | REP ---
CT cervical spine: 02/21/2019. Indication: Cervical spine trauma. Comparison: None. Technique: Unenhanced axial images of the cervical spine were obtained with coronal and sagittal reconstructions provided. Findings: There is no acute fracture, subluxation or dislocation. There is straightening of the cervical lordosis which is likely positional. Spondylosis is noted most pronounced at C5/C6 without severe spinal canal narrowing detected. There is no hemorrhage or additional acute post traumatic pathology within the spinal canal. Low attenuating 6 mm right thyroid nodule is noted which is likely benign. Impression: No acute osseous injury of the cervical spine. Electronically Signed by Sigifredo Fuentes DO 02/21/2019 09:37 A
[2019-02-21] MEDS ORDERED: NORC1TAB7 PO (10:22)
[2019-02-21] MEDS ORDERED: CYCL5TAB PO (10:22)
[2019-02-21 10:32] VITALS: BP 168/101
== END 2019-02-21 10:34 | disposition home or self-care (01) ==
LOC: M ED 08:15 → EDBD 08:15 → M ED 10:34
DX: M62.838 Other muscle spasm (principal); V49.40XA Driver injured in collision with unspecified motor vehicles in traffic accident, initial encounter; M43.06 Spondylolysis, lumbar region; R16.0 Hepatomegaly, not elsewhere classified; K76.0 Fatty (change of) liver, not elsewhere classified; Z90.49 Acquired absence of other specified parts of digestive tract; E11.9 Type 2 diabetes mellitus without complications; I10 Essential (primary) hypertension; F17.210 Nicotine dependence, cigarettes, uncomplicated; Z88.7 Allergy status to serum and vaccine; Z79.84 Long term (current) use of oral hypoglycemic drugs; Z79.899 Other long term (current) drug therapy
CPT/HCPCS: 70450; 71260; 72125; 74177; 80047; 96361; 96374; 96375; 99284; J2270; J2405; Q9967

== ENCOUNTER → 2019-06-11 | Outpatient (CLI) | payer BC ==
[~2019-06-11] MED LIST changes: +CYCL5TAB PO; +NORC1TAB7 PO
[2019-06-11 08:08] LABS: ALBUMIN 3.6 GM/DL (3.2-5.2); BILIRUBIN,DIRECT 0.1 MG/DL (0.0-0.2); BILIRUBIN,TOTAL 0.4 MG/DL (0.2-1.0); CHOLESTEROL RISK RATIO 5.121 (<5); TOTAL PROTEIN 7.5 GM/DL (6.4-8.2)
== END ==
LOC: M LAB 07:01
PROVIDERS: ATTEND Internal Medicine Gastroenterology
DX: K76.0 Fatty (change of) liver, not elsewhere classified (principal)

== ENCOUNTER → 2019-06-11 | Outpatient (CLI) | payer BC ==
[2019-06-11 07:43] LABS: HEMATOCRIT 46.6 % (36.0-47.0); HEMOGLOBIN 15.8 g/dl (12.0-15.5); MEAN CORPUSCULAR HEMOGLOBIN 30.3 pg (27.0-33.0); MEAN CORPUSCULAR HGB CONC 33.9 g/dl (32.0-36.5); MEAN CORPUSCULAR VOLUME 89.4 fl (80.0-96.0); PLATELET COUNT, AUTOMATED 212 10^3/uL (150-450); RED BLOOD COUNT 5.21 10^6/uL (4.00-5.40)
[2019-06-11 07:59] LABS: HEMOGLOBIN A1c 11.4 %
[2019-06-11 08:18] LABS: ALBUMIN 3.7 GM/DL (3.2-5.2); ALT/SGPT 68 U/L (12-78); BILIRUBIN,TOTAL 0.6 MG/DL (0.2-1.0); BLOOD UREA NITROGEN 13 MG/DL (7-18); CALCIUM LEVEL 9.6 MG/DL (8.5-10.1); CARBON DIOXIDE LEVEL 29 MEQ/L (21-32); CHLORIDE LEVEL 99 MEQ/L (98-107); CHOLESTEROL LEVEL 213 MG/DL (<200); CHOLESTEROL RISK RATIO 5.325 (<5); CREATININE FOR GFR 0.76 MG/DL (0.55-1.30); GLOMERULAR FILTRATION RATE > 60.0 (>51); GLUCOSE, FASTING 292 MG/DL (70-100); HDL CHOLESTEROL 40 MG/DL (>40); LDL CHOLESTEROL 107 MG/DL (<100); NON-HDL-C 173 MG/DL; POTASSIUM SERUM 4.1 MEQ/L (3.5-5.1); SODIUM LEVEL 134 MEQ/L (136-145); TOTAL PROTEIN 7.5 GM/DL (6.4-8.2); TRIGLYCERIDES LEVEL 331 MG/DL (<150)
== END ==
LOC: M LAB 07:03
PROVIDERS: ATTEND Family Medicine
DX: I10 Essential (primary) hypertension (principal); E11.9 Type 2 diabetes mellitus without complications

== ENCOUNTER → 2019-07-02 | Outpatient (CLI) | payer BC ==
--- NOTE | 2019-07-02 09:36 | REP ---
Clinical: Right upper quadrant pain. Technique: Real time chen scale and color Doppler ultrasound examination using curved array transducer. Findings: Liver is increased echogenicity with poor through transmission suggesting fatty infiltration. Visualized portions of the pancreas are normal but limited due to interposed bowel gas. Spleen is normal in size and echogenicity without focal splenic lesion identified measuring 11.4 cm maximal length. Left kidney is absent. Right kidney is normal and measures 13.9 x 6.5 x 6.8 cm. Gallbladder is not visualized and consistent with prior cholecystectomy. No ascites. Visualized portions of the abdominal aorta appear normal. Color Doppler examination demonstrates normal main and left portal vein flow direction and wave pattern with peak velocity at 26 cm/sec. Main portal vein measures 11 mm diameter. Remainder of the vascular structures are incompletely evaluated due to interposed bowel gas and technical factors/body habitus. Impression: 1. Hepatosteatosis. 2. Evidence for prior cholecystectomy and absent left kidney. Electronically Signed by Gaston Hernandez MD 07/02/2019 09:27 A
== END ==
LOC: M RAD 08:23
PROVIDERS: ATTEND Internal Medicine Gastroenterology
DX: R10.11 Right upper quadrant pain (principal); K80.31 Calculus of bile duct with cholangitis, unspecified, with obstruction; K76.0 Fatty (change of) liver, not elsewhere classified; Z90.49 Acquired absence of other specified parts of digestive tract; Z90.5 Acquired absence of kidney

== ENCOUNTER → 2021-02-13 | Outpatient (CLI) | payer BC ==
[~2021-02-13] MED LIST changes: +ACET650T61 PO; +GABA-283 PO; -GABA-845 PO; +OMEP40CA4 PO; -OMEP40CA97 PO; -TYLE650T35 PO
[2021-02-13 09:59] LABS: HEMATOCRIT 50.5 % (36.0-47.0); HEMOGLOBIN 16.6 g/dl (12.0-15.5); MEAN CORPUSCULAR HEMOGLOBIN 30.3 pg (27.0-33.0); MEAN CORPUSCULAR HGB CONC 32.9 g/dl (32.0-36.5); MEAN CORPUSCULAR VOLUME 92.2 fl (80.0-96.0); PLATELET COUNT, AUTOMATED 262 10^3/uL (150-450); RED BLOOD COUNT 5.48 10^6/uL (4.00-5.40)
[2021-02-13 10:19] LABS: ALBUMIN 3.7 GM/DL (3.2-5.2); ALT/SGPT 56 U/L (12-78); BILIRUBIN,TOTAL 0.4 MG/DL (0.2-1.0); BLOOD UREA NITROGEN 11 MG/DL (7-18); CALCIUM LEVEL 9.6 MG/DL (8.5-10.1); CARBON DIOXIDE LEVEL 28 MEQ/L (21-32); CHLORIDE LEVEL 102 MEQ/L (98-107); CHOLESTEROL LEVEL 220 MG/DL (<200); CHOLESTEROL RISK RATIO 4.782 (<5); GLOMERULAR FILTRATION RATE > 60.0 (>51); GLUCOSE, FASTING 164 MG/DL (70-100); HDL CHOLESTEROL 46 MG/DL (>40); LDL CHOLESTEROL 140 MG/DL (<100); NON-HDL-C 174 MG/DL; POTASSIUM SERUM 4.5 MEQ/L (3.5-5.1); SODIUM LEVEL 139 MEQ/L (136-145); TOTAL PROTEIN 7.4 GM/DL (6.4-8.2); TRIGLYCERIDES LEVEL 168 MG/DL (<150)
[2021-02-13 10:20] LABS: TOTAL 25(OH) VITAMIN D 40.2 NG/ML (30.0-100.0)
[2021-02-13 13:18] LABS: HEMOGLOBIN A1c 9.1 %
== END ==
LOC: M LAB 08:43
PROVIDERS: ATTEND Family Medicine
DX: R53.83 Other fatigue (principal); E03.9 Hypothyroidism, unspecified; I10 Essential (primary) hypertension

== ENCOUNTER → 2021-06-13 | Outpatient (CLI) | payer BC, SELFPAY ==
[2021-06-13 09:13] LABS: HEMATOCRIT 50.9 % (36.0-47.0); HEMOGLOBIN 16.7 g/dl (12.0-15.5); MEAN CORPUSCULAR HEMOGLOBIN 29.8 pg (27.0-33.0); MEAN CORPUSCULAR HGB CONC 32.8 g/dl (32.0-36.5); MEAN CORPUSCULAR VOLUME 90.9 fl (80.0-96.0); PLATELET COUNT, AUTOMATED 243 10^3/uL (150-450)
[2021-06-13 09:35] LABS: HEMOGLOBIN A1c 9.3 %
[2021-06-13 09:43] LABS: ALT/SGPT 55 U/L (12-78); BILIRUBIN,TOTAL 0.7 MG/DL (0.2-1.0); BLOOD UREA NITROGEN 14 MG/DL (7-18); CALCIUM LEVEL 9.9 MG/DL (8.5-10.1); CARBON DIOXIDE LEVEL 31 MEQ/L (21-32); CHLORIDE LEVEL 101 MEQ/L (98-107); CHOLESTEROL LEVEL 156 MG/DL (<200); CREATININE FOR GFR 0.78 MG/DL (0.55-1.30); GLOMERULAR FILTRATION RATE > 60.0 (>51); GLUCOSE, FASTING 203 MG/DL (70-100); HDL CHOLESTEROL 40 MG/DL (>40); LDL CHOLESTEROL 85 MG/DL (<100); NON-HDL-C 116 MG/DL; POTASSIUM SERUM 4.8 MEQ/L (3.5-5.1); SODIUM LEVEL 137 MEQ/L (136-145); TOTAL PROTEIN 7.6 GM/DL (6.4-8.2); TRIGLYCERIDES LEVEL 155 MG/DL (<150)
[2021-06-15 08:03] LABS: TOTAL 25(OH) VITAMIN D 42.7 NG/ML (30.0-100.0)
== END ==
LOC: M LAB 08:33
PROVIDERS: ATTEND Family Medicine
DX: R53.83 Other fatigue (principal); I10 Essential (primary) hypertension; E11.9 Type 2 diabetes mellitus without complications

== ENCOUNTER → 2021-07-31 | Outpatient (CLI) | payer BC | LOC: M CARPUL 10:49 | PROVIDERS: ATTEND Internal Medicine Endocrinology, Diabetes & Metabolism | DX: R01.1 Cardiac murmur, unspecified (principal) ==

== ENCOUNTER → 2021-07-31 | Outpatient (CLI) | payer BC | LOC: M LAB 10:59 | PROVIDERS: ATTEND Family Medicine | DX: Z79.899 Other long term (current) drug therapy (principal) ==

== ENCOUNTER → 2021-11-01 | Outpatient (CLI) | payer BC | LOC: M RAD 08:12 | PROVIDERS: ATTEND Family Medicine | DX: M25.512 Pain in left shoulder (principal); M25.511 Pain in right shoulder ==

== ENCOUNTER → 2023-02-18 | Outpatient (CLI) | payer BC ==
[~2023-02-18] MED LIST changes: -GABA-283 PO; +GABA-284 PO
[2023-02-18 09:47] LABS: HEMOGLOBIN 16.2 g/dl (12.0-15.5); MEAN CORPUSCULAR HEMOGLOBIN 30.4 pg (27.0-33.0); MEAN CORPUSCULAR HGB CONC 33.1 g/dl (32.0-36.5); MEAN CORPUSCULAR VOLUME 91.9 fl (80.0-96.0); PLATELET COUNT, AUTOMATED 165 10^3/uL (150-450); RED BLOOD COUNT 5.33 10^6/uL (4.00-5.40); WHITE BLOOD COUNT 5.1 10^3/uL (4.0-10.0)
[2023-02-18 10:30] LABS: HEMOGLOBIN A1c 10.1 % (4.0-6.0)
[2023-02-18 10:33] LABS: ALBUMIN 3.7 G/DL (3.2-5.2); ALKALINE PHOSPHATASE 151 U/L (46-116); ALT/SGPT 47 U/L (7.0-40); AST/SGOT 33 U/L (<34); BILIRUBIN,TOTAL 0.4 MG/DL (0.3-1.2); BLOOD UREA NITROGEN 17 MG/DL (9-23); CALCIUM LEVEL 9.4 MG/DL (8.3-10.6); CARBON DIOXIDE LEVEL 28 MMOL/L (20-31); CHLORIDE LEVEL 102 MMOL/L (98-107); CHOLESTEROL LEVEL 194 MG/DL (<200); CHOLESTEROL RISK RATIO 4.96 (<5); CREATININE FOR GFR 0.56 MG/DL (0.55-1.30); GLOMERULAR FILTRATION RATE > 60.0 (>45); GLUCOSE, FASTING 174 MG/DL (74-106); HDL CHOLESTEROL 39.1 MG/DL (>40); LDL CHOLESTEROL 109.3 MG/DL (<100); NON-HDL-C 154.9 MG/DL; POTASSIUM SERUM 4.2 MMOL/L (3.5-5.1); SODIUM LEVEL 137 MMOL/L (136-145); THYROID STIMULATING HORMONE 2.545 uIU/ML (0.55-4.78); TOTAL PROTEIN 7.1 G/DL (5.7-8.2); TRIGLYCERIDES LEVEL 228 MG/DL (<150)
== END ==
LOC: M LAB 08:43
PROVIDERS: ATTEND Family Medicine
DX: I10 Essential (primary) hypertension (principal); E11.9 Type 2 diabetes mellitus without complications; R53.83 Other fatigue; E03.9 Hypothyroidism, unspecified

== ENCOUNTER 2023-05-10 08:02 | Emergency (ER) | payer BC ==
[~2023-05-10] VITALS: Ht 165.1 cm; Wt 74.8 kg
[2023-05-10 09:51] LABS: BASO % 0.2 % (0.0-1.0); EOS % 0.1 % (0.0-3.0); HEMATOCRIT 47.7 % (36.0-47.0); HEMOGLOBIN 15.9 g/dl (12.0-15.5); LYMPH # 0.6 10^3/uL (1.5-5.0); LYMPH % 6.5 % (24.0-44.0); MEAN CORPUSCULAR HEMOGLOBIN 30.3 pg (27.0-33.0); MEAN CORPUSCULAR HGB CONC 33.3 g/dl (32.0-36.5); MEAN CORPUSCULAR VOLUME 90.9 fl (80.0-96.0); MONO # 0.7 10^3/uL (0.0-0.8); MONO % 7.7 % (2.0-8.0); NEUTROPHILS # 8.2 10^3/uL (1.5-8.5); NEUTROPHILS % 85.1 % (36.0-66.0); PLATELET COUNT, AUTOMATED 159 10^3/uL (150-450); RED BLOOD COUNT 5.25 10^6/uL (4.00-5.40); WHITE BLOOD COUNT 9.6 10^3/uL (4.0-10.0)
[2023-05-10] MEDS: FAMOTIDINE 20MG/2ML VIAL IVP ONE (09:57)
[2023-05-10] MEDS: ONDANSETRON 4MG 2ML VIAL IV ONE (09:57)
[2023-05-10] MEDS: ACETAMINOPHEN TAB 650MG DOSE (2X325MG) PO ONE (09:58)
[2023-05-10] MEDS: NS 1,000 ML IV ONE (09:59)
[2023-05-10 10:19] LABS: LIPASE 67 U/L (12-53)
[2023-05-10 10:21] LABS: ALBUMIN 3.8 G/DL (3.2-5.2); ALKALINE PHOSPHATASE 114 U/L (46-116); ALT/SGPT 44 U/L (7.0-40); AST/SGOT 31 U/L (<34); BILIRUBIN,DIRECT 0.6 MG/DL (<0.4); BILIRUBIN,TOTAL 1.9 MG/DL (0.3-1.2); CPK CREATINE PHOSPHOKINASE 53 U/L (34-145); TOTAL PROTEIN 7.2 G/DL (5.7-8.2)
[2023-05-10 10:26] LABS: CK-MB VALUE MASS < 1.0 NG/ML (<3.6); MB/CK RELATIVE INDEX 1.88 (< OR =4)
[2023-05-10] MEDS ORDERED: ISOVUE-370 76% 100ML VIAL As Ordered ONE (10:50)
[2023-05-10 11:00] LABS: CK-MB VALUE MASS < 1.0 NG/ML (<3.6); CPK CREATINE PHOSPHOKINASE 41 U/L (34-145); MB/CK RELATIVE INDEX 2.43 (< OR =4)
[2023-05-10] MEDS ORDERED: [UNRECOGNIZED DRUG - OTHER] PO (12:31)
[2023-05-10] MEDS ORDERED: FARX1TAB3 PO (12:31)
[2023-05-10] MEDS ORDERED: VITA500054 PO (12:31)
[2023-05-10] MEDS ORDERED: HOME MED LIST COMPLETE! XX SCH (12:35)
[2023-05-10] MEDS: KETOROLAC 30 MG/ML 1ML VIAL IV ONE (13:00)
[2023-05-10 14:17] VITALS: O2SAT 98
[2023-05-10 14:45] VITALS: BP 117/71; TEMP 97
[2023-05-10] MEDS ORDERED: OMEP40CA4 PO (14:57)
[2023-05-10] MEDS ORDERED: CARA1TAB6 PO (14:57)
== END 2023-05-10 15:09 | disposition home or self-care (01) ==
LOC: M ED 08:02
DX: R10.13 Epigastric pain (principal); B34.8 Other viral infections of unspecified site; R00.0 Tachycardia, unspecified; I44.4 Left anterior fascicular block; E11.9 Type 2 diabetes mellitus without complications; K21.9 Gastro-esophageal reflux disease without esophagitis; F17.200 Nicotine dependence, unspecified, uncomplicated; Z88.7 Allergy status to serum and vaccine; Z79.83 Long term (current) use of bisphosphonates; Z79.810 Long term (current) use of selective estrogen receptor modulators (SERMs); Z79.899 Other long term (current) drug therapy
CPT/HCPCS: 71046; 74177; 80047; 80076; 82550; 82553; 83690; 84484; 85025; 87040; 87486; 87581; 87633; 87798; 93005; 93041; 94760; 96361; 96374; 96375; 99285; J1885; J2405; Q9967; S0028

== ENCOUNTER → 2023-07-08 | Outpatient (CLI) | payer BC ==
[~2023-07-08] MED LIST changes: +CARA1TAB6 PO; +FARX1TAB3 PO; +METO200T15 PO; -METO200T28 PO; +VITA500054 PO; +[UNRECOGNIZED DRUG - OTHER] PO
[2023-07-08 09:08] LABS: HEMATOCRIT 46.9 % (36.0-47.0); HEMOGLOBIN 15.3 g/dl (12.0-15.5); MEAN CORPUSCULAR HEMOGLOBIN 30.2 pg (27.0-33.0); MEAN CORPUSCULAR HGB CONC 32.6 g/dl (32.0-36.5); MEAN CORPUSCULAR VOLUME 92.5 fl (80.0-96.0); PLATELET COUNT, AUTOMATED 167 10^3/uL (150-450); RED BLOOD COUNT 5.07 10^6/uL (4.00-5.40); WHITE BLOOD COUNT 5.3 10^3/uL (4.0-10.0)
[2023-07-08 09:38] LABS: ALBUMIN 3.6 G/DL (3.2-5.2); ALKALINE PHOSPHATASE 168 U/L (46-116); ALT/SGPT 38 U/L (7.0-40); AST/SGOT 24 U/L (<34); BILIRUBIN,TOTAL 0.3 MG/DL (0.3-1.2); BLOOD UREA NITROGEN 16 MG/DL (9-23); CALCIUM LEVEL 9.8 MG/DL (8.3-10.6); CARBON DIOXIDE LEVEL 28 MMOL/L (20-31); CHLORIDE LEVEL 104 MMOL/L (98-107); CHOLESTEROL LEVEL 128 MG/DL (<200); CHOLESTEROL RISK RATIO 2.88 (<5); CREATININE FOR GFR 0.62 MG/DL (0.55-1.30); GLOMERULAR FILTRATION RATE > 60.0 (>45); GLUCOSE, FASTING 230 MG/DL (74-106); HDL CHOLESTEROL 44.3 MG/DL (>40); LDL CHOLESTEROL 41.7 MG/DL (<100); NON-HDL-C 83.7 MG/DL; POTASSIUM SERUM 4.3 MMOL/L (3.5-5.1); SODIUM LEVEL 137 MMOL/L (136-145); TOTAL PROTEIN 7.2 G/DL (5.7-8.2); TRIGLYCERIDES LEVEL 210 MG/DL (<150)
[2023-07-08 09:39] LABS: THYROID STIMULATING HORMONE 3.102 uIU/ML (0.55-4.78)
[2023-07-08 09:40] LABS: TOTAL 25(OH) VITAMIN D 30.2 NG/ML (20.0-100.0)
[2023-07-08 09:54] LABS: HEMOGLOBIN A1c 9.5 % (4.0-6.0)
== END ==
LOC: M LAB 08:05
PROVIDERS: ATTEND Family Medicine
DX: I10 Essential (primary) hypertension (principal)

== ENCOUNTER → 2024-01-13 | Outpatient (REF) | payer BC ==
[2024-01-13 14:58] LABS: HEMATOCRIT 50.3 % (36.0-47.0); HEMOGLOBIN 16.1 g/dl (12.0-15.5); MEAN CORPUSCULAR HEMOGLOBIN 29.8 pg (27.0-33.0); PLATELET COUNT, AUTOMATED 188 10^3/uL (150-450); RED BLOOD COUNT 5.41 10^6/uL (4.00-5.40); WHITE BLOOD COUNT 5.7 10^3/uL (4.0-10.0)
[2024-01-13 15:29] LABS: ALBUMIN 3.8 G/DL (3.2-5.2); ALKALINE PHOSPHATASE 156 U/L (35-104); ALT/SGPT 49 U/L (7.0-40); AST/SGOT 41 U/L (<34); BILIRUBIN,TOTAL 0.5 MG/DL (0.3-1.2); BLOOD UREA NITROGEN 15 MG/DL (9-23); CALCIUM LEVEL 9.9 MG/DL (8.3-10.6); CARBON DIOXIDE LEVEL 28 MMOL/L (20-31); CHLORIDE LEVEL 106 MMOL/L (98-107); CHOLESTEROL LEVEL 162 MG/DL (<200); CHOLESTEROL RISK RATIO 3.39 (<5); CREATININE FOR GFR 0.63 MG/DL (0.55-1.30); GLOMERULAR FILTRATION RATE > 60.0 (>45); GLUCOSE, FASTING 123 MG/DL (74-106); HDL CHOLESTEROL 47.7 MG/DL (>40); LDL CHOLESTEROL 77.9 MG/DL (<100); NON-HDL-C 114.3 MG/DL; POTASSIUM SERUM 4.6 MMOL/L (3.5-5.1); SODIUM LEVEL 140 MMOL/L (136-145); TOTAL PROTEIN 7.4 G/DL (5.7-8.2); TRIGLYCERIDES LEVEL 182 MG/DL (<150)
[2024-01-13 15:32] LABS: THYROID STIMULATING HORMONE 2.909 uIU/ML (0.55-4.78); TOTAL 25(OH) VITAMIN D 83.7 NG/ML (20.0-100.0)
[2024-01-13 15:46] LABS: HEMOGLOBIN A1c 7.1 % (4.0-6.0)
== END ==
LOC: M LABDRWAD 13:16
PROVIDERS: ATTEND Family Medicine
DX: I10 Essential (primary) hypertension (principal); E11.9 Type 2 diabetes mellitus without complications; R53.83 Other fatigue

== ENCOUNTER 2024-05-17 08:49 | Day surgery (SDC) | payer BC ==
[~2024-05-17] VITALS: Ht 165.1 cm; Wt 75.7 kg
[~2024-05-17 08:49] MED LIST changes: +B-12100010 PO; -CYCL5TAB PO; +CYCL5TAB4 PO; +DULA4.5P SC; +ERGO500029 PO; +LIDOCAINE 2% 100MG/5ML SDV (FOR ANES.) As Ordered ONE; +METF-838 PO; +METO1TAB87 PO; +ONDA-282 SL; +SENN-186 PO; +SIMV20TA22 PO; +SUCR1TAB56 PO; +[UNRECOGNIZED DRUG - CODE] PO; +[UNRECOGNIZED DRUG - OTHER]; +fentaNYL 100 MCG/2 ML INJECTION As Ordered ONE; +propofoL 500 MG/50 ML VIAL As Ordered ONE
[2024-05-17] MEDS ORDERED: METOCLOPRAMIDE INJ 10MG/2ML VIAL As Ordered ONE (09:54)
[2024-05-17] MEDS ORDERED: ONDANSETRON 4MG 2ML VIAL As Ordered ONE (09:54)
[2024-05-17] MEDS ORDERED: GLUCAGON INJ 1MG VIAL As Ordered ONE (10:23)
[2024-05-17 10:55] VITALS: BP 124/73; O2SAT 96
== END 2024-05-17 11:02 | disposition home or self-care (01) ==
LOC: M OPP 08:49
PROVIDERS: ATTEND Internal Medicine Gastroenterology
DX: K63.5 Polyp of colon (principal); K63.89 Other specified diseases of intestine; K57.30 Diverticulosis of large intestine without perforation or abscess without bleeding; K64.8 Other hemorrhoids; R10.84 Generalized abdominal pain; R19.4 Change in bowel habit; K29.70 Gastritis, unspecified, without bleeding; R11.0 Nausea; Z88.7 Allergy status to serum and vaccine; Z79.84 Long term (current) use of oral hypoglycemic drugs; Z79.85 Long-term (current) use of injectable non-insulin antidiabetic drugs; Z79.899 Other long term (current) drug therapy
CPT/HCPCS: 43239; 45380; 45385; 88305; J1610; J2405; J2765; J3010

== ENCOUNTER → 2024-11-22 | Outpatient (CLI) | payer BC ==
[~2024-11-22] MED LIST changes: -LIDOCAINE 2% 100MG/5ML SDV (FOR ANES.) As Ordered ONE; -fentaNYL 100 MCG/2 ML INJECTION As Ordered ONE; -propofoL 500 MG/50 ML VIAL As Ordered ONE
[2024-11-22 13:47] LABS: PLATELET COUNT, AUTOMATED 185 10^3/uL (150-450)
[2024-11-22 13:54] LABS: ALT/SGPT 36 U/L (7.0-40); AST/SGOT 39 U/L (<34); CALCIUM LEVEL 10.2 MG/DL (8.3-10.6); CARBON DIOXIDE LEVEL 26 MMOL/L (20-31); CHLORIDE LEVEL 99 MMOL/L (98-107); CHOLESTEROL LEVEL 130 MG/DL (<200); CHOLESTEROL RISK RATIO 2.71 (<5); CREATININE FOR GFR 0.71 MG/DL (0.55-1.30); GLOMERULAR FILTRATION RATE > 90.0 (>45); LDL CHOLESTEROL 38.5 MG/DL (<100); NON-HDL-C 82.1 MG/DL; POTASSIUM SERUM 4.4 MMOL/L (3.5-5.1); SODIUM LEVEL 138 MMOL/L (136-145); TRIGLYCERIDES LEVEL 218 MG/DL (<150)
[2024-11-22 13:56] LABS: FREE T4 1.32 NG/DL (0.89-1.76)
[2024-11-22 14:15] LABS: ESTIMATED AVERAGE GLUCOSE 154.0 MG/DL (60-110)
[2024-11-22 14:20] LABS: CREATININE, URINE 22.9 MG/DL; MALB URINE SIEMENS 5.0 MG/L; MAU/CREAT RATIO 21.8 MCG/MG (0.0-30.0)
== END ==
LOC: M LABDRWAD 08:03
PROVIDERS: ATTEND Nurse Practitioner Family
DX: E11.65 Type 2 diabetes mellitus with hyperglycemia (principal)

== ENCOUNTER → 2024-12-20 | Outpatient (REF) | payer BC | LOC: M LAB REF 13:52 | PROVIDERS: ATTEND Internal Medicine | DX: M25.50 Pain in unspecified joint (principal) ==

== ENCOUNTER → 2025-01-24 | Outpatient (CLI) | payer BC | LOC: M WHC 15:40 | PROVIDERS: ATTEND Internal Medicine | DX: Z12.31 Encounter for screening mammogram for malignant neoplasm of breast (principal); R92.313 Mammographic fatty tissue density, bilateral breasts; R92.8 Other abnormal and inconclusive findings on diagnostic imaging of breast ==

== ENCOUNTER → 2025-02-20 | Outpatient (CLI) | payer BC | LOC: M WHC 13:59 | PROVIDERS: ATTEND Internal Medicine | DX: R92.8 Other abnormal and inconclusive findings on diagnostic imaging of breast (principal) ==